=== PATIENT | female | born 1950 | race Caucasian/White ===

== ENCOUNTER 2021-02-03 09:04 | Inpatient (IN) ==
--- NOTE | 2021-02-03 10:04 | Emergency Department Note ---
Impression & Plan COVID-19, ESRD (end stage renal disease), AV fistula occlusion, Hypoxia ED Provider Note NAME: NICKY RAMAN AGE: 70 SEX: F : 1950 ARRIVES VIA: Ambulance INFORMANT: Patient ED PROVIDER(S): Abhay Carlton DO CHIEF COMPLAINT: Weak HPI: Patient is a 70-year-old female who presents to the ER from heart side as she was found to be slightly tachycardic with a low blood pressure. Oxygen saturations were in the 70s. She notes that she is dialysis dependent Wednesday. They attempted to get dialysis on Wednesday but were unable to as her fistula was not working. They have not done anything for this over the weekend per the patient's report. She notes that she is Covid positive. She tested positive on the of this month. She admits that she has nonproductive cough. Patient denies any belly pain, nausea, vomiting, or diarrhea. No dysuria, urgency, or frequency. No other exacerbating or remitting factors. No chest pain. ROS: See above HPI for pertinent positives & negatives. A total of 10 systems re viewed and were otherwise negative. PAST MEDICAL HISTORY:See Below PAST SURGICAL HISTORY:See Below FAMILY HISTORY:See Below SOCIAL HISTORY:See Below HOME MEDICATIONS:See Below ALLERGIES:See Below VITALS:See Below PHYSICAL EXAMINATION: GENERAL: Sitting up in bed, alert, chronically ill-appearing, disheveled, talking in full sentences on 4 L nasal cannula with intermittent cough EYE EXAM: normal conjunctiva. OROPHARYNX: mask in place NECK: supple, no nuchal rigidity, no adenopathy, non-tender LUNGS: Diminished bilaterally. Normal chest wall mechanics HEART: no murmurs, S1 normal and S2 normal ABDOMEN: abdomen soft, non-tender, normo-active bowel sounds, no masses, no rebound or guarding. UPPER EXTREMITIES: upper extremities are grossly normal. No thrill over fistula in left upper extremity LOWER EXTREMITIES: No pitting edema. NEURO EXAM: Normal sensorium, cranial nerves II-XII grossly intact, normal speech, no gross weakness of arms, no gross weakness of legs. MEDICAL DECISION MAKING: Patient is a 70-year-old female who presents the ER for hypotension hypoxia and tachycardia from heart side. IV was established blood work was obtained. Attempted to get dialysis on Wednesday but were unsuccessful as the fistula was not working. Per the patient's report nothing was done over the weekend. IV was established blood work was obtained. Labs show a mild leukocytosis of 11,000. Mild anemia today. INR was unremarkable. BMP with a creatinine of 3.3. Potassium 4. LFTs bilirubin was unremarkable. Troponin was negative. Lipase was unremarkable. Covid was positive. Chest x-ray with bilateral infiltrates. Patient was hypoxic at 70% on room air and was placed on 4 L nasal cannula and titrated up to the 90s. She was updated bedside. She was given Decadron. Ultrasound of the fistula shows an occlusion. Patient was updated bedside. Discussed with hospitalist admitted for further work-up. Triage Nursing notes reviewed. Limited review of prior medical records performed Vital Signs: reviewed and remarkable for tachy Differential diagnosis: Differential diagnoses includes but is not limited to pneumonia, bronchitis, COPD/Asthma exacerbation, pneumothorax, pulmonary embolism, congestive heart failure, acute coronary syndrome ER treatment provided: See below Diagnostics interpreted by me: ECG:/Tachycardia rate of 107 Left axis No PVCs QTC 453 Cardiac Monitoring: An order was placed for continuous cardiac monitoring. The monitor shows a rate of 101 with sinus rhythm. Laboratory studies: As stated above and show below. Imaging studies: Arterial ultrasound of left upper extremity shows no clot Consultation(s): Discussed with the hospitalist for further evaluation Procedures: none Critical Care: I have personally spent 33 minutes of critical care time in the direct roger gement of this patient. This includes bedside care, interpretation of diagnostic studies, and testing, discussion with consultants, patient, and family members, and other required patient management activities. This 33 minutes is in excess of all separately billable procedures. Past Med/Surg History Medical History Diabetes ESRD (end stage renal disease) GERD (gastroesophageal reflux disease) Parkinson disease Family History Father Diabetes Social History Smoking Status: Former smoker Second Hand Exposure: No; Hx Alcohol Use: No Hx Substance Use: No Preferred Language: Citizen Of [place] Communication Ability: Effective Beliefs That Will Affect Care: None Current Living Situation: Personal Care Facility Current Living Situation Comment: [facility] [place] Per patient Feels Safe at Home: Yes Assistive Devices: Denture - Upper, Denture - Lower, Oxygen - Continuous and Walker Allergies Allergies Allergy/AdvReac Type Severity Reaction Status Date / Time aspirin Allergy Unknown as Per Unverified 02/03/21 10:59 [facility] ibuprofen Allergy Unknown as Per Unverified 02/03/21 10:59 [facility] Iodinated Contrast Media Allergy Unknown as Per Unverified 02/03/21 10:59 [facility] Home Meds Home Medications Medication Instructions Recorded Confirmed atorvastatin 20 mg tablet 20 mg PO HS 02/03/21 02/03/21 carbidopa 10 mg-levodopa 100 mg 1 tab PO TID 02/03/21 02/03/21 tablet citalopram 10 mg tablet 10 mg PO QAM 02/03/21 02/03/21 cranberry extract 250 mg tablet 125 mg PO BID 02/03/21 02/03/21 ergocalciferol (vitamin D2) 1,250 1,250 mcg PO Q14D 02/03/21 02/03/21 mcg (50,000 unit) capsule folic acid 1 mg tablet 1 mg PO QAM 02/03/21 02/03/21 hydrocodone 5 mg-acetaminophen 325 1 tab PO Q6H PRN 02/03/21 02/03/21 mg tablet hydroxyzine HCl 10 mg tablet 10 mg PO TID PRN 02/03/21 02/03/21 insulin glargine 100 unit/mL (3 20 unit SUBCUT HS 02/03/21 02/03/21 mL) subcutaneous pen (Basaglar KwikPen U-100 Insulin) insulin glargine 100 unit/mL (3 25 unit SUBCUT HS 02/03/21 02/03/21 mL) subcutaneous pen (Basaglar KwikPen U-100 Insulin) insulin lispro 100 unit/mL 0 unit SUBCUT [facility] 02/03/21 02/03/21 subcutaneous pen (Humalog KwikPen (U-100) Insulin) lansoprazole 30 mg capsule,delayed 30 mg PO QAM 02/03/21 02/03/21 release hzyien-gaajcyqz-ptlvror 2 cap PO TIDM 02/03/21 02/03/21 12,000-38,000-60,000 unit capsule,delayed rel (Creon) magnesium oxide 400 mg (241.3 mg 400 mg PO QAM 02/03/21 02/03/21 magnesium) tablet metoclopramide HCl 10 mg tablet 10 mg PO ACHS 02/03/21 02/03/21 midodrine 5 mg tablet 5 mg PO TID 02/03/21 02/03/21 multivitamin 1 tab PO PM 02/03/21 02/03/21 omega-3 fatty acids 1,000 mg 1,000 mg PO BID 02/03/21 02/03/21 capsule (Fish Oil Concentrate) permethrin 5 % topical cream 1 applic TOPICAL HS 02/03/21 02/03/21 Results & Data (ED) Vital Signs Vital Signs - 24 hr 02/03/21 08:55 02/03/21 09:10 02/03/21 09:30 Temperature Temperature Source Pulse Rate 108 H 106 H Pulse Rate from SpO2 Sensor 109 H 106 H Pulse Rhythm Respiratory Rate 36 H 27 H Respiratory Effort / Characteristics Respiratory Depth Respiratory Pattern Blood Pressure 144/73 H 135/71 Blood Pressure Mean 96 92 Blood Pressure Position Pulse Oximetry 79 L 87 L 96 Oxygen Delivery Method Oxygen Flow Rate 0 Sepsis Recent Fever Within 48 Hours Sepsis New/Unexplained Change in Mental Status Sepsis Action Taken by Nursing Oxygen Flow Rate - Titration 4 Pulse Oximetry Post Tiitration 94 02/03/21 09:36 02/03/21 09:43 02/03/21 10:00 Temperature 37.5 C Temperature Source Oral Pulse Rate 100 H 99 H Pulse Rate from SpO2 Sensor 99 H Pulse Rhythm Regular Respiratory Rate 24 30 H Respiratory Effort / Characteristics Non-Labored Respiratory Depth Normal Respiratory Pattern Regular Blood Pressure 135/71 149/77 H Blood Pressure Mean 92 101 Blood Pressure Position Lying Pulse Oximetry 79 L 95 98 Oxygen Delivery Method Room Air Nasal Cannula Oxygen Flow Rate 4 Sepsis Recent Fever Within 48 Hours No Sepsis New/Unexplained Change in Mental Status No Sepsis Action Taken by Nursing No Action Required Oxygen Flow Rate - Titration Pulse Oximetry Post Tiitration 02/03/21 11:00 02/03/21 12:50 02/03/21 13:00 Temperature Temperature Source Pulse Rate 98 H 100 H 99 H Pulse Rate from SpO2 Sensor 97 H 102 H 100 H Pulse Rhythm Respiratory Rate 26 H 27 H 31 H Respiratory Effort / Characteristics Respiratory Depth Respiratory Pattern Blood Pressure 146/82 H 144/82 H Blood Pressure Mean 103 102 Blood Pressure Position Pulse Oximetry 98 96 94 Oxygen Delivery Method Nasal Cannula Oxygen Flow Rate 4 Sepsis Recent Fever Within 48 Hours Sepsis New/Unexplained Change in Mental Status Sepsis Action Taken by Nursing Oxygen Flow Rate - Titration Pulse Oximetry Post Tiitration Laboratory Data Result diagrams: 02/03/21 11:00 02/03/21 11:00 Lab Results 02/03/21 02/03/21 02/03/21 Range/Units 10:40 10:40 11:00 WBC 11.72 H (4.8-10.8) K/uL RBC 2.51 L (4.2-5.4) M/uL Hgb 8.2 L (12.0-16.0) g/dL Hct 24.8 L (37-47) % MCV 98.8 (80-100) fL MCH 32.7 (25-34) pg MCHC 33.1 (32-36) g/dL RDW Std Deviation 46.0 (36.4-46.3) fL RDW Coeff of Tin 12.6 (11.5-14.5) % Plt Count 202 (130-400) K/uL MPV 9.4 (7.4-10.4) fL Immature Gran % (Auto) 0.3 % Neut % (Auto) 92.2 % Lymph % (Auto) 3.1 % Mcdonald % (Auto) 3.8 % Eos % (Auto) 0.5 % Baso % (Auto) 0.1 % Neut # (Auto) 10.80 H (1.4-6.5) K/uL Lymph # (Auto) 0.36 L (1.2-3.4) K/uL Mcdonald # (Auto) 0.45 (0.11-0.59) K/uL Eos # (Auto) 0.06 (0-0.5) K/uL Baso # (Auto) 0.01 (0-0.2) K/uL Immature Gran # (Auto) 0.04 H (0.00-0.02) K/uL PT (9.0-12.0) Seconds INR (0.9-1.1) APTT (21.0-31.0) Seconds PTT Ratio Sodium (136-145) mmol/L Potassium (3.5-5.1) mmol/L Chloride (98-107) mmol/L Carbon Dioxide (21-32) mmol/L Anion Gap (3-11) BUN (7-18) mg/dl Creatinine (0.6-1.2) mg/dl Est Cr Clr Drug Dosing ml/min Est GFR ( Amer) ml/min Est GFR (Non-Af Amer) ml/min BUN/Creatinine Ratio (10-20) Glucose (70-99) mg/dl Calcium (8.5-10.1) mg/dl Total Bilirubin (0.2-1) mg/dl AST (15-37) U/L ALT (12-78) U/L Alkaline Phosphatase (45-117) U/L Troponin I (0-0.045) ng/ml Total Protein (6.4-8.2) gm/dl Albumin (3.4-5.0) gm/dl Globulin (2.5-4.0) gm/dl Albumin/Globulin Ratio (0.9-2) Lipase (73-393) U/L COVID-19 Eval Order Covid19 at [facility] SARS-CoV-2 (PCR) POSITIVE A* (Negative) 02/03/21 02/03/21 Range/Units 11:00 11:00 WBC (4.8-10.8) K/uL RBC (4.2-5.4) M/uL Hgb (12.0-16.0) g/dL Hct (37-47) % MCV (80-100) fL MCH (25-34) pg MCHC (32-36) g/dL RDW Std Deviation (36.4-46.3) fL RDW Coeff of Tin (11.5-14.5) % Plt Count (130-400) K/uL MPV (7.4-10.4) fL Immature Gran % (Auto) % Neut % (Auto) % Lymph % (Auto) % Mcdonald % (Auto) % Eos % (Auto) % Baso % (Auto) % Neut # (Auto) (1.4-6.5) K/uL Lymph # (Auto) (1.2-3.4) K/uL Mcdonald # (Auto) (0.11-0.59) K/uL Eos # (Auto) (0-0.5) K/uL Baso # (Auto) (0-0.2) K/uL Immature Gran # (Auto) (0.00-0.02) K/uL PT 10.6 (9.0-12.0) Seconds INR 1.0 (0.9-1.1) APTT 29.0 (21.0-31.0) Seconds PTT Ratio 1.1 Sodium 133 L (136-145) mmol/L Potassium 4.1 (3.5-5.1) mmol/L Chloride 96 L (98-107) mmol/L Carbon Dioxide 28 (21-32) mmol/L Anion Gap 9.0 (3-11) BUN 40 H (7-18) mg/dl Creatinine 3.30 H (0.6-1.2) mg/dl Est Cr Clr Drug Dosing 13.3 ml/min Est GFR ( Amer) 15.4 ml/min Est GFR (Non-Af Amer) 13.3 ml/min BUN/Creatinine Ratio 12.0 (10-20) Glucose 143 H (70-99) mg/dl Calcium 9.1 (8.5-10.1) mg/dl Total Bilirubin 0.5 (0.2-1) mg/dl AST 16 (15-37) U/L ALT < 6 L (12-78) U/L Alkaline Phosphatase 110 (45-117) U/L Troponin I < 0.015 (0-0.045) ng/ml Total Protein 6.0 L (6.4-8.2) gm/dl Albumin 2.0 L (3.4-5.0) gm/dl Globulin 4.0 (2.5-4.0) gm/dl Albumin/Globulin Ratio 0.5 L (0.9-2) Lipase 35 L (73-393) U/L COVID-19 Eval Order SARS-CoV-2 (PCR) (Negative) Administered Medications Discontinued Medications Dexamethasone Sodium Phosphate (DexamethasonePf 10 Mg/Ml Vial) 6 mg IV NOW ONE Stop: 02/03/21 12:13 Last Admin: 02/03/21 12:52 Dose: 6 mg Documented by: [id number] Furosemide (Furosemide 40 Mg/4 Ml Vial) 40 mg IV NOW STA Stop: 02/03/21 13:24 Last Admin: 02/03/21 14:01 Dose: 40 mg Documented by: [id number] Imaging Data Radiologist's Impression: Chest X-Ray 02/03/21 09:43 XR chest 1V portable HISTORY: 70 years-old Female Chest Pain acute atypical chest pain COMPARISON: None TECHNIQUE: Portable AP view of the chest FINDINGS: Cardiac silhouette is enlarged. Suspected mild pulmonary vascular congestion. No pneumothorax. Subsegmental right lung base opacities. Left basilar with lateral left midlung airspace consolidation measures up to 6.6 cm. Vascular stent grafts of the left axillary and brachial distribution. Surgical clips of the abdominal right upper quadrant. Degenerative changes of the shoulders and spine. IMPRESSION: 1. Cardiomegaly with pulmonary vascular congestion. 2. Left greater than right bibasilar opacities with masslike consolidation of the left midlung. Findings may represent multifocal pneumonia, however follow-up is needed to document complete resolution and exclude an underlying pulmonary lesion. ACT 112: Negative or not required by law. The above report was generated using voice recognition software. It may contain grammatical, syntax or spelling errors. Electronically signed by: Rafa Romero M.D. 02/03/2021 11:31 AM Hemodialysis Access Duplex US 02/03/21 09:58 US hemodialysis access CLINICAL HISTORY: fistula not working is covid + COMPARISON STUDY: No previous studies for comparison. TECHNIQUE: Grayscale, color and duplex Doppler sonography of the left upper extremity AV fistula was performed. FINDINGS: A left upper AV fistula is noted. This likely extends from the brachial artery to basilic vein. There is flow within the proximal anastomosis. Peak systolic velocity is 128 cm/s. However, no flow is identified within the remainder of the left upper extremity AV fistula. This represents fistula occlusion. IMPRESSION: Occluded left upper extremity AV fistula. ACT 112: Negative or not required by law. Electronically signed by: Yonatan Hobbs M.D. 02/03/2021 12:18 PM Discharge Plan Visit Data Chief Complaint: Respiratory Problems ED Provider: Abhay Carlton Discharge Problem: COVID-19, ESRD (end stage renal disease), AV fistula occlusion, Hypoxia Patient Disposition: Admitted As Inpatient Discharge Instructions Interventions: ED Discharge Assessment Last Done: 02/03/21 14:38
[2021-02-03 11:18] LABS: Basophils # (auto) 0.01 K/uL (0-0.2); Basophils % (auto) 0.1 %; Eosinophils # (auto) 0.06 K/uL (0-0.5); Eosinophils % (auto) 0.5 %; Hematocrit (blood only) 24.8 % (37-47); Hemoglobin 8.2 g/dL (12.0-16.0); Immature Granulocytes # (auto) 0.04 K/uL (0.00-0.02); Immature Granulocytes % (auto) 0.3 %; Lymphocytes # (auto) 0.36 K/uL (1.2-3.4); Lymphocytes % (auto) 3.1 %; Mean Corpuscular Hemoglobin 32.7 pg (25-34); Mean Corpuscular Hgb Conc 33.1 g/dL (32-36); Mean Corpuscular Volume 98.8 fL (80-100); Mean Platelet Volume 9.4 fL (7.4-10.4); Monocytes # (auto) 0.45 K/uL (0.11-0.59); Monocytes % (auto) 3.8 %; Neutrophils % (auto) 92.2 %; Platelet Count 202 K/uL (130-400); RDW Coefficient of Variation 12.6 % (11.5-14.5); Red Blood Count 2.51 M/uL (4.2-5.4); White Blood Count 11.72 K/uL (4.8-10.8)
[2021-02-03 11:29] LABS: Partial Thromboplastin Ratio 1.1; Prothrombin Time 10.6 Seconds (9.0-12.0)
--- NOTE | 2021-02-03 11:33 | XRay Report ---
XR chest 1V portable HISTORY: 70 years-old Female Chest Pain acute atypical chest pain COMPARISON: None TECHNIQUE: Portable AP view of the chest FINDINGS: Cardiac silhouette is enlarged. Suspected mild pulmonary vascular congestion. No pneumothorax. Subseg mental right lung base opacities. Left basilar with lateral left midlung airspace consolidation measu res up to 6.6 cm. Vascular stent grafts of the left axillary and brachial distribution. Surgical clip s of the abdominal right upper quadrant. Degenerative changes of the shoulders and spine. IMPRESSION: 1. Cardiomegaly with pulmonary vascular congestion. 2. Left greater than right bibasilar opacities with masslike consolidation of the left midlung. Findi ngs may represent multifocal pneumonia, however follow-up is needed to document complete resolution a nd exclude an underlying pulmonary lesion. ACT 112: Negative or not required by law. The above report was generated using voice recognition software. It may contain grammatical, syntax o r spelling errors. Electronically signed by: Rafa Romero M.D. 02/03/2021 11:31 AM
[2021-02-03 11:45] LABS: Alanine Aminotransferase < 6 U/L (12-78); Aspartate Aminotransferase 16 U/L (15-37); Blood Urea Nitrogen 40 mg/dl (7-18); Calcium 9.1 mg/dl (8.5-10.1); Carbon Dioxide 28 mmol/L (21-32); Chloride 96 mmol/L (98-107); Creatinine Clr Calc Pharmacy 13.3 ml/min; Est GFR (African American) 15.4 ml/min; Est GFR (Non-African American) 13.3 ml/min; Glucose 143 mg/dl (70-99); Lipase 35 U/L (73-393); Potassium 4.1 mmol/L (3.5-5.1); Sodium 133 mmol/L (136-145)
[2021-02-03 11:50] LABS: Albumin Globulin Ratio 0.5 (0.9-2); Alkaline Phosphatase 110 U/L (45-117); Bilirubin,Total 0.5 mg/dl (0.2-1); Troponin I < 0.015 ng/ml (0-0.045)
[2021-02-03] MEDS ORDERED: dexAMETHasone**PF** 10 MG/ML VIAL IV ONE (12:12)
--- NOTE | 2021-02-03 12:19 | Ultrasound Report ---
US hemodialysis access CLINICAL HISTORY: fistula not working is covid + COMPARISON STUDY: No previous studies for comparison. TECHNIQUE: Grayscale, color and duplex Doppler sonography of the left upper extremity AV fistula was performed. FINDINGS: A left upper AV fistula is noted. This likely extends from the brachial artery to basilic v ein. There is flow within the proximal anastomosis. Peak systolic velocity is 128 cm/s. However, no f low is identified within the remainder of the left upper extremity AV fistula. This represents fistul a occlusion. IMPRESSION: Occluded left upper extremity AV fistula. ACT 112: Negative or not required by law. Electronically signed by: Yonatan Hobbs M.D. 02/03/2021 12:18 PM
[2021-02-03] MEDS ORDERED: FUROSEMIDE 40 MG/4 ML VIAL IV STA (13:23)
--- NOTE | 2021-02-03 13:34 | History & Physical Report ---
Date of Service February 03, 2021 Assessment & Plan (1) AV fistula occlusion: Plan: AVF Duplex on admission showed occlusion. Likely occluded since HD session on Wednesday, 01/31. - Vascular surgery consulted -> Discussed with Demetria Esparza. Will make patient NPO at midnight. Will be seen in the morning with plan for fistula opening vs. tunnelled-line tomorrow. - Continue Plavix (2) ESRD (end stage renal disease): Plan: Per patient, she follows with [facility] in [place]. Only gets HD on Wednesday and Fridays and continues to make urine. - CXR indicated volume overload - Discussed with nephrology -> Give dose of Lasix and will plan for HD once access established (likely tomorrow). - Continue midodrine (3) COVID-19: Plan: Reports being diagnosed ~01/21/2021 with no symptoms at the time (routine SNF testing). A few days later, developed cough which has persisted. Otherwise, no symptoms. - Hold dexamethasone at this time. Unclear to me if her symptoms are related to volume overload vs. Covid - Monitor O2 sats -> Presently only requiring 2L NC. If her O2 worsens despite diuresis and improvement in volume status, would start steroids. - Continue isolation precautions (4) Diabetes: Plan: No known A1c. Does not know her regimen at [facility]. - Long-acting dropped to 15 units HS (from either 20 units, 25 units, or 45 units; it is unclear and patient doesn't know). - Sliding scale insulin - Ordered A1c for AM (5) Parkinson disease: Plan: Presumed diagnosis. - Continue Sinemet (6) GERD (gastroesophageal reflux disease): Plan: - Continue PPI (7) DVT prophylaxis: Plan: Heparin 5000 units SQ Q12h History of Present Illness Primary Care Provider: Phan Modidhruv 70yo F w/ hx of DM and ESRD who presents to the hospital with hypoxemia from her SNF. She reports that she got routine testing for Covid around 01/21/2021 at [facility]. A few days after that, she reports she developed a cough that has continued to today. Otherwise, she denies fevers/chills/sweats, nasal congestion, shortness of breath, diarrhea, constipation or other issues from the Covid. On Wednesday, she was at her HD session, and they were unable to run her session due to flow issues. She was sent back to [facility] without her session. Today, she was noted to be hypoxemic and was sent to the ED for evaluation. She denies any worsening of her cough today and denies shortness of breath during my inteview. Allergies Allergy/AdvReac Type Severity Reaction Status Date / Time aspirin Allergy Unknown as Per Unverified 02/03/21 10:59 [facility] ibuprofen Allergy Unknown as Per Unverified 02/03/21 10:59 [facility] Iodinated Contrast Media Allergy Unknown as Per Unverified 02/03/21 10:59 [facility] Home Medications Medication Instructions Recorded Confirmed Type atorvastatin 20 mg tablet 20 mg PO HS 02/03/21 02/03/21 History carbidopa 10 mg-levodopa 100 mg 1 tab PO TID 02/03/21 02/03/21 History tablet citalopram 10 mg tablet 10 mg PO QAM 02/03/21 02/03/21 History cranberry extract 250 mg tablet 125 mg PO BID 02/03/21 02/03/21 History ergocalciferol (vitamin D2) 1,250 1,250 mcg PO Q14D 02/03/21 02/03/21 History mcg (50,000 unit) capsule folic acid 1 mg tablet 1 mg PO QAM 02/03/21 02/03/21 History hydrocodone 5 mg-acetaminophen 325 1 tab PO Q6H PRN 02/03/21 02/03/21 History mg tablet hydroxyzine HCl 10 mg tablet 10 mg PO TID PRN 02/03/21 02/03/21 History insulin glargine 100 unit/mL (3 20 unit SUBCUT HS 02/03/21 02/03/21 History mL) subcutaneous pen (Basaglar KwikPen U-100 Insulin) insulin glargine 100 unit/mL (3 25 unit SUBCUT HS 02/03/21 02/03/21 History mL) subcutaneous pen (Basaglar KwikPen U-100 Insulin) insulin lispro 100 unit/mL 0 unit SUBCUT ACHS 02/03/21 02/03/21 History subcutaneous pen (Humalog KwikPen (U-100) Insulin) lansoprazole 30 mg capsule,delayed 30 mg PO QAM 02/03/21 02/03/21 History release uzpviv-voofnwbm-gltkral 2 cap PO TIDM 02/03/21 02/03/21 History 12,000-38,000-60,000 unit capsule,delayed rel (Creon) magnesium oxide 400 mg (241.3 mg 400 mg PO QAM 02/03/21 02/03/21 History magnesium) tablet metoclopramide HCl 10 mg tablet 10 mg PO ACHS 02/03/21 02/03/21 History midodrine 5 mg tablet 5 mg PO TID 02/03/21 02/03/21 History multivitamin 1 tab PO PM 02/03/21 02/03/21 History omega-3 fatty acids 1,000 mg 1,000 mg PO BID 02/03/21 02/03/21 History capsule (Fish Oil Concentrate) permethrin 5 % topical cream 1 applic TOPICAL HS 02/03/21 02/03/21 History Past Med/Surg History Medical History Diabetes ESRD (end stage renal disease) GERD (gastroesophageal reflux disease) Parkinson disease Family History Father Diabetes Social History Preferred Language: French Feels Safe at Home: Yes Review of Systems Review of Systems: All systems reviewed & are unremarkable except as noted in HPI & below Physical Exam Constitutional: WD/WN, vitals as above Eyes: EOM intact bilaterally; no conjunctival abnormality ENMT: external ear and nose normal, oropharynx normal Neck: trachea midline, no thyromegaly normal visual inspection Respiratory: normal respiratory effort, lungs clear to auscultation no respiratory distress Cardiovascular: RRR, no murmur, no edema Extremities: + AV fistula (No bruit) Gastrointestinal (Abdomen): Inspection/Auscultation: abdomen normal to inspection; abdomen not distended Musculoskeletal: no cyanosis or clubbing, extremities motor strength 5/5 Skin: no rashes, warm and dry Neurologic: moves all extremities and awake Psychiatric: Orientation: alert, oriented to person and cooperative Results & Data Results & Data ([facility]) Vital Signs (Past 12 Hours) Vital Signs Temp Pulse Resp BP Pulse Ox 02/03/21 12:50 100 H 27 H 146/82 H 96 02/03/21 11:00 98 H 26 H 98 02/03/21 10:00 99 H 30 H 149/77 H 98 02/03/21 09:43 95 02/03/21 09:36 37.5 C 100 H 24 135/71 79 L 02/03/21 09:30 106 H 27 H 135/71 96 02/03/21 09:10 108 H 36 H 144/73 H 87 L 02/03/21 08:55 79 L Code Status & VTE Plan VTE Prophylaxis Plan VTE Prophylaxis will be ordered: Yes PG Care Time/CCT Total # of Minutes Spent Total Time Spent with Patient: Total time spent is greater than 50% in coordination of care (as documented) at patient's floor/unit and/or counseling patient: Coding Level of Care Code 96650 Initial Inpt Care Lvl 3 Diagnoses AV fistula occlusion T82.898A COVID-19 U07.1 ESRD (end stage renal disease) N18.6 Diabetes E11.9 Parkinson disease G20 GERD (gastroesophageal reflux disease) K21.9 DVT prophylaxis Z29.9
--- NOTE | 2021-02-03 14:32 | Nephrology Consultation ---
Date of Consultation February 03, 2021 Assessment & Plan (1) ESRD (end stage renal disease): ESRD on HD MWF, admitted with nonfunctioning AV fistula and missed dialysis. Last dialysis was last Wednesday. Currently volume overloaded with elevated blood pressure. Electrolyte acceptable. Doppler of AV fistula showed clotted AV fistula. -- Appreciate vascular surgery evaluation, may need tunneled dialysis catheter if AV fistula cannot be declotted tomorrow. -- Bumex 4 mg IV x 1 dose now -- continued Nephrocaps and renal diet -- dose medications for GFR less than 10 -- Avoid IV fluid Thank you for allowing me to participate in your patient's care. It was a pleasure to see Federica. History of Present Illness Reason for Consultation: ESRD on HD, Malfunctioning hemodialysis access, missed HD. History of Present Illness Federica Herrera is a 70-year-old female with ESRD on hemodialysis Wednesday admitted to the hospital with malfunctioning AV fistula. Nephrology consult was requested to manage dialysis. EMR records reviewed in detail during patient's visit. Federica has ESRD on hemodialysis MWF at [facility] in [place]. She has been staying at [facility] in [place] for last 1 week after a fall. She went for dialysis Wednesday when she was found to have malfunctioning AV fistula and dialysis was canceled. As over the weekend she was getting short of breath and her oxygen saturation was found to be low at [facility] she was brought to ER. In ER Doppler of AV fistula showed clotted left BC AV fistula. Vascular surgery was consulted for further management. She reports having some shortness of breath which improved with NC O2. She still makes urine. Chest x- ray showed bilateral pulmonary vascular congestion. Lab showed normal electrolyte. She was also found to be COVID positive, did receive COVID vaccine in June. Never smoker, no f/h of ESRD, CKD. Retired, lives in a intermediate designer care facility in [facility]. Receive Lasix 40 mg/d. Allergies Allergy/AdvReac Type Severity Reaction Status Date / Time aspirin Allergy Unknown as Per Unverified 02/03/21 10:59 [facility] MAR ibuprofen Allergy Unknown as Per Unverified 02/03/21 10:59 [facility] Iodinated Contrast Media Allergy Unknown as Per Unverified 02/03/21 10:59 [facility] MAR Home Medications Medication Instructions Recorded Confirmed Type atorvastatin 20 mg tablet 20 mg PO HS 02/03/21 02/03/21 History carbidopa 10 mg-levodopa 100 mg 1 tab PO TID 02/03/21 02/03/21 History tablet citalopram 10 mg tablet 10 mg PO QAM 02/03/21 02/03/21 History cranberry extract 250 mg tablet 125 mg PO BID 02/03/21 02/03/21 History ergocalciferol (vitamin D2) 1,250 1,250 mcg PO Q14D 02/03/21 02/03/21 History mcg (50,000 unit) capsule folic acid 1 mg tablet 1 mg PO QAM 02/03/21 02/03/21 History hydrocodone 5 mg-acetaminophen 325 1 tab PO Q6H PRN 02/03/21 02/03/21 History mg tablet hydroxyzine HCl 10 mg tablet 10 mg PO TID PRN 02/03/21 02/03/21 History insulin glargine 100 unit/mL (3 20 unit SUBCUT HS 02/03/21 02/03/21 History mL) subcutaneous pen (Basaglar KwikPen U-100 Insulin) insulin glargine 100 unit/mL (3 25 unit SUBCUT 02/03/21 02/03/21 History mL) subcutaneous pen (Basaglar KwikPen U-100 Insulin) insulin lispro 100 unit/mL 0 unit SUBCUT [facility] 02/03/21 02/03/21 History subcutaneous pen (Humalog KwikPen (U-100) Insulin) lansoprazole 30 mg capsule,delayed 30 mg PO QAM 02/03/21 02/03/21 History release [id number] 2 cap PO TIDM 02/03/21 02/03/21 History 12,000-38,000-60,000 unit capsule,delayed rel (Creon) magnesium oxide 400 mg (241.3 mg 400 mg PO QAM 02/03/21 02/03/21 History magnesium) tablet metoclopramide HCl 10 mg tablet 10 mg PO ACHS 02/03/21 02/03/21 History midodrine 5 mg tablet 5 mg PO TID 02/03/21 02/03/21 History multivitamin 1 tab PO PM 02/03/21 02/03/21 History omega-3 fatty acids 1,000 mg 1,000 mg PO BID 02/03/21 02/03/21 History capsule (Fish Oil Concentrate) permethrin 5 % topical cream 1 applic TOPICAL HS 02/03/21 02/03/21 History Patient History Medical History Diabetes ESRD (end stage renal disease) GERD (gastroesophageal reflux disease) Parkinson disease Family History Father Diabetes Social History Smoking Status: Former smoker Second Hand Exposure: No; Hx Alcohol Use: No Hx Substance Use: No Preferred Language: Yakut Communication Ability: Effective Beliefs That Will Affect Care: None Current Living Situation: Personal Care Facility Current Living Situation Comment: [facility] [place] Per patient Feels Safe at Home: Yes Assistive Devices: Denture - Upper, Denture - Lower, Oxygen - Continuous and Walker Review of Systems Review of Systems: Detailed review of system was otherwise unremarkable except mentioned in HPI Physical Exam Constitutional: WD/WN, vitals as above well developed and well nourished; no acute distress Eyes: PERRL, conjunctivae normal, anicteric sclerae ENMT: external ear and nose normal, oropharynx normal Ears: no hearing impairment Neck: trachea midline Respiratory: no cough Auscultation: + crackles; no wheezes Cardiovascular: RRR, no murmur, no edema Extremities: + AV fistula (left BC AVF with no thrill or bruit.) Gastrointestinal (Abdomen): normal bowel sounds, soft, nontender, no hepatosplenomegaly Percussion/Palpation: abdomen nontender, no guarding and abdomen not rigid Musculoskeletal: Extremities: extremities normal to inspection Gait: normal gait Skin: no rashes, warm and dry Neurologic: moves all extremities and awake Psychiatric: A+Ox3, euthymic affect Results & Data ([facility]) Vital Signs (Past 12 Hours) Vital Signs Temp Pulse Resp BP Pulse Ox 02/03/21 14:00 99 H 20 153/98 H 93 02/03/21 13:30 97 H 21 155/108 H 93 02/03/21 13:00 99 H 31 H 144/82 H 94 02/03/21 12:50 100 H 27 H 146/82 H 96 02/03/21 11:00 98 H 26 H 98 02/03/21 10:00 99 H 30 H 149/77 H 98 02/03/21 09:43 95 02/03/21 09:36 37.5 C 100 H 24 135/71 79 L 02/03/21 09:30 106 H 27 H 135/71 96 02/03/21 09:10 108 H 36 H 144/73 H 87 L 02/03/21 08:55 79 L PG Care Time/CCT Total # of Minutes Spent Total Time Spent with Patient: Total time spent is greater than 50% in coordination of care (as documented) at patient's floor/unit and/or counseling patient: Coding Level of Care Code 07871 Inpt Consult Level 3 Diagnoses ESRD (end stage renal disease) N18.6
[2021-02-03] MEDS ORDERED: ONDANSETRON INJ 2 MG/ML 2 ML VIAL IV PRN (15:30)
[2021-02-03] MEDS ORDERED: GLUCOSE 40% GEL 15 GM TUBE PO PRN (15:30)
[2021-02-03] MEDS ORDERED: GLUCOSE 10 TABS/TUBE PO PRN (15:30)
[2021-02-03] MEDS ORDERED: HYDROCODONE/ACETAMOPHEN 5/325MG TAB PO PRN (15:30)
[2021-02-03] MEDS ORDERED: GLUCAGON FOR INJ 1 MG VIAL SQ PRN (15:30)
[2021-02-03] MEDS ORDERED: DEXTROSE 50% 50 ML SYRINGE IV PRN (15:30)
[2021-02-03] MEDS ORDERED: BUMETANIDE IV BOLUS FROM BAG IV ONE (15:38)
[2021-02-03] MEDS ORDERED: BUMETANIDE 4 MG in SYRINGE 0 ML IV ONE (16:00)
[2021-02-03] MEDS: INSULIN ASPART 100 UNITS/ML 3 ML PEN SC SCH ×2 (17:18→21:50)
[2021-02-03] MEDS: CARBIDOPA/LEVODOP 10/100MG TAB PO SCH ×2 (18:03→21:39)
[2021-02-03] MEDS: PANCREAZE (LIPASE 10,500U) CAP PO SCH (18:04)
[2021-02-03] MEDS: MIDODRINE HCL 2.5 MG TAB PO SCH (18:05)
[2021-02-03] MEDS: METOCLOPRAMIDE HCL 10 MG TABLET PO SCH ×2 (18:05→21:38)
[2021-02-03] MEDS: ATORVASTATIN 20 MG TAB PO SCH (21:39)
[2021-02-03] MEDS: HEPARIN SOD 5,000 UNIT/0.5 ML VIAL SQ SCH ×2 (21:40→22:50)
[2021-02-03] MEDS: INSULIN GLARGINE SOLOSTAR 100 UNITS/ML 3 ML PEN SQ SCH (21:50)
[2021-02-04] MEDS ORDERED: INSULIN HUMAN REGULAR PER UNIT 5 UNITS in SYRINGE 4.95 ML IV ONE (01:00)
[2021-02-04] MEDS ORDERED: INSULIN ASPART 100 UNITS/ML 3 ML PEN SC ONE (01:00)
[2021-02-04] MEDS: ACETAMINOPHEN 325 MG TAB PO PRN (04:06)
[2021-02-04 06:59] LABS: Hematocrit (blood only) 24.9 % (37-47); Hemoglobin 8.4 g/dL (12.0-16.0); Mean Corpuscular Hemoglobin 32.7 pg (25-34); Mean Corpuscular Hgb Conc 33.7 g/dL (32-36); Mean Corpuscular Volume 96.9 fL (80-100); Mean Platelet Volume 9.9 fL (7.4-10.4); Platelet Count 241 K/uL (130-400); RDW Coefficient of Variation 12.7 % (11.5-14.5); RDW Standard Deviation 44.6 fL (36.4-46.3); Red Blood Count 2.57 M/uL (4.2-5.4); White Blood Count 7.59 K/uL (4.8-10.8)
[2021-02-04 07:27] LABS: BUN Creatinine Ratio 14.7 (10-20); Calcium 9.7 mg/dl (8.5-10.1); Creatinine Clr Calc Pharmacy 12.7 ml/min; Est GFR (African American) 14.5 ml/min; Est GFR (Non-African American) 12.5 ml/min; Magnesium 1.9 mg/dl (1.8-2.4); Potassium 4.1 mmol/L (3.5-5.1)
[2021-02-04] MEDS ORDERED: EPOETIN ALFA 20,000 UNITS/ML VIAL IV STA (08:09)
[2021-02-04] MEDS: INSULIN ASPART 100 UNITS/ML 3 ML PEN SC SCH ×4 (08:20→21:55)
--- NOTE | 2021-02-04 08:44 | XRay Report ---
XR chest 1V portable HISTORY: 70 years-old Female hypoxia acute hypoxia COMPARISON: Chest radiograph 02/03/2021 TECHNIQUE: Portable AP view of the chest FINDINGS: Cardiac silhouette is enlarged. Mildly decreased pulmonary vascular congestion. No pneumothorax. Prob able trace left pleural effusion. Left greater than right bibasilar with masslike lateral left midlun g airspace consolidation. Lucency within the large consolidation may reflect central cavitation. No s ignificant change from comparison. Vascular grafts of the left subclavian brachial distributions. No acute fracture. IMPRESSION: 1. Persistent bibasilar opacities with masslike consolidation of the lateral left midlung containing equivocal central cavitation. Correlation with chest CT recommended. 2. Cardiomegaly. 3. Trace left pleural effusion suggested. ACT 112: Negative or not required by law. The above report was generated using voice recognition software. It may contain grammatical, syntax o r spelling errors. Electronically signed by: Rafa Romero M.D. 02/04/2021 8:43 AM
[2021-02-04 09:04] LABS: Estimated Average Glucose 148 mg/dl; Hemoglobin A1C 6.8 % (4.5-5.6)
[2021-02-04 09:05] LABS: Hepatitis B Surface Ab Quant 23.89 mIU/mL (>or=10mIU/mL Immune); Hepatitis B Surface Antibody Immune
[2021-02-04 09:16] LABS: Hepatitis B Surf Ag Rflx Conf Neg (Neg)
--- NOTE | 2021-02-04 10:30 | Nephrology Progress Note ---
Date of Service February 04, 2021 Assessment & Plan (1) ESRD (end stage renal disease): (2) AV fistula occlusion: (3) Anemia due to chronic kidney disease: (4) COVID-19: Plan: ESRD on HD MWF, admitted with nonfunctioning AV fistula and missed dialysis. Last dialysis was last Wednesday. Currently volume overloaded with elevated blood pressure. Electrolyte acceptable. Doppler of AV fistula showed clotted AV fistula. -- waiting on AV fistula declotting or TDC today. -- Epogen 68408 units with HD today -- continued Nephrocaps and renal diet -- dose medications for GFR less than 10 -- Avoid IV fluid Will follow Admission and Anticipated Discharge Date Admission Date: February 03, 2021 Subjective Labs and vital signs reviewed, electrolyte has been acceptable. Blood pressure well controlled. Continue to be on 6 L oxygen via nasal cannula. Had 650 mL urine output after Bumex 4 mg IV yesterday. Waiting on AV fistula declotting/ tunnel dialysis catheter today. Physical Exam Physical Exam: a direct physical exam was not done as patient is in COVID isolation Results & Data ([facility]) Vital Signs (Past 12 Hours) Vital Signs Temp Pulse Resp BP Pulse Ox 02/04/21 07:33 36.6 C 109 H 20 132/71 98 02/04/21 03:43 36.9 C 97 H 20 100/57 L 92 02/03/21 22:41 36.8 C 98 H 22 102/43 L 97 PG Care Time/CCT Total # of Minutes Spent Total Time Spent with Patient: Total time spent is greater than 50% in coordination of care (as documented) at patient's floor/unit and/or counseling patient: Coding Level of Care Code 06119 Subseq Hosp Care Lvl 2 Diagnoses ESRD (end stage renal disease) N18.6 AV fistula occlusion T82.898A Encounter type: initial encounter Anemia due to chronic kidney disease N18.9; D63.1 COVID-19 U07.1 (1) AV fistula occlusion Encounter type: initial encounter Qualified Code(s): T82.898A - Other specified complication of vascular prosthetic devices, implants and grafts, initial encounter
--- NOTE | 2021-02-04 11:38 | Procedure Note ---
Procedure Note Date of Service February 04, 2021 Note Procedure date: Noted above Procedure: Temporary hemodialysis catheter Pre-procedure indication: Need for temporary hemodialysis access Post-procedure Diagnosis: same as above Prior to Procedure: Informed Consent: The risks, benefits, indications, potential complications, and alternatives were explained to the patient and informed consent obtained, verbally due to COVID-19 protocol. Attending Staff: Joshua Sandhu DO Resident/APC: Not applicable Skin Prep: Chlorhexidine Anesthesia: 4 mL 1% lidocaine without epinephrine The identity of the patient was confirmed and a bedside time out was performed. Description of Procedure: After sterile prep and sterile drape utilizing standard sterile technique the superficial skin of the left jugular area was anesthetized. The target vessel was identified and entered with an 18-gauge needle. Dark venous blood return was noted. A guidewire was inserted through the needle and into the vessel. The needle was withdrawn and a skin wisam was made. A tissue dilator was advanced via Seldinger technique and removed. A double lumen catheter was inserted via Seldinger technique and the guidewire removed. All ports reid and flushed easily. A Biopatch was placed, and the catheter was secured via nylon suture. A sterile dressing was then applied. Complications: None Estimated blood loss: Trace Patient tolerated the procedure well. Procedure Date: Noted Above Procedure: Procedural Ultrasound Indication: Central venous access Attending: Joshua Sandhu DO Resident/Physician Rd Scientist: Not applicable Artery visualized: Yes Vein visualized: Yes Compressible Vein: Yes Vein patent: Yes Guidewire or Short Catheter seen in vein prior to dilation: Yes Line confirmed in Vein with ultrasound: Yes Lung Sliding on side of attempt (if applicable): NA If no lung sliding or not obtained has CXR been ordered: Yes Impression: Successful central venous access placement Coding CPT Codes Tubes, Drains, and Vasc Access - Tubes, Drains, and Vasc Access: [id number] Insertion Of Non-tunneled Catheter Age 3 Yrs> ([id number]) [facility] Procedure Codes (Charges) Tubes, Drains, and Vasc Access Procedure 1: Tubes, Drains, and Vasc Access: [id number] Insertion Of Non-tunneled Catheter Age 3 Yrs>
[2021-02-04] MEDS: PANCREAZE (LIPASE 10,500U) CAP PO SCH ×3 (11:56→17:49)
[2021-02-04] MEDS: METOCLOPRAMIDE HCL 10 MG TABLET PO SCH ×4 (11:56→21:50)
[2021-02-04] MEDS: CITALOPRAM 20 MG TAB PO SCH (11:57)
[2021-02-04] MEDS: MIDODRINE HCL 2.5 MG TAB PO SCH ×3 (11:57→17:48)
[2021-02-04] MEDS: CARBIDOPA/LEVODOP 10/100MG TAB PO SCH ×3 (11:57→21:50)
[2021-02-04] MEDS: HEPARIN SOD 5,000 UNIT/0.5 ML VIAL SQ SCH ×2 (11:57→21:50)
[2021-02-04] MEDS: FOLIC ACID 1 MG TAB PO SCH (11:58)
[2021-02-04] MEDS: PANTOprazole 40 MG TAB PO SCH (11:58)
--- NOTE | 2021-02-04 12:37 | XRay Report ---
XR chest 1V portable HISTORY: 70 years-old Female lines status post placement of a left internal jugular central venous c atheter COMPARISON: Chest radiograph of same day at 8:02 AM TECHNIQUE: Portable AP view of the chest FINDINGS: Cardiac silhouette is enlarged. Status post placement of a left IJ central venous catheter distal tip terminating in the expected location of the proximal SVC. Mildly decreased pulmonary vascular conges tion. No pneumothorax. Probable trace left pleural effusion. Left greater than right bibasilar with m asslike lateral left midlung airspace consolidation. The previously questioned area of cavitation is not definitively seen. No significant change from comparison. Vascular grafts of the left subclavian brachial distributions. No acute fracture. IMPRESSION: Status post placement of a left IJ central venous catheter with distal tip in the expecte d location of the proximal SVC. No postprocedural pneumothorax. ACT 112: Negative or not required by law. The above report was generated using voice recognition software. It may contain grammatical, syntax o r spelling errors. Electronically signed by: Rafa Romero M.D. 02/04/2021 12:35 PM
--- NOTE | 2021-02-04 21:04 | Hospitalist Progress Note ---
Date of Service February 04, 2021 Assessment & Plan (1) AV fistula occlusion: Plan: AVF Duplex on admission showed occlusion. Likely occluded since HD session on Wednesday, 01/31. - Vascular surgery consulted -> Discussed with Demetria Esparza. Will make patient NPO at midnight. Will be seen in the morning with plan for fistula opening vs. tunnelled-line tomorrow. - Continue Plavix - S/P Temporary hemodialysis catheter ON 02/04 Patient had dialysis on 02/04 Patient is feeling better. (2) ESRD (end stage renal disease): Plan: Per patient, she follows with [facility] in [place]. Only gets HD on Wednesday and Fridays and continues to make urine. - CXR indicated volume overload - Discussed with nephrology -> Give dose of Lasix and will plan for HD once access established (likely tomorrow). - Continue midodrine (3) COVID-19: Plan: Reports being diagnosed ~01/21/2021 with no symptoms at the time (routine SNF testing). A few days later, developed cough which has persisted. Otherwise, no symptoms. - Hold dexamethasone at this time. Unclear to me if her symptoms are related to volume overload vs. Covid - Monitor O2 sats -> Presently only requiring 2L NC. If her O2 worsens despite diuresis and improvement in volume status, would start steroids. - Continue isolation precautions (4) Diabetes: Plan: No known A1c. Does not know her regimen at [facility]. - Long-acting dropped to 15 units HS (from either 20 units, 25 units, or 45 units; it is unclear and patient doesn't know). - Sliding scale insulin - Ordered A1c for AM (5) Parkinson disease: Plan: Presumed diagnosis. - Continue Sinemet (6) GERD (gastroesophageal reflux disease): Plan: - Continue PPI (7) DVT prophylaxis: Plan: Heparin 5000 units SQ Q12h Admission and Anticipated Discharge Date Admission Date: February 03, 2021 Subjective Patient reports feeling better. She states she had dialysis earlier in the day. Review of Systems Review of Systems: All systems reviewed & are unremarkable except as noted in HPI & below Physical Exam Physical Exam: Constitutional: WD/WN, vitals as above Eyes: EOM intact bilaterally; no conjunctival abnormality ENMT: external ear and nose normal, oropharynx normal Neck: trachea midline, no thyromegaly normal visual inspection Respiratory: normal respiratory effort, lungs clear to auscultation no respiratory distress Cardiovascular: RRR, no murmur, no edema Extremities: + AV fistula (No bruit) Gastrointestinal (Abdomen): Inspection/Auscultation: abdomen normal to inspection; abdomen not distended Musculoskeletal: no cyanosis or clubbing, extremities motor strength 5/5 Skin: no rashes, warm and dry Neurologic: moves all extremities and awake Psychiatric: Orientation: alert, oriented to person and cooperative Results & Data Results & Data ([facility]) Vital Signs (Past 12 Hours) Vital Signs Temp Pulse Pulse Pulse Resp BP BP 02/04/21 20:35 36.8 C 87 20 141/55 H 02/04/21 16:20 36.7 C 83 116/78 02/04/21 16:00 82 100/49 L 02/04/21 15:40 82 106/52 L 02/04/21 15:20 86 100/54 L 02/04/21 15:00 83 93/43 L 02/04/21 14:40 87 105/56 L 02/04/21 14:20 86 108/61 02/04/21 14:00 87 74/49 L 02/04/21 13:40 80 103/58 L 02/04/21 13:20 85 79/66 L 02/04/21 13:00 85 158/89 H 02/04/21 12:40 87 173/87 H 02/04/21 12:20 78 168/83 H 02/04/21 12:10 36.7 C 81 02/04/21 11:40 36.4 C L 110 H 19 122/73 Pulse Ox 02/04/21 20:35 96 02/04/21 16:20 02/04/21 16:00 02/04/21 15:40 02/04/21 15:20 02/04/21 15:00 02/04/21 14:40 02/04/21 14:20 02/04/21 14:00 02/04/21 13:40 02/04/21 13:20 02/04/21 13:00 02/04/21 12:40 02/04/21 12:20 02/04/21 12:10 02/04/21 11:40 84 L PG Care Time/CCT Total # of Minutes Spent Total Time Spent with Patient: Total time spent is greater than 50% in coordination of care (as documented) at patient's floor/unit and/or counseling patient: Coding Level of Care Code 71272 Subseq Hosp Care Lvl 2 Diagnoses AV fistula occlusion T82.898A Encounter type: initial encounter ESRD (end stage renal disease) N18.6 COVID-19 U07.1 Diabetes E11.9 Parkinson disease G20 GERD (gastroesophageal reflux disease) K21.9 DVT prophylaxis Z29.9 Time Spent (min) 25 (1) AV fistula occlusion Encounter type: initial encounter Qualified Code(s): T82.898A - Other specified complication of vascular prosthetic devices, implants and grafts, initial encounter
[2021-02-04] MEDS: ATORVASTATIN 20 MG TAB PO SCH (21:50)
[2021-02-04] MEDS: INSULIN GLARGINE SOLOSTAR 100 UNITS/ML 3 ML PEN SQ SCH (21:55)
[2021-02-05 08:01] LABS: Hematocrit (blood only) 25.7 % (37-47); Hemoglobin 8.3 g/dL (12.0-16.0); Mean Corpuscular Hemoglobin 32.3 pg (25-34); Mean Corpuscular Hgb Conc 32.3 g/dL (32-36); Mean Platelet Volume 9.3 fL (7.4-10.4); Platelet Count 173 K/uL (130-400); RDW Coefficient of Variation 12.9 % (11.5-14.5); RDW Standard Deviation 47.5 fL (36.4-46.3); Red Blood Count 2.57 M/uL (4.2-5.4); White Blood Count 7.24 K/uL (4.8-10.8)
[2021-02-05 08:39] LABS: Albumin Level 1.9 gm/dl (3.4-5.0); Creatinine Clr Calc Pharmacy 21.2 ml/min; Est GFR (Non-African American) 23.3 ml/min; Phosphorus 2.6 mg/dl (2.5-4.9); Potassium 4.2 mmol/L (3.5-5.1)
[2021-02-05] MEDS: INSULIN ASPART 100 UNITS/ML 3 ML PEN SC SCH ×4 (08:59→20:57)
[2021-02-05] MEDS: CARBIDOPA/LEVODOP 10/100MG TAB PO SCH ×3 (09:01→20:54)
[2021-02-05] MEDS: METOCLOPRAMIDE HCL 10 MG TABLET PO SCH ×4 (09:01→20:54)
[2021-02-05] MEDS: PANCREAZE (LIPASE 10,500U) CAP PO SCH ×3 (09:01→16:14)
[2021-02-05] MEDS: CITALOPRAM 20 MG TAB PO SCH (10:09)
[2021-02-05] MEDS: MIDODRINE HCL 2.5 MG TAB PO SCH ×3 (10:10→16:15)
[2021-02-05] MEDS: FOLIC ACID 1 MG TAB PO SCH (10:10)
[2021-02-05] MEDS: HEPARIN SOD 5,000 UNIT/0.5 ML VIAL SQ SCH ×2 (10:10→20:55)
[2021-02-05] MEDS: PANTOprazole 40 MG TAB PO SCH (10:11)
--- NOTE | 2021-02-05 10:22 | Nephrology Progress Note ---
Date of Service February 05, 2021 Assessment & Plan (1) ESRD (end stage renal disease): (2) AV fistula occlusion: (3) Anemia due to chronic kidney disease: (4) COVID-19: Plan: ESRD on HD MWF, admitted with nonfunctioning AV fistula and missed dialysis. Last dialysis was last Wednesday. Currently volume overloaded with elevated blood pressure. Electrolyte acceptable. Doppler of AV fistula showed clotted AV fistula. had temporary dialysis catheter on 02/04/2021 as versus vascular surgery could not take had to or due to new diagnosis of COVID. will have to wait for AV fistula intervention/ tunnel catheter until she is of COVID isolation. Currently blood pressure, electrolyte, volume status acceptable. Although she is requiring nasal cannula oxygen as she desaturates with activity or minimum movement. -- No indication for dialysis today, will continue to keep her on Wednesday, Wednesday, Wednesday schedule and plan for next dialysis Wednesday however will reassess tomorrow for any need for dialysis. -- Epogen 17800 units with HD Given on 02/04/2021 -- continued Nephrocaps and renal diet -- dose medications for GFR less than 10 -- Avoid IV fluid Will follow Admission and Anticipated Discharge Date Admission Date: February 03, 2021 Christophe Stallworth was seen in her room this morning. She denies any shortness of breath, chest pain, pain at temporary dialysis catheter side. Had left IJ temporary dialysis catheter yesterday and had dialysis with minimum UF. blood pressure, electrolyte, volume status acceptable. Review of Systems Review of Systems: Detailed review of system was otherwise unremarkable except mentioned in HPI Physical Exam Constitutional: + ill appearing; no acute distress Respiratory: normal respiratory effort; no respiratory distress Auscultation: + diminished lung sounds; no crackles and no wheezes Cardiovascular: RRR, no murmur, no edema Neurologic: moves all extremities and awake; not confused Psychiatric: A+Ox3, euthymic affect Results & Data ([facility]) Vital Signs (Past 12 Hours) Vital Signs Temp Pulse Pulse Resp BP Pulse Ox 02/05/21 08:09 86 02/05/21 06:33 98 02/05/21 04:06 36.8 C 96 H 20 132/55 L 97 02/04/21 22:59 37.0 C 95 H 20 135/42 L 95 02/04/21 22:20 99 H PG Care Time/CCT Total # of Minutes Spent Total Time Spent with Patient: Total time spent is greater than 50% in coordination of care (as documented) at patient's floor/unit and/or counseling patient: Coding Level of Care Code 33604 Subseq Hosp Care Lvl 3 Diagnoses ESRD (end stage renal disease) N18.6 AV fistula occlusion T82.898A Encounter type: initial encounter Anemia due to chronic kidney disease N18.9; D63.1 COVID-19 U07.1 (1) AV fistula occlusion Encounter type: initial encounter Qualified Code(s): T82.898A - Other specified complication of vascular prosthetic devices, implants and grafts, initial encounter
--- NOTE | 2021-02-05 15:41 | Electrocardiogram Report ---
Test Reason : Blood Pressure : / mmHG Vent. Rate : 107 BPM Atrial Rate : 107 BPM P-R Int : 120 ms QRS Dur : 068 ms QT Int : 340 ms P-R-T Axes : 041 -11 012 degrees QTc Int : 453 ms Sinus tachycardia Moderate voltage criteria for LVH, may be normal variant Borderline ECG No previous ECGs available Confirmed by Selvin Cedillo ([id number]) on 02/05/2021 3:40:20 PM Referred By: Phan Heartdhruv Confirmed By:Selvin Cedillo
--- NOTE | 2021-02-05 20:39 | Hospitalist Progress Note ---
Date of Service February 05, 2021 Assessment & Plan (1) AV fistula occlusion: Plan: AVF Duplex on admission showed occlusion. Likely occluded since HD session on Wednesday, 01/31. - Vascular surgery consulted -> Discussed with Demetria Esparza. - Continue Plavix - S/P Temporary hemodialysis catheter ON 02/04 Patient had dialysis on 02/04 Patient is feeling better. May have dialysis on or wednesday. Now on 2 liters nasal cannula. (2) ESRD (end stage renal disease): Plan: Per patient, she follows with [facility] Nephrology in [place]. Only gets HD on Wednesday and Fridays and continues to make urine. - CXR indicated volume overload - Discussed with nephrology -> Give dose of Lasix and will plan for HD once access established (likely tomorrow). - Continue midodrine (3) COVID-19: Plan: Reports being diagnosed ~01/21/2021 with no symptoms at the time (routine SNF testing). A few days later, developed cough which has persisted. Otherwise, no symptoms. - Hold dexamethasone at this time. Unclear to me if her symptoms are related to volume overload vs. Covid - Monitor O2 sats -> Presently only requiring 2L NC. If her O2 worsens despite diuresis and improvement in volume status, would start steroids. - Continue isolation precautions (4) Diabetes: Plan: No known A1c. Does not know her regimen at [facility]. - Long-acting dropped to 15 units HS (from either 20 units, 25 units, or 45 units; it is unclear and patient doesn't know). - Sliding scale insulin - Ordered A1c for AM (5) Parkinson disease: Plan: Presumed diagnosis. - Continue Sinemet (6) GERD (gastroesophageal reflux disease): Plan: - Continue PPI (7) DVT prophylaxis: Plan: Heparin 5000 units SQ Q12h Admission and Anticipated Discharge Date Admission Date: February 03, 2021 Subjective Patient reports breathing better. She has no new complaints. Review of Systems Review of Systems: All systems reviewed & are unremarkable except as noted in HPI & below Physical Exam Physical Exam: Constitutional: WD/WN, vitals as above Eyes: EOM intact bilaterally; no conjunctival abnormality ENMT: external ear and nose normal, oropharynx normal Neck: trachea midline, no thyromegaly normal visual inspection Respiratory: normal respiratory effort, lungs clear to auscultation no respiratory distress Cardiovascular: RRR, no murmur, no edema Extremities: + AV fistula (No bruit) Gastrointestinal (Abdomen): Inspection/Auscultation: abdomen normal to inspection; abdomen not distended Musculoskeletal: no cyanosis or clubbing, extremities motor strength 5/5 Skin: no rashes, warm and dry Neurologic: moves all extremities and awake Psychiatric: Orientation: alert, oriented to person and cooperative Results & Data Results & Data ([facility]) Vital Signs (Past 12 Hours) Vital Signs Temp Pulse Pulse Resp BP Pulse Ox Pulse Ox 02/05/21 19:59 37.0 C 75 17 147/62 H 99 02/05/21 15:58 36.9 C 96 H 18 137/56 L 97 02/05/21 15:46 81 02/05/21 12:16 36.9 C 101 H 24 138/63 93 02/05/21 10:49 91 Pulse Ox Pulse Ox 02/05/21 19:59 02/05/21 15:58 02/05/21 15:46 02/05/21 12:16 02/05/21 10:49 90 82 L PG Care Time/CCT Total # of Minutes Spent Total Time Spent with Patient: Total time spent is greater than 50% in coordination of care (as documented) at patient's floor/unit and/or counseling patient: Coding Level of Care Code 00006 Subseq Hosp Care Lvl 2 Diagnoses AV fistula occlusion T82.898A Encounter type: initial encounter ESRD (end stage renal disease) N18.6 COVID-19 U07.1 Diabetes E11.9 Parkinson disease G20 GERD (gastroesophageal reflux disease) K21.9 DVT prophylaxis Z29.9 Time Spent (min) 25 (1) AV fistula occlusion Encounter type: initial encounter Qualified Code(s): T82.898A - Other specified complication of vascular prosthetic devices, implants and grafts, initial encounter
[2021-02-05] MEDS: ATORVASTATIN 20 MG TAB PO SCH (20:54)
[2021-02-05] MEDS: INSULIN GLARGINE SOLOSTAR 100 UNITS/ML 3 ML PEN SQ SCH (20:55)
[2021-02-06 07:02] LABS: Albumin Level 1.9 gm/dl (3.4-5.0); BUN Creatinine Ratio 10.7 (10-20); Calcium 8.6 mg/dl (8.5-10.1); Creatinine Clr Calc Pharmacy 16.3 ml/min; Est GFR (African American) 19.7 ml/min; Phosphorus 2.6 mg/dl (2.5-4.9); Potassium 4.2 mmol/L (3.5-5.1)
[2021-02-06] MEDS: CARBIDOPA/LEVODOP 10/100MG TAB PO SCH ×3 (08:09→20:40)
[2021-02-06] MEDS: METOCLOPRAMIDE HCL 10 MG TABLET PO SCH ×4 (08:09→20:40)
[2021-02-06] MEDS: CITALOPRAM 20 MG TAB PO SCH (08:09)
[2021-02-06] MEDS: PANTOprazole 40 MG TAB PO SCH (08:09)
[2021-02-06] MEDS: FOLIC ACID 1 MG TAB PO SCH (08:09)
[2021-02-06] MEDS: PANCREAZE (LIPASE 10,500U) CAP PO SCH ×3 (08:10→17:38)
[2021-02-06] MEDS: HEPARIN SOD 5,000 UNIT/0.5 ML VIAL SQ SCH ×2 (08:10→20:40)
[2021-02-06] MEDS: INSULIN ASPART 100 UNITS/ML 3 ML PEN SC SCH ×4 (08:58→20:45)
[2021-02-06] MEDS: MIDODRINE HCL 2.5 MG TAB PO SCH ×3 (08:59→17:39)
--- NOTE | 2021-02-06 10:37 | Nephrology Progress Note ---
Date of Service February 06, 2021 Assessment & Plan (1) ESRD (end stage renal disease): (2) AV fistula occlusion: (3) Anemia due to chronic kidney disease: (4) COVID-19: Plan: ESRD on HD MWF, admitted with nonfunctioning AV fistula and missed dialysis. Last dialysis was last Wednesday. Currently volume overloaded with elevated blood pressure. Electrolyte acceptable. Doppler of AV fistula showed clotted AV fistula. had temporary dialysis catheter on 02/04/2021 as versus vascular surgery could not take had to or due to new diagnosis of COVID. will have to wait for AV fistula intervention/ tunnel catheter until she is of COVID isolation. Currently blood pressure, electrolyte, acceptable. Has been having decent urine output with net negative. -- No indication for dialysis today, will continue to keep her on Wednesday, Wednesday, Wednesday schedule and plan for Dialysis tomorrow. -- Epogen 66386 units with HD Given on 02/04/2021 -- continued Nephrocaps and renal diet -- dose medications for GFR less than 10 -- Avoid IV fluid Will follow Admission and Anticipated Discharge Date Admission Date: February 03, 2021 Subjective Federica has been overall doing well, blood pressure, electrolyte acceptable. She has been having decent urine output with net negative more than 1 L. Physical Exam Physical Exam: direct physical exam was not done today because of COVID isolation status. Results & Data ([facility]) Vital Signs (Past 12 Hours) Vital Signs Temp Pulse Resp BP Pulse Ox 02/06/21 07:33 36.9 C 103 H 20 156/73 H 97 02/06/21 03:30 36.9 C 83 18 131/52 L 98 02/05/21 22:42 37.1 C 96 H 20 150/82 H 92 PG Care Time/CCT Total # of Minutes Spent Total Time Spent with Patient: Total time spent is greater than 50% in coordination of care (as documented) at patient's floor/unit and/or counseling patient: Coding Level of Care Code 42635 Subseq Hosp Care Lvl 2 Diagnoses ESRD (end stage renal disease) N18.6 AV fistula occlusion T82.898A Encounter type: initial encounter Anemia due to chronic kidney disease N18.9; D63.1 COVID-19 U07.1 (1) AV fistula occlusion Encounter type: initial encounter Qualified Code(s): T82.898A - Other specified complication of vascular prosthetic devices, implants and grafts, initial encounter
[2021-02-06] MEDS: ATORVASTATIN 20 MG TAB PO SCH (20:40)
[2021-02-06] MEDS: INSULIN GLARGINE SOLOSTAR 100 UNITS/ML 3 ML PEN SQ SCH (20:44)
[2021-02-06] MEDS: hydrOXYzine HCl 10 MG TAB PO PRN (20:50)
--- NOTE | 2021-02-06 22:09 | Hospitalist Progress Note ---
Date of Service February 06, 2021 Assessment & Plan (1) AV fistula occlusion: Plan: AVF Duplex on admission showed occlusion. Likely occluded since HD session on Wednesday, 01/31. - Vascular surgery consulted -> Discussed with Demetria Esparza. - Continue Plavix - S/P Temporary hemodialysis catheter ON 02/04 Patient had dialysis on 02/04 Patient is feeling better. May have dialysis on or wednesday. Will transition to room air. May have dialysis tomorrow. (2) ESRD (end stage renal disease): Plan: Per patient, she follows with [facility] Nephrology in [place]. Only gets HD on Wednesday and Fridays and continues to make urine. - CXR indicated volume overload - Discussed with nephrology -> Give dose of Lasix and will plan for HD once access established (likely tomorrow). - Continue midodrine (3) COVID-19: Plan: Reports being diagnosed ~01/21/2021 with no symptoms at the time (routine SNF testing). A few days later, developed cough which has persisted. Otherwise, no symptoms. - Hold dexamethasone at this time. Unclear to me if her symptoms are related to volume overload vs. Covid - Monitor O2 sats -> Presently only requiring 2L NC. If her O2 worsens despite diuresis and improvement in volume status, would start steroids. - Continue isolation precautions (4) Diabetes: Plan: No known A1c. Does not know her regimen at [facility]. - Long-acting dropped to 15 units HS (from either 20 units, 25 units, or 45 units; it is unclear and patient doesn't know). - Sliding scale insulin - Ordered A1c for AM (5) Parkinson disease: Plan: Presumed diagnosis. - Continue Sinemet (6) GERD (gastroesophageal reflux disease): Plan: - Continue PPI (7) DVT prophylaxis: Plan: Heparin 5000 units SQ Q12h Admission and Anticipated Discharge Date Admission Date: February 03, 2021 Subjective Patient reports feeling better. She has no new complaints. Review of Systems Review of Systems: All systems reviewed & are unremarkable except as noted in HPI & below Physical Exam Physical Exam: Constitutional: WD/WN, vitals as above Eyes: EOM intact bilaterally; no conjunctival abnormality ENMT: external ear and nose normal, oropharynx normal Neck: trachea midline, no thyromegaly normal visual inspection Respiratory: normal respiratory effort, lungs clear to auscultation no respiratory distress Cardiovascular: RRR, no murmur, no edema Extremities: + AV fistula (No bruit) Gastrointestinal (Abdomen): Inspection/Auscultation: abdomen normal to inspection; abdomen not distended Musculoskeletal: no cyanosis or clubbing, extremities motor strength 5/5 Skin: no rashes, warm and dry Neurologic: moves all extremities and awake Psychiatric: Orientation: alert, oriented to person and cooperative Results & Data Results & Data ([facility]) Vital Signs (Past 12 Hours) Vital Signs Temp Pulse Resp BP Pulse Ox 02/06/21 19:44 37.0 C 101 H 18 143/68 H 95 02/06/21 15:46 36.6 C 98 H 18 122/60 93 02/06/21 11:22 36.9 C 101 H 19 122/56 L 96 PG Care Time/CCT Total # of Minutes Spent Total Time Spent with Patient: Total time spent is greater than 50% in coordination of care (as documented) at patient's floor/unit and/or counseling patient: Coding Level of Care Code 78019 Subseq Hosp Care Lvl 2 Diagnoses AV fistula occlusion T82.898A Encounter type: initial encounter ESRD (end stage renal disease) N18.6 COVID-19 U07.1 Diabetes E11.9 Parkinson disease G20 GERD (gastroesophageal reflux disease) K21.9 DVT prophylaxis Z29.9 Time Spent (min) 25 (1) AV fistula occlusion Encounter type: initial encounter Qualified Code(s): T82.898A - Other specified complication of vascular prosthetic devices, implants and grafts, initial encounter
[2021-02-07 07:12] LABS: Albumin Level 2.1 gm/dl (3.4-5.0); BUN Creatinine Ratio 11.8 (10-20); Calcium 8.7 mg/dl (8.5-10.1); Creatinine Clr Calc Pharmacy 13.1 ml/min; Est GFR (African American) 15.1 ml/min; Potassium 4.3 mmol/L (3.5-5.1)
[2021-02-07] MEDS ORDERED: EPOETIN ALFA 10,000 UNITS/ML VIAL IV STA (08:17)
[2021-02-07] MEDS: MIDODRINE HCL 2.5 MG TAB PO SCH ×3 (08:34→17:47)
[2021-02-07] MEDS: PANCREAZE (LIPASE 10,500U) CAP PO SCH ×3 (08:35→17:45)
[2021-02-07] MEDS: CARBIDOPA/LEVODOP 10/100MG TAB PO SCH ×3 (08:35→20:26)
[2021-02-07] MEDS: CITALOPRAM 20 MG TAB PO SCH (08:35)
[2021-02-07] MEDS: FOLIC ACID 1 MG TAB PO SCH (08:35)
[2021-02-07] MEDS: METOCLOPRAMIDE HCL 10 MG TABLET PO SCH ×4 (08:35→20:26)
[2021-02-07] MEDS: HEPARIN SOD 5,000 UNIT/0.5 ML VIAL SQ SCH ×2 (08:36→20:27)
[2021-02-07] MEDS: PANTOprazole 40 MG TAB PO SCH (08:37)
[2021-02-07] MEDS: ACETAMINOPHEN 325 MG TAB PO PRN ×2 (08:40→20:34)
[2021-02-07] MEDS: INSULIN ASPART 100 UNITS/ML 3 ML PEN SC SCH ×4 (08:43→20:41)
[2021-02-07] MEDS ORDERED: ALTEPLASE, RECOMBINANT 1 MG/ML 2ML VIAL INSTIL ONE ×2 (09:55→10:15)
[2021-02-07] MEDS ORDERED: Nursing to Pharmacy Communication SCH (10:15)
--- NOTE | 2021-02-07 10:18 | Nephrology Progress Note ---
Date of Service February 07, 2021 Assessment & Plan (1) ESRD (end stage renal disease): (2) AV fistula occlusion: (3) Anemia due to chronic kidney disease: (4) COVID-19: Plan: ESRD on HD MWF, admitted with nonfunctioning AV fistula and missed dialysis. Doppler of AV fistula showed clotted AV fistula. on admission she was diagnosed with COVID although she was asymptomatic. Had temporary dialysis catheter on 02/04/2021 as versus vascular surgery could not take had to or due to new diagnosis of COVID. Will have to wait for AV fistula intervention/ tunnel catheter until she is off of COVID isolation. Currently blood pressure, electrolyte, acceptable. Has been having decent urine output with net negative. -- dialysis today as her regular schedule. -- Epogen 58030 units with HD given on 02/04/2021 -- continued Nephrocaps and renal diet -- dose medications for GFR less than 10 -- Avoid IV fluid Will follow Admission and Anticipated Discharge Date Admission Date: February 03, 2021 Subjective Federica has been overall doing well, blood pressure, electrolyte acceptable. She has been having decent urine output with net negative more than 1 L. Due for HD today. Results & Data ([facility]) Vital Signs (Past 12 Hours) Vital Signs Temp Pulse Pulse Pulse Resp BP Pulse Ox 02/07/21 07:10 36.8 C 90 19 161/73 H 92 02/07/21 03:39 36.8 C 92 H 22 136/73 91 02/06/21 23:40 98 H 02/06/21 23:09 37.0 C 98 H 17 132/91 94 PG Care Time/CCT Total # of Minutes Spent Total Time Spent with Patient: Total time spent is greater than 50% in coordination of care (as documented) at patient's floor/unit and/or counseling patient: Coding Level of Care Code 45927 Subseq Hosp Care Lvl 2 Diagnoses ESRD (end stage renal disease) N18.6 AV fistula occlusion T82.898A Encounter type: initial encounter Anemia due to chronic kidney disease N18.9; D63.1 COVID-19 U07.1 (1) AV fistula occlusion Encounter type: initial encounter Qualified Code(s): T82.898A - Other specified complication of vascular prosthetic devices, implants and grafts, initial encounter
--- NOTE | 2021-02-07 15:03 | Communication Note ---
Date of Service: February 07, 2021 Notified by nephrology that catheter not functioning properly Dr. Whiting is unavailable to place permacath until Wednesday Patient will be cleared from Covid precautions by 7-8 AM tomorrow Discussed with general surgery who will manipulate catheter and if unable to get functioning would consider placement of temporary catheter to facilitate dialysis. Dialysis team notified After discussion with nephrology patient may be able to be bridged until Wednesday we will be available for catheter placement should she need dialysis prior to PermCath placement on Wednesday. Coding Level of Care Code None
[2021-02-07] MEDS: hydrOXYzine HCl 10 MG TAB PO PRN (20:26)
[2021-02-07] MEDS: ATORVASTATIN 20 MG TAB PO SCH (20:26)
[2021-02-07] MEDS: INSULIN GLARGINE SOLOSTAR 100 UNITS/ML 3 ML PEN SQ SCH (20:27)
--- NOTE | 2021-02-07 21:31 | Hospitalist Progress Note ---
Date of Service February 07, 2021 Assessment & Plan (1) AV fistula occlusion: Plan: AVF Duplex on admission showed occlusion. Likely occluded since HD session on Wednesday, 01/31. - Vascular surgery consulted -> Discussed with Demetria Esparza. - Continue Plavix - S/P Temporary hemodialysis catheter ON 02/04 Patient had dialysis on 02/04, and 02/07. Patient is feeling better. May will remain on MWF Will transition to room air. Dr. Sandhu was notified by nephrology that catheter not functioning properly Dr. Whiting is unavailable to place permacath until Wednesday Patient will be cleared from Covid precautions by 7-8 AM tomorrow Discussed with general surgery who will manipulate catheter and if unable to get functioning would consider placement of temporary catheter to facilitate dialysis. Dialysis team notified (2) ESRD (end stage renal disease): Plan: Per patient, she follows with [facility] Nephrology in [place]. Only gets HD on Wednesday and Fridays and continues to make urine. - CXR indicated volume overload - Discussed with nephrology -> Give dose of Lasix and will plan for HD once access established (likely tomorrow). - Continue midodrine (3) COVID-19: Plan: Reports being diagnosed ~01/21/2021 with no symptoms at the time (routine SNF testing). A few days later, developed cough which has persisted. Otherwise, no symptoms. - Hold dexamethasone at this time. Unclear to me if her symptoms are related to volume overload vs. Covid - Monitor O2 sats -> Presently only requiring 2L NC. If her O2 worsens despite diuresis and improvement in volume status, would start steroids. - Continue isolation precautions (4) Diabetes: Plan: No known A1c. Does not know her regimen at [facility]. - Long-acting dropped to 15 units HS (from either 20 units, 25 units, or 45 units; it is unclear and patient doesn't know). - Sliding scale insulin (5) Parkinson disease: Plan: Presumed diagnosis. - Continue Sinemet (6) GERD (gastroesophageal reflux disease): Plan: - Continue PPI (7) DVT prophylaxis: Plan: Heparin 5000 units SQ Q12h Admission and Anticipated Discharge Date Admission Date: February 03, 2021 Subjective 70 yo female reports feeling well. She has no new complaints. Review of Systems Review of Systems: All systems reviewed & are unremarkable except as noted in HPI & below Physical Exam Physical Exam: Constitutional: WD/WN, vitals as above Eyes: EOM intact bilaterally; no conjunctival abnormality ENMT: external ear and nose normal, oropharynx normal Neck: trachea midline, no thyromegaly normal visual inspection Respiratory: normal respiratory effort, lungs clear to auscultation no respiratory distress Cardiovascular: RRR, no murmur, no edema Extremities: + AV fistula (No bruit) Gastrointestinal (Abdomen): Inspection/Auscultation: abdomen normal to inspection; abdomen not distended Musculoskeletal: no cyanosis or clubbing, extremities motor strength 5/5 Skin: no rashes, warm and dry Neurologic: moves all extremities and awake Psychiatric: Orientation: alert, oriented to person and cooperative Results & Data Results & Data ([facility]) Vital Signs (Past 12 Hours) Vital Signs Temp Pulse Pulse Resp BP Pulse Ox 02/07/21 18:58 36.5 C 94 H 18 125/52 L 95 02/07/21 16:22 90 02/07/21 15:46 36.5 C 89 19 117/49 L 94 02/07/21 11:24 36.9 C 99 H 18 130/62 95 PG Care Time/CCT Total # of Minutes Spent Total Time Spent with Patient: Total time spent is greater than 50% in coordination of care (as documented) at patient's floor/unit and/or counseling patient: Coding Level of Care Code 90860 Subseq Hosp Care Lvl 2 Diagnoses AV fistula occlusion T82.898A Encounter type: initial encounter ESRD (end stage renal disease) N18.6 COVID-19 U07.1 Diabetes E11.9 Parkinson disease G20 GERD (gastroesophageal reflux disease) K21.9 DVT prophylaxis Z29.9 Time Spent (min) 25 (1) AV fistula occlusion Encounter type: initial encounter Qualified Code(s): T82.898A - Other specified complication of vascular prosthetic devices, implants and grafts, initial encounter
[2021-02-08 06:52] LABS: Hematocrit (blood only) 23.1 % (37-47); Hemoglobin 7.6 g/dL (12.0-16.0); Mean Corpuscular Hemoglobin 32.8 pg (25-34); Mean Corpuscular Hgb Conc 32.9 g/dL (32-36); Mean Corpuscular Volume 99.6 fL (80-100); Mean Platelet Volume 9.4 fL (7.4-10.4); Platelet Count 209 K/uL (130-400); Red Blood Count 2.32 M/uL (4.2-5.4); White Blood Count 7.18 K/uL (4.8-10.8)
[2021-02-08 07:07] LABS: BUN Creatinine Ratio 17.6 (10-20); Calcium 9.1 mg/dl (8.5-10.1); Creatinine Clr Calc Pharmacy 12.4 ml/min; Est GFR (African American) 14.1 ml/min; Est GFR (Non-African American) 12.2 ml/min; Potassium 3.9 mmol/L (3.5-5.1)
[2021-02-08 07:08] LABS: Phosphorus 2.5 mg/dl (2.5-4.9)
[2021-02-08] MEDS: MIDODRINE HCL 2.5 MG TAB PO SCH ×3 (08:35→17:11)
[2021-02-08] MEDS: METOCLOPRAMIDE HCL 10 MG TABLET PO SCH ×4 (08:35→19:49)
[2021-02-08] MEDS: CARBIDOPA/LEVODOP 10/100MG TAB PO SCH ×3 (08:35→19:48)
[2021-02-08] MEDS: CITALOPRAM 20 MG TAB PO SCH (08:36)
[2021-02-08] MEDS: PANTOprazole 40 MG TAB PO SCH (08:36)
[2021-02-08] MEDS: FOLIC ACID 1 MG TAB PO SCH (08:36)
[2021-02-08] MEDS: PANCREAZE (LIPASE 10,500U) CAP PO SCH ×3 (08:36→17:10)
[2021-02-08] MEDS: HEPARIN SOD 5,000 UNIT/0.5 ML VIAL SQ SCH ×2 (08:37→19:48)
[2021-02-08] MEDS: BUMETANIDE 1 MG TAB PO SCH (08:40)
[2021-02-08] MEDS: INSULIN ASPART 100 UNITS/ML 3 ML PEN SC SCH ×4 (08:47→20:47)
[2021-02-08 09:10] LABS: Iron 62 mcg/dl (35-150); Transferrin 147 mg/dl (200-360); Transferrin Percent Saturation 30 % (15-50)
--- NOTE | 2021-02-08 10:58 | Nephrology Progress Note ---
Date of Service February 08, 2021 Assessment & Plan (1) ESRD (end stage renal disease): Plan: * Last HD 02/04/21 * Temporary HD catheter is nonfunctional * Patient is nonoliguric and remains on oral Bumex therapy * 1375 cc UO over last 24 hours. Patient is oxygenating well on RA. Electrolyte balance remains acceptable. No acute indication for HD today. Will monitor over weekend and plan for Vascular Surgery evaluation and THC insertion on Wednesday. POC discussed w/ hospitalist and ICU services. Patient will be made NPO status on ME Wednesday. Order for routine Vascular Surgery consultation placed in EMR Wednesday (2) AV fistula occlusion: Plan: * Will await Vascular Surgery evaluation. 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 Correlation with chest CT recommended - defer to primary service Admission and Anticipated Discharge Date Admission Date: February 03, 2021 Subjective Ms. Herrera is on respiratory isolation due to COVID-19 respiratory infection. Plan of care was discussed w/ the hospitalist service this morning. Review of Systems Review of Systems: Unobtainable due to respiratory isolation Physical Exam Physical Exam: PE withheld due to respiratory isolation Results & Data ([facility]) Vital Signs (Past 12 Hours) Vital Signs Temp Pulse Pulse Pulse Resp BP Pulse Ox 02/08/21 08:00 92 H 02/08/21 07:30 36.6 C 107 H 18 124/67 93 02/08/21 03:28 36.5 C 90 23 121/52 L 95 02/07/21 23:41 36.8 C 82 19 134/63 96 02/07/21 23:15 73 Laboratory Results Laboratory Tests 02/08/21 02/08/21 05:42 05:42 WBC 7.18 Hgb 7.6 L Hct 23.1 L Plt Count 209 Sodium 139 Potassium 3.9 Chloride 104 Carbon Dioxide 30 BUN 62 H D Creatinine 3.54 H Glucose 62 L Calcium 9.1 Phosphorus 2.5 Albumin 2.0 L PG Care Time/CCT Total # of Minutes Spent Total Time Spent with Patient: Total time spent is greater than 50% in coordination of care (as documented) at patient's floor/unit and/or counseling patient: Coding Level of Care Code 89814 Subseq Hosp Care Lvl 3 Diagnoses ESRD (end stage renal disease) N18.6 AV fistula occlusion T82.898A Encounter type: initial encounter Anemia due to chronic kidney disease N18.9; D63.1 COVID-19 U07.1 Hypotension arterial I95.9 (1) AV fistula occlusion Encounter type: initial encounter Qualified Code(s): T82.898A - Other specified complication of vascular prosthetic devices, implants and grafts, initial encounter
[2021-02-08] MEDS: ATORVASTATIN 20 MG TAB PO SCH (19:48)
[2021-02-08] MEDS: INSULIN GLARGINE SOLOSTAR 100 UNITS/ML 3 ML PEN SQ SCH (20:47)
--- NOTE | 2021-02-08 22:04 | Hospitalist Progress Note ---
Date of Service February 08, 2021 Assessment & Plan (1) AV fistula occlusion: Plan: AVF Duplex on admission showed occlusion. Likely occluded since HD session on Wednesday, 01/31. - Vascular surgery consulted -> Discussed with Demetria Esparza. - Continue Plavix - S/P Temporary hemodialysis catheter ON 02/04 Patient had dialysis on 02/04, and 02/07. Patient is feeling better. May will remain on MWF Will transition to room air. Dr. Sandhu was notified by nephrology that catheter not functioning properly Dr. Whiting is unavailable to place permacath until Wednesday Patient will be cleared from Covid precautions today. Discussed with general surgery who will manipulate catheter and if unable to get functioning would consider placement of temporary catheter to facilitate dialysis. Dialysis team notified (2) ESRD (end stage renal disease): Plan: Per patient, she follows with [facility] Nephrology in [place]. Only gets HD on Wednesday and Fridays and continues to make urine. - CXR indicated volume overload - Discussed with nephrology -> Give dose of Lasix and will plan for HD once access established (likely tomorrow). - Continue midodrine (3) COVID-19: Plan: Reports being diagnosed ~01/21/2021 with no symptoms at the time (routine SNF testing). A few days later, developed cough which has persisted. Otherwise, no symptoms. - Hold dexamethasone at this time. Unclear to me if her symptoms are related to volume overload vs. Covid - Monitor O2 sats -> Presently only requiring 2L NC. If her O2 worsens despite diuresis and improvement in volume status, would start steroids. - Continue isolation precautions (4) Diabetes: Plan: No known A1c. [facility] - Long-acting dropped to 15 units HS (from either 20 units, 25 units, or 45 units; it is unclear and patient doesn't know). - Sliding scale insulin (5) Parkinson disease: Plan: Presumed diagnosis. - Continue Sinemet (6) GERD (gastroesophageal reflux disease): Plan: - Continue PPI (7) DVT prophylaxis: Plan: Heparin 5000 units SQ Q12h Admission and Anticipated Discharge Date Admission Date: February 03, 2021 Subjective Patient is a 70 yo female who has no new complaints. Review of Systems Review of Systems: All systems reviewed & are unremarkable except as noted in HPI & below Physical Exam Physical Exam: Constitutional: WD/WN, vitals as above Eyes: EOM intact bilaterally; no conjunctival abnormality ENMT: external ear and nose normal, oropharynx normal Neck: trachea midline, no thyromegaly normal visual inspection Respiratory: normal respiratory effort, lungs clear to auscultation no respiratory distress Cardiovascular: RRR, no murmur, no edema Extremities: + AV fistula (No bruit) Gastrointestinal (Abdomen): Inspection/Auscultation: abdomen normal to inspection; abdomen not distended Musculoskeletal: no cyanosis or clubbing, extremities motor strength 5/5 Skin: no rashes, warm and dry Neurologic: moves all extremities and awake Psychiatric: Orientation: alert, oriented to person and cooperative Results & Data Results & Data ([facility]) Vital Signs (Past 12 Hours) Vital Signs Temp Pulse Pulse Resp BP Pulse Ox 02/08/21 19:37 36.8 C 97 H 18 131/73 95 02/08/21 16:00 36.6 C 109 H 20 115/60 95 02/08/21 11:37 36.5 C 114 H 18 123/42 L 94 PG Care Time/CCT Total # of Minutes Spent Total Time Spent with Patient: Total time spent is greater than 50% in coordination of care (as documented) at patient's floor/unit and/or counseling patient: Coding Level of Care Code 78869 Subseq Hosp Care Lvl 2 Diagnoses AV fistula occlusion T82.898A Encounter type: initial encounter ESRD (end stage renal disease) N18.6 COVID-19 U07.1 Diabetes E11.9 Parkinson disease G20 GERD (gastroesophageal reflux disease) K21.9 DVT prophylaxis Z29.9 Time Spent (min) 25 (1) AV fistula occlusion Encounter type: initial encounter Qualified Code(s): T82.898A - Other specified complication of vascular prosthetic devices, implants and grafts, initial encounter
[2021-02-09] MEDS: ACETAMINOPHEN 325 MG TAB PO PRN ×2 (07:48→20:13)
[2021-02-09] MEDS: METOCLOPRAMIDE HCL 10 MG TABLET PO SCH ×4 (07:49→20:14)
[2021-02-09] MEDS: CITALOPRAM 20 MG TAB PO SCH (07:49)
[2021-02-09] MEDS: PANTOprazole 40 MG TAB PO SCH (07:50)
[2021-02-09] MEDS: BUMETANIDE 1 MG TAB PO SCH (07:50)
[2021-02-09] MEDS: PANCREAZE (LIPASE 10,500U) CAP PO SCH ×3 (07:50→17:04)
[2021-02-09] MEDS: FOLIC ACID 1 MG TAB PO SCH (07:51)
[2021-02-09] MEDS: MIDODRINE HCL 2.5 MG TAB PO SCH ×3 (07:51→17:03)
[2021-02-09] MEDS: CARBIDOPA/LEVODOP 10/100MG TAB PO SCH ×3 (07:51→20:14)
[2021-02-09] MEDS: HEPARIN SOD 5,000 UNIT/0.5 ML VIAL SQ SCH ×2 (07:53→20:14)
[2021-02-09] MEDS: INSULIN ASPART 100 UNITS/ML 3 ML PEN SC SCH ×4 (07:55→20:18)
[2021-02-09 08:10] LABS: Hematocrit (blood only) 27.8 % (37-47); Mean Corpuscular Hemoglobin 32.6 pg (25-34); Mean Corpuscular Hgb Conc 32.4 g/dL (32-36); Mean Corpuscular Volume 100.7 fL (80-100); Mean Platelet Volume 9.5 fL (7.4-10.4); Platelet Count 343 K/uL (130-400); RDW Coefficient of Variation 13.3 % (11.5-14.5); RDW Standard Deviation 48.2 fL (36.4-46.3); Red Blood Count 2.76 M/uL (4.2-5.4); White Blood Count 12.04 K/uL (4.8-10.8)
[2021-02-09 08:16] LABS: BUN Creatinine Ratio 20.3 (10-20); Calcium 9.3 mg/dl (8.5-10.1); Creatinine Clr Calc Pharmacy 12.7 ml/min; Est GFR (African American) 14.5 ml/min; Est GFR (Non-African American) 12.5 ml/min
--- NOTE | 2021-02-09 11:24 | Nephrology Progress Note ---
Date of Service February 09, 2021 Assessment & Plan (1) ESRD (end stage renal disease): Plan: * Last HD 02/04/21 * Temporary HD catheter is nonfunctional * Patient is nonoliguric and remains on oral Bumex therapy * 850 cc UO over last 24 hours. Patient is oxygenating well on RA. Electrolyte balance remains acceptable. No acute indication for HD today. Will monitor over weekend and plan for Vascular Surgery evaluation and THC insertion on Wednesday. POC discussed w/ hospitalist service. Patient will be made NPO status on [place] Wednesday. Order for routine Vascular Surgery consultation placed in EMR Wednesday (2) AV fistula occlusion: Plan: * Will await Vascular Surgery evaluation. 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 Correlation with chest CT recommended. Repeat CXR later that day did not show this lesion - defer further imaging to primary service. Admission and Anticipated Discharge Date Admission Date: February 03, 2021 Subjective Ms. Herrera was evaluated in her hospital room this morning. She denies dyspnea or uremic symptoms. She is agreeable to IJ THC in am Review of Systems Constitutional: + weakness; no fever Eyes: no problem reported Ear, Nose, Mouth, Throat: no problem reported Respiratory: no cough and no dyspnea Cardiovascular: no chest pain and no edema Gastrointestinal: no abdominal pain Genitourinary: no dysuria and no hematuria Musculoskeletal: no back pain Integumentary: no rash Neurologic: no falls and no confusion Physical Exam Constitutional: + ill appearing Eyes: PERRL, conjunctivae normal, anicteric sclerae ENMT: external ear and nose normal, oropharynx normal Neck: trachea midline, no thyromegaly Respiratory: normal respiratory effort, lungs clear to auscultation Cardiovascular: RRR, no murmur, no edema Gastrointestinal (Abdomen): normal bowel sounds, soft, nontender, no hepatosplenomegaly Musculoskeletal: Extremities: no cyanosis Skin: no rashes, warm and dry Neurologic: awake Results & Data ([place]) Vital Signs (Past 12 Hours) Vital Signs Temp Pulse Pulse Resp BP Pulse Ox 02/09/21 11:03 36.8 C 96 H 18 116/68 92 02/09/21 07:32 97 H 02/09/21 07:20 36.8 C 114 H 18 119/70 92 02/09/21 02:29 36.5 C 106 H 16 156/82 H 92 02/09/21 00:42 92 H Laboratory Results Laboratory Tests 02/03/21 02/09/21 02/09/21 11:00 07:22 07:22 WBC 12.04 H Hgb 9.0 L Hct 27.8 L Plt Count 343 D INR 1.0 Sodium 138 Potassium 4.0 Chloride 101 Carbon Dioxide 27 BUN 70 H Creatinine 3.46 H Glucose 181 H PG Care Time/CCT Total # of Minutes Spent Total Time Spent with Patient: Total time spent is greater than 50% in coordination of care (as documented) at patient's floor/unit and/or counseling patient: Coding Level of Care Code 48595 Subseq Hosp Care Lvl 3 Diagnoses ESRD (end stage renal disease) N18.6 AV fistula occlusion T82.898A Encounter type: initial encounter Anemia due to chronic kidney disease N18.9; D63.1 Hypotension arterial I95.9 COVID-19 U07.1 (1) AV fistula occlusion Encounter type: initial encounter Qualified Code(s): T82.898A - Other specified complication of vascular prosthetic devices, implants and grafts, initial encounter
[2021-02-09] MEDS: ATORVASTATIN 20 MG TAB PO SCH (20:13)
[2021-02-09] MEDS: hydrOXYzine HCl 10 MG TAB PO PRN (20:14)
[2021-02-09] MEDS: INSULIN GLARGINE SOLOSTAR 100 UNITS/ML 3 ML PEN SQ SCH (20:18)
--- NOTE | 2021-02-09 20:53 | Hospitalist Progress Note ---
Date of Service February 09, 2021 Assessment & Plan (1) AV fistula occlusion: Plan: AVF Duplex on admission showed occlusion. Likely occluded since HD session on Wednesday, 01/31. - Vascular surgery consulted -> Discussed with Demetria Esparza. - Continue Plavix - S/P Temporary hemodialysis catheter ON 02/04 Patient had dialysis on 02/04, and 02/07. Patient is feeling better. May will remain on MWF Will transition to room air. Dr. Sandhu was notified by nephrology that catheter not functioning properly Dr. Whiting is unavailable to place permacath until Wednesday Patient will be cleared from Covid precautions today. Discussed with general surgery who will manipulate catheter and if unable to get functioning would consider placement of temporary catheter to facilitate dialysis. Dialysis team notified (2) ESRD (end stage renal disease): Plan: Per patient, she follows with [facility] in [place]. Only gets HD on Wednesday and Fridays and continues to make urine. - CXR indicated volume overload - Discussed with nephrology -> Give dose of Lasix and will plan for HD once access established (likely tomorrow). - Continue midodrine (3) COVID-19: Plan: Reports being diagnosed ~01/21/2021 with no symptoms at the time (routine SNF testing). A few days later, developed cough which has persisted. Otherwise, no symptoms. - Hold dexamethasone at this time. Unclear to me if her symptoms are related to volume overload vs. Covid - Monitor O2 sats -> Presently only requiring 2L NC. If her O2 worsens despite diuresis and improvement in volume status, would start steroids. - Continue isolation precautions (4) Diabetes: Plan: No known A1c. Does not know her regimen at [facility] [place]. - Long-acting dropped to 15 units HS (from either 20 units, 25 units, or 45 units; it is unclear and patient doesn't know). - Sliding scale insulin (5) Parkinson disease: Plan: Presumed diagnosis. - Continue Sinemet (6) GERD (gastroesophageal reflux disease): Plan: - Continue PPI (7) DVT prophylaxis: Plan: Heparin 5000 units SQ Q12h Admission and Anticipated Discharge Date Admission Date: February 03, 2021 Subjective Patient resting comfortably. Review of Systems Review of Systems: All systems reviewed & are unremarkable except as noted in HPI & below Physical Exam Physical Exam: Constitutional: WD/WN, vitals as above Eyes: EOM intact bilaterally; no conjunctival abnormality ENMT: external ear and nose normal, oropharynx normal Neck: trachea midline, no thyromegaly normal visual inspection Respiratory: normal respiratory effort, lungs clear to auscultation no respiratory distress Cardiovascular: RRR, no murmur, no edema Extremities: + AV fistula (No bruit) Gastrointestinal (Abdomen): Inspection/Auscultation: abdomen normal to inspection; abdomen not distended Musculoskeletal: no cyanosis or clubbing, extremities motor strength 5/5 Skin: no rashes, warm and dry Neurologic: moves all extremities and awake Psychiatric: Orientation: alert, oriented to person and cooperative Results & Data Results & Data ([facility]) Vital Signs (Past 12 Hours) Vital Signs Temp Pulse Pulse Resp BP Pulse Ox 02/09/21 19:35 36.4 C L 101 H 18 127/52 L 94 02/09/21 16:00 95 H 02/09/21 14:58 36.8 C 92 H 18 110/66 95 02/09/21 11:03 36.8 C 96 H 18 116/68 92 PG Care Time/CCT Total # of Minutes Spent Total Time Spent with Patient: Total time spent is greater than 50% in coordination of care (as documented) at patient's floor/unit and/or counseling patient: Coding Level of Care Code 10215 Subseq Hosp Care Lvl 1 Diagnoses AV fistula occlusion T82.898A Encounter type: initial encounter ESRD (end stage renal disease) N18.6 COVID-19 U07.1 Diabetes E11.9 Parkinson disease G20 GERD (gastroesophageal reflux disease) K21.9 DVT prophylaxis Z29.9 (1) AV fistula occlusion Encounter type: initial encounter Qualified Code(s): T82.898A - Other specified complication of vascular prosthetic devices, implants and grafts, initial encounter
[2021-02-10 07:34] LABS: Hematocrit (blood only) 26.8 % (37-47); Hemoglobin 8.4 g/dL (12.0-16.0); Mean Corpuscular Hemoglobin 31.6 pg (25-34); Mean Corpuscular Hgb Conc 31.3 g/dL (32-36); Mean Corpuscular Volume 100.8 fL (80-100); Mean Platelet Volume 9.4 fL (7.4-10.4); Platelet Count 283 K/uL (130-400); RDW Coefficient of Variation 13.4 % (11.5-14.5); RDW Standard Deviation 48.5 fL (36.4-46.3); Red Blood Count 2.66 M/uL (4.2-5.4); White Blood Count 7.99 K/uL (4.8-10.8)
[2021-02-10 08:08] LABS: BUN Creatinine Ratio 22.4 (10-20); Calcium 8.9 mg/dl (8.5-10.1); Creatinine Clr Calc Pharmacy 12.1 ml/min; Est GFR (African American) 13.7 ml/min; Est GFR (Non-African American) 11.8 ml/min; Potassium 3.8 mmol/L (3.5-5.1)
[2021-02-10] MEDS ORDERED: ceFAZolin 1000MG 1,000 MG/7.5 ML SYR IV SCH (08:10)
[2021-02-10] MEDS: hydrOXYzine HCl 10 MG TAB PO PRN (08:44)
[2021-02-10] MEDS: METOCLOPRAMIDE HCL 10 MG TABLET PO SCH ×4 (08:44→20:19)
[2021-02-10] MEDS: CARBIDOPA/LEVODOP 10/100MG TAB PO SCH ×3 (08:44→20:19)
[2021-02-10] MEDS: MIDODRINE HCL 2.5 MG TAB PO SCH ×3 (08:45→17:47)
[2021-02-10] MEDS: PANCREAZE (LIPASE 10,500U) CAP PO SCH ×3 (08:45→17:47)
[2021-02-10] MEDS: PANTOprazole 40 MG TAB PO SCH (08:45)
[2021-02-10] MEDS: CITALOPRAM 20 MG TAB PO SCH (08:46)
[2021-02-10] MEDS: FOLIC ACID 1 MG TAB PO SCH (08:46)
[2021-02-10] MEDS: INSULIN ASPART 100 UNITS/ML 3 ML PEN SC SCH ×4 (08:47→20:21)
[2021-02-10] MEDS: HEPARIN SOD 5,000 UNIT/0.5 ML VIAL SQ SCH ×2 (08:48→20:19)
--- NOTE | 2021-02-10 09:10 | Consultation ---
Date of Consultation February 10, 2021 Assessment & Plan (1) ESRD (end stage renal disease): Pt discussed with Dr Whiting. L IJ line will need to be removed today after HD in order to possibly place permcath there tomorrow. D/T difficulties payroll and benefits coordinator encountered upon attempting to place temp HD catheter in R IJ, as well as presence of L IK temp line, will obtain venous US of BL IJ's prior to placing permcath in OR tomorrow. US to be done AFTER L IJ removal today. Planning on permcath insertion tomorrow AM. Pt agreeable. History of Present Illness Reason for Consultation: nonfunctioning LUE AVF, need permcath Attending Physician: Kerwin Herrera MD History of Present Illness 70 yo f with hx of DMII, ESRD on HD through LUE AVF, GERD, parkinson's dz, chronic anemia, admitted d/t nonfunctioning LUE AVF and asymptomatic positive COVID, seen in consultation today for HD access. Pt with LUE AVF for appro ximately 1 yr, placed at outside facility. Pt admitted 7 days ago from [facility] for thrombosed AVF. AVF had been thrombosed for up to 5 days prior to this. Pt was not taken to OR for thrombectomy of AVF d/t COVID positive and time passed. temporary HD catheter placed by payroll and benefits coordinator for HD access. Pt now out of isolation for COVID and her temp catheter is not functioning well. Pt denies any complaints at this time. Per staff, pt is lightheaded when upright today. Pt denies WHELAN, chest pain, SOB, abd pain, N/V, rest pain, claudication, fever, other complaints. Allergies Allergy/AdvReac Type Severity Reaction Status Date / Time aspirin Allergy Unknown as Per Unverified 02/03/21 10:59 [facility] ibuprofen Allergy Unknown as Per Unverified 02/03/21 10:59 [facility] Iodinated Contrast Media Allergy Unknown as Per Unverified 02/03/21 10:59 [facility] Home Medications Medication Instructions Recorded Confirmed Type atorvastatin 20 mg tablet 20 mg PO HS 02/03/21 02/03/21 History carbidopa 10 mg-levodopa 100 mg 1 tab PO TID 02/03/21 02/03/21 History tablet citalopram 10 mg tablet 10 mg PO QAM 02/03/21 02/03/21 History cranberry extract 250 mg tablet 125 mg PO BID 02/03/21 02/03/21 History ergocalciferol (vitamin D2) 1,250 1,250 mcg PO Q14D 02/03/21 02/03/21 History mcg (50,000 unit) capsule folic acid 1 mg tablet 1 mg PO QAM 02/03/21 02/03/21 History hydrocodone 5 mg-acetaminophen 325 1 tab PO Q6H PRN 02/03/21 02/03/21 History mg tablet hydroxyzine HCl 10 mg tablet 10 mg PO TID PRN 02/03/21 02/03/21 History insulin glargine 100 unit/mL (3 20 unit SUBCUT HS 02/03/21 02/03/21 History mL) subcutaneous pen (Basaglar KwikPen U-100 Insulin) insulin glargine 100 unit/mL (3 25 unit SUBCUT HS 02/03/21 02/03/21 History mL) subcutaneous pen (Basaglar KwikPen U-100 Insulin) insulin lispro 100 unit/mL 0 unit SUBCUT [facility] 02/03/21 02/03/21 History subcutaneous pen (Humalog KwikPen (U-100) Insulin) lansoprazole 30 mg capsule,delayed 30 mg PO QAM 02/03/21 02/03/21 History release [id number] 2 cap PO TIDM 02/03/21 02/03/21 History 12,000-38,000-60,000 unit capsule,delayed rel (Creon) magnesium oxide 400 mg (241.3 mg 400 mg PO QAM 02/03/21 02/03/21 History magnesium) tablet metoclopramide HCl 10 mg tablet 10 mg PO ACHS 02/03/21 02/03/21 History midodrine 5 mg tablet 5 mg PO TID 02/03/21 02/03/21 History multivitamin 1 tab PO PM 02/03/21 02/03/21 History omega-3 fatty acids 1,000 mg 1,000 mg PO BID 02/03/21 02/03/21 History capsule (Fish Oil Concentrate) permethrin 5 % topical cream 1 applic TOPICAL HS 02/03/21 02/03/21 History Patient History Medical History Anemia due to chronic kidney disease Diabetes ESRD (end stage renal disease) GERD (gastroesophageal reflux disease) Parkinson disease Family History Father Diabetes Social History Smoking Status: Former smoker Second Hand Exposure: No; Hx Alcohol Use: No Hx Substance Use: No Preferred Language: Niuean Communication Ability: Effective Beliefs That Will Affect Care: None Current Living Situation: Personal Care Facility Current Living Situation Comment: [facility] [place] Per patient Feels Safe at Home: Yes Assistive Devices: None Review of Systems Review of Systems: 14 systems reviewed and negative aside from HPI Physical Exam Constitutional: WD/WN, vitals as above + thin, + frail appearing, cooperative and comfortable; not in distress ENMT: Ears: no hearing impairment Neck: trachea midline Respiratory: normal respiratory effort; no respiratory distress Auscultation: lungs clear to auscultation bilaterally and + diminished lung sounds Cardiovascular: Rate/Rhythm: + tachycardic Vessels: posterior tibial pulses present, dorsalis pedis pulses present and radial pulses present; + abnormal peripheral pulses Extremities: normal capillary refill and + AV fistula (slight pulsatility proximally, no thrill/bruit distally); no edema Gastrointestinal (Abdomen): Inspection/Auscultation: abdomen normal to inspection and normal bowel sounds; abdomen not distended Percussion/Palpation: abdomen nontender Musculoskeletal: no cyanosis or clubbing, extremities motor strength 5/5 Skin: no rashes, warm and dry Neurologic: moves all extremities and awake; no focal motor deficits and not confused Psychiatric: Orientation: alert and oriented x 3 Affect: + flat affect Results & Data ([facility]) Vital Signs (Past 12 Hours) Vital Signs Temp Pulse Pulse Resp BP Pulse Ox 02/10/21 07:51 36.6 C 117 H 20 95/48 L 90 02/10/21 07:00 98 H 02/10/21 04:00 36.7 C 98 H 18 112/65 93 02/10/21 00:00 93 H 02/09/21 23:10 36.8 C 98 H 18 133/61 90
[2021-02-10] MEDS: BUMETANIDE 1 MG TAB PO SCH (09:55)
--- NOTE | 2021-02-10 09:58 | Nephrology Progress Note ---
Date of Service February 10, 2021 Assessment & Plan (1) ESRD (end stage renal disease): Plan: * Last HD 02/04/21 * Temporary HD catheter is nonfunctional * Patient is nonoliguric and remains on oral Bumex therapy * 851 cc UO over last 24 hours. Patient is oxygenating well on RA. Electrolyte balance remains acceptable. No acute indication for HD today. Will schedule HD following THC insertion tomorrow (2) AV fistula occlusion: Plan: * Case discussed w/ Vascular Surgery PA this morning. Temporary HD catheter to be removed today and tunneled HD catheter to be placed in am * Patient will likely require new AVF/AVG as outpatient (3) Anemia due to chronic kidney disease: Plan: * Epogen 10,000 units administered 02/07/21 * Iron saturation 30% 02/08 (4) Hypotension arterial: Plan: * On Midodrine 5 mg po TID (5) COVID-19: Plan: * Persistent bibasilar opacities with masslike consolidation of the lateral left midlung containing equivocal central cavitation. Correlation with chest CT recommended. Repeat CXR later that day did not show this lesion - defer further imaging to primary service. Admission and Anticipated Discharge Date Admission Date: February 03, 2021 Subjective Ms. Herrera was evaluated in her hospital room this morning. She c/o weakness but denies fever, angina or dyspnea. Review of Systems Constitutional: + weakness; no fever Eyes: no problem reported Ear, Nose, Mouth, Throat: no problem reported Respiratory: no cough and no dyspnea Cardiovascular: no chest pain and no edema Gastrointestinal: no abdominal pain Genitourinary: no dysuria and no hematuria Musculoskeletal: no back pain Integumentary: no rash Neurologic: no falls and no confusion Physical Exam Constitutional: + ill appearing Eyes: PERRL, conjunctivae normal, anicteric sclerae ENMT: external ear and nose normal, oropharynx normal Neck: trachea midline, no thyromegaly L IJ temporary HD catheter with clean, dry dressing in place Respiratory: normal respiratory effort, lungs clear to auscultation Cardiovascular: RRR, no murmur, no edema Gastrointestinal (Abdomen): normal bowel sounds, soft, nontender, no hepatosplenomegaly Musculoskeletal: Extremities: no cyanosis Skin: no rashes, warm and dry Neurologic: awake Results & Data ([facility]) Vital Signs (Past 12 Hours) Vital Signs Temp Pulse Pulse Resp BP Pulse Ox 02/10/21 07:51 36.6 C 117 H 20 95/48 L 90 02/10/21 07:00 98 H 02/10/21 04:00 36.7 C 98 H 18 112/65 93 02/10/21 00:00 93 H 02/09/21 23:10 36.8 C 98 H 18 133/61 90 Laboratory Results Laboratory Tests 02/03/21 02/10/21 02/10/21 11:00 07:24 07:24 WBC 7.99 Hgb 8.4 L Hct 26.8 L Plt Count 283 INR 1.0 Sodium 138 Potassium 3.8 Chloride 102 Carbon Dioxide 29 BUN 81 H Creatinine 3.63 H Glucose 95 Calcium 8.9 PG Care Time/CCT Total # of Minutes Spent Total Time Spent with Patient: Total time spent is greater than 50% in coordination of care (as documented) at patient's floor/unit and/or counseling patient: Coding Level of Care Code 68191 Subseq Hosp Care Lvl 3 Diagnoses ESRD (end stage renal disease) N18.6 AV fistula occlusion T82.898A Encounter type: initial encounter Anemia due to chronic kidney disease N18.9; D63.1 Hypotension arterial I95.9 COVID-19 U07.1 (1) AV fistula occlusion Encounter type: initial encounter Qualified Code(s): T82.898A - Other specified complication of vascular prosthetic devices, implants and grafts, initial encounter
[2021-02-10] MEDS ORDERED: NORMOSOL-R 250 ML IV ONE (11:23)
[2021-02-10] MEDS ORDERED: hydrOXYzine HCl 10 MG TAB PO STA (11:24)
--- NOTE | 2021-02-10 16:57 | Hospitalist Progress Note ---
Date of Service February 10, 2021 Assessment & Plan (1) AV fistula occlusion: Plan: AVF Duplex on admission showed occlusion. Likely occluded since HD session on Wednesday, 01/31. - Vascular surgery consulted -> Plan for tunneled, Permacath tomorrow. U/s of the bilateral jugular veins ordered today to help plan procedure. (2) ESRD (end stage renal disease): Plan: Per patient, she follows with [facility] in [place]. Only gets HD on Wednesday and Fridays and continues to make urine. - CXR indicated volume overload on admission. - Discussed with nephrology -> Plan for HD after the Permacath is placed tomorrow. - Continue midodrine - Continue Bumex 2 mg PO daily (3) COVID-19: Plan: Reports being diagnosed ~01/21/2021 with no symptoms at the time (routine SNF testing). A few days later, developed cough which has persisted. Otherwise, no symptoms. - Finished isolation precautions on 02/10 (4) Diabetes: Plan: A1c was 6.8% this admission. Does not know her regimen at [facility]. - Long-acting dropped to 15 units HS (from either 20 units, 25 units, or 45 units; it is unclear and patient doesn't know). - Sliding scale insulin -> Blood sugars 100 - 200 in last 24 hours. (5) Parkinson disease: Plan: Presumed diagnosis. - Continue Sinemet (6) GERD (gastroesophageal reflux disease): Plan: - Continue PPI (7) DVT prophylaxis: Plan: Heparin 5000 units SQ Q12h Admission and Anticipated Discharge Date Admission Date: February 03, 2021 Subjective No issues today. Feels tired and wants to be left alone. Reports no fevers/chills, chest pain, shortness of breath, abdominal pain, nausea, or vomiting. Physical Exam Constitutional: WD/WN, vitals as above Eyes: EOM intact bilaterally; no conjunctival abnormality ENMT: external ear and nose normal, oropharynx normal Neck: trachea midline, no thyromegaly normal visual inspection Respiratory: normal respiratory effort, lungs clear to auscultation no respiratory distress Cardiovascular: RRR, no murmur, no edema Extremities: + AV fistula (No bruit) Gastrointestinal (Abdomen): Inspection/Auscultation: abdomen normal to inspection; abdomen not distended Musculoskeletal: no cyanosis or clubbing, extremities motor strength 5/5 Skin: no rashes, warm and dry Neurologic: moves all extremities and awake Psychiatric: Orientation: alert, oriented to person and cooperative Results & Data Results & Data ([facility]) Vital Signs (Past 12 Hours) Vital Signs Temp Pulse Pulse Pulse Resp BP Pulse Ox 02/10/21 15:30 36.7 C 103 H 18 93/54 L 98 02/10/21 15:26 36.6 C 100 H 16 150/65 H 98 02/10/21 14:00 36.6 C 93 H 18 112/65 94 02/10/21 13:45 36.6 C 91 H 18 112/68 94 02/10/21 13:30 97 H 16 114/67 94 02/10/21 13:15 100 H 100 H 16 111/61 92 02/10/21 12:06 103 H 136/69 02/10/21 10:52 36.4 C 120 H 19 72/42 L 90 02/10/21 07:51 36.6 C 117 H 20 95/48 L 90 02/10/21 07:00 98 H PG Care Time/CCT Total # of Minutes Spent Total Time Spent with Patient: Total time spent is greater than 50% in coordination of care (as documented) at patient's floor/unit and/or counseling patient: Coding Level of Care Code 67495 Subseq Hosp Care Lvl 2 Diagnoses AV fistula occlusion T82.898A Encounter type: initial encounter ESRD (end stage renal disease) N18.6 COVID-19 U07.1 Diabetes E11.9 Parkinson disease G20 GERD (gastroesophageal reflux disease) K21.9 DVT prophylaxis Z29.9 (1) AV fistula occlusion Encounter type: initial encounter Qualified Code(s): T82.898A - Other specified complication of vascular prosthetic devices, implants and grafts, initial encounter
--- NOTE | 2021-02-10 19:51 | Ultrasound Report ---
US venous doppler UE BI CLINICAL HISTORY: assess patentcy of BL IJ veins COMPARISON STUDY: No previous studies for comparison. TECHNIQUE: Sonography of the bilateral internal jugular and subclavian veins was performed. FINDINGS: The right internal jugular vein is patent although narrowed distally. There is nonocclusive deep venous thrombus within the mid to distal left internal jugular vein which extends into the left subclavian vein. There is occlusive deep venous thrombus within the left subcla vian vein. IMPRESSION: 1. Nonocclusive deep venous thrombus within the mid to distal left internal jugular vein which extend s into the left subclavian vein. Occlusive deep venous thrombus within the left subclavian vein. 2. Right internal jugular vein patent although narrowed distally. ACT 112: Negative or not required by law. Electronically signed by: Yonatan Hobbs M.D. 02/10/2021 7:50 PM
[2021-02-10] MEDS: ATORVASTATIN 20 MG TAB PO SCH (20:19)
[2021-02-10] MEDS: ACETAMINOPHEN 325 MG TAB PO PRN (20:19)
[2021-02-10] MEDS: INSULIN GLARGINE SOLOSTAR 100 UNITS/ML 3 ML PEN SQ SCH (20:21)
--- NOTE | 2021-02-10 23:20 | Communication Note ---
Date of Service: February 10, 2021 Notified by nursing at 23:13 that patient's venous doppler results showed a nonocclusive DVT within the mid to distal L internal jugular vein which extends to the L subclavian vein in addition to occlusive DVT within the L subclavian vein. Saw patient at bedside who noted over all she was feeling well, was without headache, SOB, chest pain, weakness. PE: Heart RRR no murmurs, radial and ulnar pulses palpable in UE b/l Lungs CTA b/l, normal respiratory effort Plan: -At this time will start patient on Heparin gtt -Vascular surgery already consulted and following -If symptoms worsen will consider CT for screening for SVC syndrome Resident Activity Tracking Resident Involvement: Resident Care Provided and [employer] Coverage Note Care Provided: Adult Hospital Medicine
[2021-02-10] MEDS ORDERED: HEPARIN 25000 UNIT/500 ML D5W IV ONE (23:31)
[2021-02-11] MEDS: Heparin IV Adult Wt-Based Standard *NO* Bolus Protocol IV SCH ×4 (00:28→02:17)
[2021-02-11] MEDS: HEPARIN SODIUM/DEXTROSE 25,000 UNITS/500 ML BAG IV SCH ×2 (00:51→13:31)
--- NOTE | 2021-02-11 07:36 | History & Physical Bridge Note ---
Date of Service February 11, 2021 History & Physical Bridge Note Patient for permcath insertion today. USN showed thrombosis of left int jug vein and patent right internal jugular vein with distal narrowing. I have discussed the risks options and benefits of the procedure with the patient. The patient understands the risks options and benefits and agrees to the procedure. I have examined the patient, reviewed the History & Physical and in the interval since the performance of the History & Physical I have noted the following changes of clinical significance: no changes noted
[2021-02-11 07:41] LABS: Basophils # (auto) 0.01 K/uL (0-0.2); Basophils % (auto) 0.1 %; Eosinophils # (auto) 0.39 K/uL (0-0.5); Eosinophils % (auto) 5.5 %; Hematocrit (blood only) 25.4 % (37-47); Hemoglobin 8.1 g/dL (12.0-16.0); Immature Granulocytes # (auto) 0.13 K/uL (0.00-0.02); Immature Granulocytes % (auto) 1.8 %; Lymphocytes # (auto) 1.46 K/uL (1.2-3.4); Lymphocytes % (auto) 20.8 %; Mean Corpuscular Hemoglobin 31.6 pg (25-34); Mean Corpuscular Hgb Conc 31.9 g/dL (32-36); Mean Corpuscular Volume 99.2 fL (80-100); Mean Platelet Volume 9.3 fL (7.4-10.4); Monocytes # (auto) 0.67 K/uL (0.11-0.59); Monocytes % (auto) 9.5 %; Neutrophils # (auto) 4.37 K/uL (1.4-6.5); Neutrophils % (auto) 62.3 %; Platelet Count 271 K/uL (130-400); RDW Coefficient of Variation 13.6 % (11.5-14.5); RDW Standard Deviation 49.2 fL (36.4-46.3); Red Blood Count 2.56 M/uL (4.2-5.4); White Blood Count 7.03 K/uL (4.8-10.8)
[2021-02-11] MEDS ORDERED: HEPARIN SOD (PORCINE) 5,000 UNITS/ML VIAL ONE (07:47)
[2021-02-11] MEDS ORDERED: MIDAZOLAM HCL 1 MG/ML 2ML VIAL ONE (07:47)
[2021-02-11] MEDS ORDERED: fentaNYL citrate 100 MCG/2 ML VIAL ONE (07:47)
--- NOTE | 2021-02-11 07:58 | Pre Anesthesia Assessment ---
Date of Service February 11, 2021 Pre Sedation Assessment Vital Signs Temp Pulse Pulse Pulse Pulse Resp BP 02/11/21 07:40 36.8 C 99 H 20 02/11/21 07:32 91 H 02/11/21 07:28 36.4 C L 102 H 16 02/11/21 04:19 36.6 C 94 H 18 02/10/21 23:48 94 H 02/10/21 23:37 02/10/21 23:26 95 H 02/10/21 23:16 36.8 C 96 H 20 02/10/21 19:35 36.4 C L 98 H 20 103/56 L 02/10/21 15:30 36.7 C 103 H 18 02/10/21 15:26 36.6 C 100 H 16 02/10/21 14:00 36.6 C 93 H 18 02/10/21 13:45 36.6 C 91 H 18 02/10/21 13:30 97 H 16 02/10/21 13:15 100 H 100 H 16 02/10/21 12:06 103 H 02/10/21 10:52 36.4 C 120 H 19 BP Pulse Ox 02/11/21 07:40 109/49 L 93 02/11/21 07:32 02/11/21 07:28 119/64 93 02/11/21 04:19 119/61 95 02/10/21 23:48 02/10/21 23:37 128/70 02/10/21 23:26 153/64 H 02/10/21 23:16 75/45 L 93 02/10/21 19:35 91 02/10/21 15:30 93/54 L 98 02/10/21 15:26 150/65 H 98 02/10/21 14:00 112/65 94 02/10/21 13:45 112/68 94 02/10/21 13:30 114/67 94 02/10/21 13:15 111/61 92 02/10/21 12:06 136/69 02/10/21 10:52 72/42 L 90 Cardiovascular RRR, no murmur, no edema Respiratory normal respiratory effort, lungs clear to auscultation Pre-Sedation Airway Assessment Smoking Status: Former smoker Hx Sleep Apnea: No Short, Thick Neck: Yes Thyromental Distance: < 3.5 Finger Breadths Oral Cavity: + Dental Abnormalities Mallampati Class: II ASA: ASA3 NPO Status Date of Last Intake of Fluids: 02/11/21 Time of Last Intake of Fluids: 00:00 Last Oral Intake of Fluids Comment: t Date of Last Intake of Solid Food: 02/11/21 Time of Last Intake of Solid Foods: 00:00 Procedure Planning Contraindications for Sedation: none Current Medications Reviewed: Yes Notes The planned sedation has been discussed with the patient. Informed Consent was obtained. I have identified the patient, determined the appropriateness of sedation and have assessed the patient immediately prior to the procedure. All medicine(s) and interventions are by my order.
[2021-02-11] MEDS ORDERED: HYDROCORTISONE SOD SUCCINATE 100 MG/2 ML VIAL ONE (07:59)
[2021-02-11] MEDS ORDERED: D5W AND 1/4NSS 1,000 ML IV SCH (08:00)
[2021-02-11] MEDS ORDERED: LIDOCAINE 1% LOCAL 20 ML VIAL ONE ×2 (08:08→08:39)
[2021-02-11] MEDS ORDERED: ceFAZolin 1000MG 1,000 MG/7.5 ML SYR IV SCH (08:10)
[2021-02-11 08:11] LABS: BUN Creatinine Ratio 23.7 (10-20); Calcium 8.7 mg/dl (8.5-10.1); Creatinine Clr Calc Pharmacy 11.5 ml/min; Est GFR (African American) 12.9 ml/min; Est GFR (Non-African American) 11.2 ml/min; Potassium 3.9 mmol/L (3.5-5.1)
[2021-02-11] MEDS ORDERED: HYDROCORTISONE SOD 100 MG in SYRINGE 0 ML IV ONE (08:15)
[2021-02-11] MEDS ORDERED: SODIUM CHLORIDE 0.9% 1000ML 1,000 ML IV PRN (08:22)
[2021-02-11] MEDS ORDERED: EPOETIN ALFA 10,000 UNITS/ML VIAL IV ONE (08:45)
--- NOTE | 2021-02-11 09:02 | Post Operative Brief Note ---
Immediate Post Op Note v1 Date of Surgery February 11, 2021 Pre & Post Diagnosis Operation Date: 02/11/21 08:00 Pre-Op Diagnosis: Thrombosed Fistula Post-Op Diagnosis: Thrombosed Fistula I identified the patient and participated in the time-out.: Yes Procedure Operation Date: 02/11/21 08:00 Actual Procedures p Insertion of Perm Catheter, Right Internal Jugular Approach, Ultrasound Localization of Right Internal Jugular Vein, Fluoroscopy for positioning, Moderate sedation [id number](Right) - Les Whiting MD Surgeon Les Whiting MD Wood Carver Hand MD Brenda Estimated Blood Loss 3 Findings Consistent with Post-Op Diagnosis Anesthesia Type RN Sedation Complications none Disposition Accompanied Patient To Recovery: Yes Disposition: Recovery Room
--- NOTE | 2021-02-11 09:07 | Procedure Note ---
Angiogram Post Procedure Fluoroscopy Time (minutes): 0.9 Radiation (mGy): 2.6 Contrast: 0 cc Post Operative Report Pre & Post Diagnosis Operation Date: 02/11/21 08:00 Pre-Op Diagnosis: Thrombosed Fistula Post-Op Diagnosis: Thrombosed Fistula I identified the patient and participated in the time-out.: Yes Procedure Operation Date: 02/11/21 08:00 Actual Procedures p Insertion of Perm Catheter, Right Internal Jugular Approach, Ultrasound Localization of Right Internal Jugular Vein, Fluoroscopy for positioning, Moderate sedation (Right) - Les Whiting MD Surgeon Les Whiting MD Collections Assistant Alta Patel MD Estimated Blood Loss 3 Findings Consistent with Post-Op Diagnosis Specimens None Anesthesia Type RN Sedation Disposition Accompanied Patient To Recovery: No Disposition: Recovery Room Indications This is a 70 year old female with end-stage renal disease on hemodialysis. Her arteriovenous fistula is thrombosed. She is in need of hemodialysis access. Description of Procedure The patient was taken to the operating suite. The patient's identity and surgical procedure were verified. The patient was transferred over to the operating room table and placed in the supine position. The right side of the neck and chest wall were prepped and draped in a sterile manner. A team timeout was performed including confirmation of the patient's identity, surgical site, and surgical procedure. Local anesthesia was then administered to the appr opriate areas of the neck and chest wall. Ultrasound was then used to locate the right internal jugular vein. The vein compressed easily, had no filing defects, and was patent. On first access attempt a small needle was passed into the carotid artery with pulsatile backbleeding. The needle was removed and manual pressure was held. No expanding hematoma or further pulsatile bleeding was noted. The vein was then punctured under direct ultrasound imaging. A guidewire was then passed centrally under fluoroscopic imaging. A stab wound was then made in the anterior chest wall and a 19 cm permcath was passed from the stab wound on the chest wall to the puncture site on the neck. The puncture site was then dilated till the 14Fr peel away sheath was inserted. The permcath was then inserted through the sheath to a central position in the distal superior vena cava. The peel away sheath was then removed. The catheter was then sutured in place using nylon sutures. The puncture was then closed using a 4-0 Vicryl subcuticular suture. Dermabond was used for a dressing on the puncture site. Both ports aspirated and flushed easily and were then packed with heparin. A sterile dressing was applied to the catheter. The patient left the angio suite in good condition and tolerated the procedure well. Dr. Whiting was present and scrubbed for the entirety of the procedure. I attest to the content of the Intraoperative Record and any orders documented therein. Any exceptions are noted below.
--- NOTE | 2021-02-11 09:16 | Post Anesthesia Assessment ---
Date of Service February 11, 2021 Post Sedation Assessment Vital Signs Temp Pulse Pulse Pulse Pulse Resp BP 02/11/21 09:08 95 H 18 02/11/21 09:03 98 H 18 02/11/21 09:01 99 H 18 02/11/21 08:56 94 H 18 02/11/21 08:51 98 H 18 02/11/21 08:46 96 H 18 02/11/21 08:41 99 H 22 02/11/21 08:36 98 H 20 02/11/21 08:31 98 H 22 02/11/21 08:26 97 H 20 02/11/21 08:21 96 H 20 02/11/21 08:16 102 H 20 02/11/21 07:40 36.8 C 99 H 20 02/11/21 07:32 91 H 02/11/21 07:28 36.4 C L 102 H 16 02/11/21 04:19 36.6 C 94 H 18 02/10/21 23:48 94 H 02/10/21 23:37 02/10/21 23:26 95 H 02/10/21 23:16 36.8 C 96 H 20 02/10/21 19:35 36.4 C L 98 H 20 103/56 L 02/10/21 15:30 36.7 C 103 H 18 02/10/21 15:26 36.6 C 100 H 16 02/10/21 14:00 36.6 C 93 H 18 02/10/21 13:45 36.6 C 91 H 18 02/10/21 13:30 97 H 16 02/10/21 13:15 100 H 100 H 16 02/10/21 12:06 103 H 02/10/21 10:52 36.4 C 120 H 19 BP Pulse Ox 02/11/21 09:08 100/50 L 100 02/11/21 09:03 112/59 L 100 02/11/21 09:01 126/70 100 02/11/21 08:56 127/72 100 02/11/21 08:51 120/62 100 02/11/21 08:46 130/66 100 02/11/21 08:41 124/62 100 02/11/21 08:36 133/77 100 02/11/21 08:31 141/77 H 100 02/11/21 08:26 135/79 100 02/11/21 08:21 145/80 H 100 02/11/21 08:16 150/72 H 100 02/11/21 07:40 109/49 L 93 02/11/21 07:32 02/11/21 07:28 119/64 93 02/11/21 04:19 119/61 95 02/10/21 23:48 02/10/21 23:37 128/70 02/10/21 23:26 153/64 H 02/10/21 23:16 75/45 L 93 02/10/21 19:35 91 02/10/21 15:30 93/54 L 98 02/10/21 15:26 150/65 H 98 02/10/21 14:00 112/65 94 02/10/21 13:45 112/68 94 02/10/21 13:30 114/67 94 02/10/21 13:15 111/61 92 02/10/21 12:06 136/69 02/10/21 10:52 72/42 L 90 Recovery Score Activity: Moves 4 extremities Respiration: Deep Breath/Cough Circulation: +/-20% PreAnes Value Consciousness: Fully Awake Oxygen Saturation: > 92% On Room Air Post Anesthesia Score: 10 Discharge Sedation Level of Care: Fast Track Phase II Post Sedation Plan On clinical assessment, the patient appears to have tolerated the sedation without complications. Patient is recovering as anticipated. Patient will continue to be monitored by nursing and may be discharged when sedation discharge criteria are met per below protocol. Upon Completions of procedure up to 15 minutes continue every 5 minute vital signs and the P.A.R. score; then discharge to a Phase I or Fast Track to Phase II per the following guidelines: * Discharge Patient to appropriate Phase II area if PAR is 8 or greater or return to pre- procedure baseline. The post - procedure orders will be as directed. * If PAR score is less than 8 or not return to pre-procedure baseline then patient will follow Phase I monitoring till PAR is reached for Phase II. The Phase I may be done in procedure room or may call to secure a Phase I area. * If naloxone or flumazenil are used for reversal, hold in Phase I for continued monitoring from when last reversal dose was given for a minimum of 60 minutes or longer pending the nurse and/or physician discretion of patient condition before discharge to Phase II. Please call the Sedation Physician to re-evaluate and complete post-note for discharge to Phase II area. Do NOT discharge from procedure sedation or Phase 1 until post- sedation evaluation note is complete by procedure /sedation MD Sedation Discharge Instructions to be given to the patient at discharge to home.
--- NOTE | 2021-02-11 10:40 | Nephrology Progress Note ---
Date of Service February 11, 2021 Assessment & Plan (1) ESRD (end stage renal disease): Plan: * Last HD 02/04/21 * Temporary L IJ HD catheter was removed yesterday * Patient is nonoliguric and remains on oral Bumex therapy * Will schedule HD following R IJ THC insertion today (2) AV fistula occlusion: Plan: * R IJ THC to be inserted today * Patient will likely require new AVF/AVG as outpatient (3) Anemia due to chronic kidney disease: Plan: * Will administer DORITA w/ HD today * Iron saturation 30% 02/08 (4) Hypotension arterial: Plan: * On Midodrine 5 mg po TID (5) COVID-19: Plan: * Persistent bibasilar opacities with masslike consolidation of the lateral left midlung containing equivocal central cavitation. Correlation with chest CT recommended. Repeat CXR later that day did not show this lesion - defer further imaging to primary service. Admission and Anticipated Discharge Date Admission Date: February 03, 2021 Subjective Ms. Herrera was evaluated in her hospital room early this morning. She was being prepared for IJ THC insertion. She voiced no new medical concerns Review of Systems Constitutional: + weakness; no fever Eyes: no problem reported Ear, Nose, Mouth, Throat: no problem reported Respiratory: no cough and no dyspnea Cardiovascular: no chest pain and no edema Gastrointestinal: no abdominal pain Genitourinary: no dysuria and no hematuria Musculoskeletal: no back pain Integumentary: no rash Neurologic: no falls and no confusion Physical Exam Constitutional: + ill appearing Eyes: PERRL, conjunctivae normal, anicteric sclerae ENMT: external ear and nose normal, oropharynx normal Neck: trachea midline, no thyromegaly Respiratory: normal respiratory effort, lungs clear to auscultation Cardiovascular: RRR, no murmur, no edema Gastrointestinal (Abdomen): normal bowel sounds, soft, nontender, no hepatosplenomegaly Musculoskeletal: Extremities: no cyanosis Skin: no rashes, warm and dry Neurologic: awake Results & Data ([facility]) Vital Signs (Past 12 Hours) Vital Signs Temp Pulse Pulse Pulse Resp BP Pulse Ox 02/11/21 09:08 95 H 18 100/50 L 100 02/11/21 09:03 98 H 18 112/59 L 100 02/11/21 09:01 99 H 18 126/70 100 02/11/21 08:56 94 H 18 127/72 100 02/11/21 08:51 98 H 18 120/62 100 02/11/21 08:46 96 H 18 130/66 100 02/11/21 08:41 99 H 22 124/62 100 02/11/21 08:36 98 H 20 133/77 100 02/11/21 08:31 98 H 22 141/77 H 100 02/11/21 08:26 97 H 20 135/79 100 02/11/21 08:21 96 H 20 145/80 H 100 02/11/21 08:16 102 H 20 150/72 H 100 02/11/21 07:40 36.8 C 99 H 20 109/49 L 93 02/11/21 07:32 91 H 02/11/21 07:28 36.4 C L 102 H 16 119/64 93 02/11/21 04:19 36.6 C 94 H 18 119/61 95 02/10/21 23:48 94 H 02/10/21 23:37 128/70 02/10/21 23:26 95 H 153/64 H 02/10/21 23:16 36.8 C 96 H 20 75/45 L 93 Laboratory Results Laboratory Tests 02/11/21 02/11/21 07:30 07:30 WBC 7.03 Hgb 8.1 L Hct 25.4 L Plt Count 271 Sodium 139 Potassium 3.9 Chloride 104 Carbon Dioxide 28 BUN 90 H Creatinine 3.81 H Glucose 84 PG Care Time/CCT Total # of Minutes Spent Total Time Spent with Patient: Total time spent is greater than 50% in coordination of care (as documented) at patient's floor/unit and/or counseling patient: Coding Level of Care Code 67786 Subseq Hosp Care Lvl 3 Diagnoses ESRD (end stage renal disease) N18.6 AV fistula occlusion T82.898A Encounter type: initial encounter Anemia due to chronic kidney disease N18.9; D63.1 Hypotension arterial I95.9 COVID-19 U07.1 (1) AV fistula occlusion Encounter type: initial encounter Qualified Code(s): T82.898A - Other specified complication of vascular prosthetic devices, implants and grafts, initial encounter
[2021-02-11] MEDS: INSULIN ASPART 100 UNITS/ML 3 ML PEN SC SCH ×4 (12:27→20:37)
[2021-02-11] MEDS: METOCLOPRAMIDE HCL 10 MG TABLET PO SCH ×4 (12:29→20:38)
[2021-02-11] MEDS: CARBIDOPA/LEVODOP 10/100MG TAB PO SCH ×3 (12:39→20:38)
[2021-02-11] MEDS: CITALOPRAM 20 MG TAB PO SCH (12:39)
[2021-02-11] MEDS: PANCREAZE (LIPASE 10,500U) CAP PO SCH ×3 (12:39→16:46)
[2021-02-11] MEDS: HEPARIN SOD 5,000 UNIT/0.5 ML VIAL SQ SCH (12:41)
[2021-02-11] MEDS: PANTOprazole 40 MG TAB PO SCH (12:42)
[2021-02-11] MEDS: FOLIC ACID 1 MG TAB PO SCH (12:42)
[2021-02-11] MEDS: MIDODRINE HCL 2.5 MG TAB PO SCH ×3 (12:42→16:47)
[2021-02-11] MEDS ORDERED: NORMOSOL-R 250 ML IV ONE (12:52)
[2021-02-11] MEDS: BUMETANIDE 1 MG TAB PO SCH (13:13)
--- NOTE | 2021-02-11 13:54 | Hospitalist Progress Note ---
Date of Service February 11, 2021 Assessment & Plan (1) DVT (deep venous thrombosis): Plan: Doppler of the bilateral internal jugular veins on 02/10 showed "deep venous thrombus within the mid to distal left internal jugular vein which extends into the left subclavian vein." - Started heparin gtt overnight - Paused on 02/11 for right tunneled-line placement. Resumed promptly after surgery. - Will need transition to warfarin or possibly apixaban given ESRD. (2) AV fistula occlusion: Plan: AVF Duplex on admission showed occlusion. Likely occluded since HD session on Wednesday, 01/31. - Vascular surgery consulted -> Plan for tunneled, Permacath tomorrow. U/s of the bilateral jugular veins ordered today to help plan procedure. (3) ESRD (end stage renal disease): Plan: Per patient, she follows with [facility] in [place]. Only gets HD on Wednesday and Fridays and continues to make urine. - CXR indicated volume overload on admission. - Discussed with nephrology -> Plan for HD after the Permacath is placed tomorrow. - Continue midodrine - Continue Bumex 2 mg PO daily (4) COVID-19: Plan: Reports being diagnosed ~01/21/2021 with no symptoms at the time (routine SNF testing). A few days later, developed cough which has persisted. Otherwise, no symptoms. - Finished isolation precautions on 02/10 (5) Diabetes: Plan: A1c was 6.8% this admission. Does not know her regimen at [facility]. - Long-acting dropped to 15 units HS (from either 20 units, 25 units, or 45 units; it is unclear and patient doesn't know). - Sliding scale insulin -> Blood sugars 100 - 200 in last 24 hours. (6) Parkinson disease: Plan: Presumed diagnosis. - Continue Sinemet (7) GERD (gastroesophageal reflux disease): Plan: - Continue PPI Admission and Anticipated Discharge Date Admission Date: February 03, 2021 Subjective Very tired today. Reports she's "terrible today." Otherwise, no focal issues. No pain. Reports no fevers/chills, chest pain, shortness of breath, abdominal pain, nausea, or vomiting. Physical Exam Constitutional: WD/WN, vitals as above Eyes: EOM intact bilaterally; no conjunctival abnormality ENMT: external ear and nose normal, oropharynx normal Neck: trachea midline, no thyromegaly normal visual inspection Respiratory: normal respiratory effort, lungs clear to auscultation no respiratory distress Cardiovascular: RRR, no murmur, no edema Extremities: + AV fistula (No bruit) Chest (Breasts): Chest: + vascular access device or port (Very mild bruising at new TLC) Gastrointestinal (Abdomen): Inspection/Auscultation: abdomen normal to inspection; abdomen not distended Musculoskeletal: no cyanosis or clubbing, extremities motor strength 5/5 Skin: no rashes, warm and dry Neurologic: moves all extremities and awake Psychiatric: Orientation: alert, oriented to person and cooperative Results & Data Results & Data ([facility]) Vital Signs (Past 12 Hours) Vital Signs Temp Pulse Pulse Pulse Pulse Resp BP 02/11/21 12:38 02/11/21 12:37 36.7 C 108 H 16 02/11/21 10:00 118 H 125/68 02/11/21 09:35 98 H 119/61 02/11/21 09:30 36.8 C 101 H 02/11/21 09:08 95 H 18 02/11/21 09:03 98 H 18 02/11/21 09:01 99 H 18 02/11/21 08:56 94 H 18 02/11/21 08:51 98 H 18 02/11/21 08:46 96 H 18 02/11/21 08:41 99 H 22 02/11/21 08:36 98 H 20 02/11/21 08:31 98 H 22 02/11/21 08:26 97 H 20 02/11/21 08:21 96 H 20 02/11/21 08:16 102 H 20 02/11/21 07:40 36.8 C 99 H 20 02/11/21 07:32 91 H 02/11/21 07:28 36.4 C L 102 H 16 02/11/21 04:19 36.6 C 94 H 18 BP Pulse Ox 02/11/21 12:38 69/38 L 02/11/21 12:37 68/34 L 02/11/21 10:00 02/11/21 09:35 02/11/21 09:30 02/11/21 09:08 100/50 L 100 02/11/21 09:03 112/59 L 100 02/11/21 09:01 126/70 100 02/11/21 08:56 127/72 100 02/11/21 08:51 120/62 100 02/11/21 08:46 130/66 100 02/11/21 08:41 124/62 100 02/11/21 08:36 133/77 100 02/11/21 08:31 141/77 H 100 02/11/21 08:26 135/79 100 02/11/21 08:21 145/80 H 100 02/11/21 08:16 150/72 H 100 02/11/21 07:40 109/49 L 93 02/11/21 07:32 02/11/21 07:28 119/64 93 02/11/21 04:19 119/61 95 PG Care Time/CCT Total # of Minutes Spent Total Time Spent with Patient: Total time spent is greater than 50% in coordination of care (as documented) at patient's floor/unit and/or counseling patient: Coding Level of Care Code 69005 Subseq Hosp Care Lvl 3 Diagnoses AV fistula occlusion T82.898A Encounter type: initial encounter ESRD (end stage renal disease) N18.6 COVID-19 U07.1 Diabetes E11.9 Parkinson disease G20 GERD (gastroesophageal reflux disease) K21.9 DVT (deep venous thrombosis) I82.409 (1) AV fistula occlusion Encounter type: initial encounter Qualified Code(s): T82.898A - Other specified complication of vascular prosthetic devices, implants and grafts, initial encounter
[2021-02-11 13:59] LABS: Partial Thromboplastin Ratio 2.1
[2021-02-11 14:05] LABS: Partial Thromboplastin Time 54.2 Seconds (21.0-31.0)
[2021-02-11] MEDS: INSULIN GLARGINE SOLOSTAR 100 UNITS/ML 3 ML PEN SQ SCH (20:37)
[2021-02-11] MEDS: ATORVASTATIN 20 MG TAB PO SCH (20:38)
[2021-02-11 20:59] LABS: Partial Thromboplastin Ratio 4.9
[2021-02-11 21:11] LABS: Partial Thromboplastin Time 129.8 Seconds (21.0-31.0)
[2021-02-12 06:09] LABS: Hematocrit (blood only) 22.6 % (37-47); Hemoglobin 7.1 g/dL (12.0-16.0); Mean Corpuscular Hemoglobin 31.7 pg (25-34); Mean Corpuscular Hgb Conc 31.4 g/dL (32-36); Mean Corpuscular Volume 100.9 fL (80-100); Mean Platelet Volume 9.6 fL (7.4-10.4); Platelet Count 219 K/uL (130-400); RDW Standard Deviation 50.8 fL (36.4-46.3); Red Blood Count 2.24 M/uL (4.2-5.4); White Blood Count 10.19 K/uL (4.8-10.8)
[2021-02-12 06:33] LABS: Partial Thromboplastin Ratio 3.8
[2021-02-12 06:44] LABS: Partial Thromboplastin Time 100.9 Seconds (21.0-31.0)
[2021-02-12 06:51] LABS: BUN Creatinine Ratio 19.8 (10-20); Calcium 8.6 mg/dl (8.5-10.1); Est GFR (African American) 17.8 ml/min; Est GFR (Non-African American) 15.3 ml/min; Potassium 3.8 mmol/L (3.5-5.1)
[2021-02-12] MEDS: METOCLOPRAMIDE HCL 10 MG TABLET PO SCH ×4 (07:50→20:56)
[2021-02-12] MEDS: PANCREAZE (LIPASE 10,500U) CAP PO SCH ×3 (07:50→17:11)
[2021-02-12] MEDS: CARBIDOPA/LEVODOP 10/100MG TAB PO SCH ×3 (08:14→20:56)
[2021-02-12] MEDS: CITALOPRAM 20 MG TAB PO SCH (08:14)
[2021-02-12] MEDS: FOLIC ACID 1 MG TAB PO SCH (08:15)
[2021-02-12] MEDS: PANTOprazole 40 MG TAB PO SCH (08:15)
[2021-02-12] MEDS: MIDODRINE HCL 2.5 MG TAB PO SCH ×3 (08:15→17:11)
[2021-02-12] MEDS: INSULIN ASPART 100 UNITS/ML 3 ML PEN SC SCH ×4 (08:21→20:20)
[2021-02-12 09:47] LABS: Basophils # (auto) 0.01 K/uL (0-0.2); Basophils % (auto) 0.1 %; Eosinophils # (auto) 0.32 K/uL (0-0.5); Eosinophils % (auto) 3.5 %; Hematocrit (blood only) 19.7 % (37-47); Hemoglobin 6.4 g/dL (12.0-16.0); Immature Granulocytes # (auto) 0.15 K/uL (0.00-0.02); Immature Granulocytes % (auto) 1.7 %; Lymphocytes # (auto) 1.46 K/uL (1.2-3.4); Lymphocytes % (auto) 16.1 %; Mean Corpuscular Hemoglobin 32.5 pg (25-34); Mean Corpuscular Hgb Conc 32.5 g/dL (32-36); Mean Platelet Volume 9.4 fL (7.4-10.4); Monocytes # (auto) 0.72 K/uL (0.11-0.59); Monocytes % (auto) 7.9 %; Neutrophils % (auto) 70.7 %; Platelet Count 179 K/uL (130-400); RDW Coefficient of Variation 14.2 % (11.5-14.5); Red Blood Count 1.97 M/uL (4.2-5.4); White Blood Count 9.06 K/uL (4.8-10.8)
[2021-02-12] MEDS ORDERED: SODIUM CHLORIDE 0.9% 250 ML IV PRN ×2 (09:48→10:44)
--- NOTE | 2021-02-12 09:53 | Nephrology Progress Note ---
Date of Service February 12, 2021 Assessment & Plan (1) ESRD (end stage renal disease): Plan: * No heparin given on HD yesterday due to IJ THC insertion. HD treatment terminated after 2 hours yesterday due to circuit clotting * Patient is nonoliguric and remains on oral Bumex therapy * Patient is clinically euvolemic. Electrolyte balance is acceptable. No acute indication for HD today * Will plan next HD for am (2) AV fistula occlusion: Plan: * R IJ THC placed 02/11/21 * Patient will likely require new AVF/AVG as outpatient (3) Anemia due to chronic kidney disease: Plan: * DORITA is being administered w/ HD treatments * Iron saturation 30% 02/08 * Significant drop in Hgb last 24 hours. Will order one unit PRBC today * Recommend monitoring H&H (4) Hypotension arterial: Plan: * On Midodrine 5 mg po TID (5) COVID-19: Plan: * Persistent bibasilar opacities with masslike consolidation of the lateral left midlung containing equivocal central cavitation. Correlation with chest CT recommended. Repeat CXR later that day did not show this lesion - defer further imaging to primary service. Admission and Anticipated Discharge Date Admission Date: February 03, 2021 Subjective Ms. Herrera was evaluated in her hospital room this morning. Patient was dialyzed yesterday using her R IJ THC. Dialysis circuit clotted 2 hours into treatment (no heparin given) and HD was stopped. Patient had bleeding from IJ site over night. Hgb this am is 6.4. Ms. Herrera currently denies fever, angina or dyspnea. She c/o weakness Review of Systems Constitutional: + weakness; no fever Eyes: no problem reported Ear, Nose, Mouth, Throat: no problem reported Respiratory: no cough and no dyspnea Cardiovascular: no chest pain and no edema Gastrointestinal: no abdominal pain Genitourinary: no dysuria and no hematuria Musculoskeletal: no back pain Integumentary: no rash Neurologic: no falls and no confusion Physical Exam Constitutional: + ill appearing Eyes: PERRL, conjunctivae normal, anicteric sclerae ENMT: external ear and nose normal, oropharynx normal Neck: trachea midline, no thyromegaly (R IJ THC site w/ no active bleeding at this time) Respiratory: normal respiratory effort, lungs clear to auscultation Cardiovascular: RRR, no murmur, no edema Gastrointestinal (Abdomen): normal bowel sounds, soft, nontender, no hepatosplenomegaly Musculoskeletal: Extremities: no cyanosis Skin: no rashes, warm and dry Neurologic: awake Results & Data ([facility]) Vital Signs (Past 12 Hours) Vital Signs Temp Pulse Resp BP BP Pulse Ox 02/12/21 07:00 37 C 97 H 20 117/61 92 02/12/21 06:27 103 H 124/65 91 02/11/21 23:00 37.2 C 101 H 18 106/52 L 95 Laboratory Results Laboratory Tests 02/12/21 02/12/21 05:27 05:27 WBC 10.19 Hgb 7.1 L Hct 22.6 L Plt Count 219 Sodium 138 Potassium 3.8 Chloride 106 BUN 58 H Creatinine 2.93 H D Glucose 105 H Laboratory Tests 02/12/21 09:20 Hgb 6.4 L* PG Care Time/CCT Total # of Minutes Spent Total Time Spent with Patient: Total time spent is greater than 50% in coordination of care (as documented) at patient's floor/unit and/or counseling patient: Coding Level of Care Code 34484 Subseq Hosp Care Lvl 3 Diagnoses ESRD (end stage renal disease) N18.6 AV fistula occlusion T82.898A Encounter type: initial encounter Anemia due to chronic kidney disease N18.9; D63.1 Hypotension arterial I95.9 COVID-19 U07.1 (1) AV fistula occlusion Encounter type: initial encounter Qualified Code(s): T82.898A - Other specified complication of vascular prosthetic devices, implants and grafts, initial encounter
[2021-02-12 10:07] LABS: Basophilic Stippling 1+; Polychromasia 1+
--- NOTE | 2021-02-12 13:01 | Hospitalist Progress Note ---
Date of Service February 12, 2021 Assessment & Plan (1) Acute blood loss anemia: Plan: Hemoglobin ~8 - 9 baseline, likely due to chronic kidney disease and chronic disease. However, between surgery (for her tunneled-line on 02/11) and losing about 500 mL of blood in the dialysis machine when her line clotted, she dropped to 6.4 on 02/12. No melenic or bloody stools, no bruising, no abdominal pain to indicate RP bleed (or reason for an RP bleed) -> No signs of other bleeding. - Transfusing 1 unit of PRBCs - Monitor hgb (2) DVT (deep venous thrombosis): Plan: Doppler of the bilateral internal jugular veins on 02/10 showed "deep venous thrombus within the mid to distal left internal jugular vein which extends into the left subclavian vein." - Started heparin gtt on 02/10 - Paused on 02/11 for right tunneled-line placement. Resumed promptly after surgery. - Will need transition to warfarin or possibly apixaban given ESRD after hemoglobin stabilizes. (3) AV fistula occlusion: Plan: AVF Duplex on admission showed occlusion. Likely occluded since HD session on Wednesday, 01/31. - Vascular surgery consulted -> Tunneled, Permacath done on 02/11. (4) ESRD (end stage renal disease): Plan: Per patient, she follows with [facility] Nephrology in [place]. Only gets HD on Wednesday and Fridays and continues to make urine. - CXR indicated volume overload on admission. - Discussed with nephrology - Continue midodrine - Continue Bumex 2 mg PO daily (5) COVID-19: Plan: Reports being diagnosed ~01/21/2021 with no symptoms at the time (routine SNF testing). A few days later, developed cough which has persisted. Otherwise, no symptoms. - Finished isolation precautions on 02/10 (6) Diabetes: Plan: A1c was 6.8% this admission. Does not know her regimen at [facility]. - Long-acting dropped to 15 units HS (from either 20 units, 25 units, or 45 units; it is unclear and patient doesn't know). - Sliding scale insulin -> Blood sugars 100 - 300 in last 24 hours. Will tighten sliding scale slightly. (7) Parkinson disease: Plan: Presumed diagnosis. - Continue Sinemet (8) GERD (gastroesophageal reflux disease): Plan: - Continue PPI Admission and Anticipated Discharge Date Admission Date: February 03, 2021 Subjective Actually feeling better today. More energy. No major issues. Reports no fevers/chills, chest pain, shortness of breath, abdominal pain, nausea, or vomiting. Physical Exam Constitutional: WD/WN, vitals as above Eyes: EOM intact bilaterally; no conjunctival abnormality ENMT: external ear and nose normal, oropharynx normal Neck: trachea midline, no thyromegaly normal visual inspection Respiratory: normal respiratory effort, lungs clear to auscultation no respiratory distress Cardiovascular: RRR, no murmur, no edema Extremities: + AV fistula (No bruit) Chest (Breasts): Chest: + vascular access device or port (Very mild bruising at new TLC) Gastrointestinal (Abdomen): Inspection/Auscultation: abdomen normal to inspection; abdomen not distended Musculoskeletal: no cyanosis or clubbing, extremities motor strength 5/5 Skin: no rashes, warm and dry Neurologic: moves all extremities and awake Psychiatric: Orientation: alert, oriented to person and cooperative Results & Data Results & Data ([facility]) Vital Signs (Past 12 Hours) Vital Signs Temp Pulse Pulse Resp BP BP BP 02/12/21 12:43 36.9 C 93 H 18 100/54 L 02/12/21 11:31 92/54 L 02/12/21 07:00 37 C 97 H 20 117/61 02/12/21 06:27 103 H 124/65 Pulse Ox 02/12/21 12:43 97 02/12/21 11:31 02/12/21 07:00 92 02/12/21 06:27 91 PG Care Time/CCT Total # of Minutes Spent Total Time Spent with Patient: Total time spent is greater than 50% in coordination of care (as documented) at patient's floor/unit and/or counseling patient: Coding Level of Care Code 48476 Subseq Hosp Care Lvl 3 Diagnoses DVT (deep venous thrombosis) I82.409 AV fistula occlusion T82.898A Encounter type: initial encounter ESRD (end stage renal disease) N18.6 COVID-19 U07.1 Diabetes E11.9 Parkinson disease G20 GERD (gastroesophageal reflux disease) K21.9 Acute blood loss anemia D62 (1) AV fistula occlusion Encounter type: initial encounter Qualified Code(s): T82.898A - Other specified complication of vascular prosthetic devices, implants and grafts, initial encounter
[2021-02-12] MEDS: BUMETANIDE 1 MG TAB PO SCH (13:47)
[2021-02-12 14:45] LABS: Partial Thromboplastin Ratio 2.1
[2021-02-12 14:48] LABS: Partial Thromboplastin Time 55.9 Seconds (21.0-31.0)
[2021-02-12] MEDS: HEPARIN SODIUM/DEXTROSE 25,000 UNITS/500 ML BAG IV SCH (17:07)
[2021-02-12] MEDS: ATORVASTATIN 20 MG TAB PO SCH (20:56)
[2021-02-12] MEDS: INSULIN GLARGINE SOLOSTAR 100 UNITS/ML 3 ML PEN SQ SCH (20:57)
[2021-02-12] MEDS: HEPARIN SOD 5,000 UNIT/0.5 ML VIAL SQ SCH (23:19)
[2021-02-13 06:37] LABS: Basophils # (auto) 0.01 K/uL (0-0.2); Basophils % (auto) 0.1 %; Eosinophils % (auto) 6.6 %; Hemoglobin 9.3 g/dL (12.0-16.0); Immature Granulocytes # (auto) 0.18 K/uL (0.00-0.02); Lymphocytes # (auto) 1.25 K/uL (1.2-3.4); Lymphocytes % (auto) 13.7 %; Mean Corpuscular Hemoglobin 32.1 pg (25-34); Mean Corpuscular Hgb Conc 33.2 g/dL (32-36); Mean Corpuscular Volume 96.6 fL (80-100); Mean Platelet Volume 9.9 fL (7.4-10.4); Monocytes # (auto) 0.67 K/uL (0.11-0.59); Monocytes % (auto) 7.3 %; Neutrophils # (auto) 6.41 K/uL (1.4-6.5); Neutrophils % (auto) 70.3 %; Platelet Count 192 K/uL (130-400); RDW Coefficient of Variation 15.5 % (11.5-14.5); RDW Standard Deviation 54.5 fL (36.4-46.3); White Blood Count 9.12 K/uL (4.8-10.8)
[2021-02-13 06:55] LABS: Partial Thromboplastin Ratio 1.8
[2021-02-13 06:57] LABS: Partial Thromboplastin Time 47.2 Seconds (21.0-31.0)
[2021-02-13 07:23] LABS: BUN Creatinine Ratio 19.9 (10-20); Calcium 8.4 mg/dl (8.5-10.1); Creatinine Clr Calc Pharmacy 13.7 ml/min; Est GFR (African American) 15.9 ml/min; Est GFR (Non-African American) 13.7 ml/min; Magnesium 1.1 mg/dl (1.8-2.4); Potassium 4.5 mmol/L (3.5-5.1)
[2021-02-13] MEDS ORDERED: SODIUM CHLORIDE 0.9% 1000ML 1,000 ML IV PRN (08:28)
[2021-02-13] MEDS: FOLIC ACID 1 MG TAB PO SCH (08:57)
[2021-02-13] MEDS: PANTOprazole 40 MG TAB PO SCH (08:57)
[2021-02-13] MEDS: CITALOPRAM 20 MG TAB PO SCH (08:57)
[2021-02-13] MEDS: PANCREAZE (LIPASE 10,500U) CAP PO SCH ×3 (08:59→17:19)
[2021-02-13] MEDS: CARBIDOPA/LEVODOP 10/100MG TAB PO SCH ×3 (08:59→21:30)
[2021-02-13] MEDS: METOCLOPRAMIDE HCL 10 MG TABLET PO SCH ×4 (08:59→21:31)
[2021-02-13] MEDS: INSULIN ASPART 100 UNITS/ML 3 ML PEN SC SCH ×4 (09:00→21:32)
[2021-02-13] MEDS ORDERED: EPOETIN ALFA 10,000 UNITS/ML VIAL IV SCH (09:00)
[2021-02-13] MEDS: MIDODRINE HCL 2.5 MG TAB PO SCH ×3 (09:04→17:18)
--- NOTE | 2021-02-13 10:38 | Nephrology Progress Note ---
Date of Service February 13, 2021 Assessment & Plan (1) ESRD (end stage renal disease): Plan: * HD today for correction of azotemia * Patient is nonoliguric and remains on oral Bumex therapy (2) AV fistula occlusion: Plan: * R IJ THC placed 02/11/21 * Patient will likely require new AVF/AVG as outpatient (3) DVT (deep venous thrombosis): Plan: * 02/10 carotid doppler: DVT L IJ with extension into subclavian vein * Currently on heparin gtt (4) Anemia due to chronic kidney disease: Plan: * DORITA is being administered w/ HD treatments * Iron saturation 30% 02/08 * 1 U PRBC transfused 02/12/21. Hgb improved from 6.4 to 9.3 (5) Hypotension arterial: Plan: * On Midodrine 5 mg po TID (6) COVID-19: Plan: * Received two doses Moderna vaccine * Tested COVID + 01/21/21, 02/03/21 Admission and Anticipated Discharge Date Admission Date: February 03, 2021 Subjective Ms. Herrera was evaluated in her hospital room this morning. She received 1 U PRBC yesterday. She denies overt blood loss. Ms. Herrera c/o weakness. She denies dyspnea or uremic symptoms. Review of Systems Constitutional: + weakness; no fever Eyes: no problem reported Ear, Nose, Mouth, Throat: no problem reported Respiratory: no cough and no dyspnea Cardiovascular: no chest pain and no edema Gastrointestinal: no abdominal pain Genitourinary: no dysuria and no hematuria Musculoskeletal: no back pain Integumentary: no rash Neurologic: no falls and no confusion Physical Exam Constitutional: + ill appearing Eyes: PERRL, conjunctivae normal, anicteric sclerae ENMT: external ear and nose normal, oropharynx normal Neck: trachea midline, no thyromegaly (R IJ THC site w/ no active bleeding at this time) Respiratory: normal respiratory effort, lungs clear to auscultation Cardiovascular: RRR, no murmur, no edema Gastrointestinal (Abdomen): normal bowel sounds, soft, nontender, no hepatosplenomegaly Musculoskeletal: Extremities: no cyanosis Skin: no rashes, warm and dry Neurologic: awake Results & Data ([facility]) Vital Signs (Past 12 Hours) Vital Signs Temp Pulse Resp BP Pulse Ox 02/13/21 07:59 36.9 C 106 H 114/64 92 02/12/21 22:56 36.9 C 95 H 20 151/64 H 94 Laboratory Results Laboratory Tests 02/13/21 02/13/21 05:46 05:46 WBC 9.12 Hgb 9.3 L Hct 28.0 L Plt Count 192 Sodium 134 L Potassium 4.5 D Chloride 103 Carbon Dioxide 26 BUN 64 H Creatinine 3.21 H Glucose 257 H PG Care Time/CCT Total # of Minutes Spent Total Time Spent with Patient: Total time spent is greater than 50% in coordination of care (as documented) at patient's floor/unit and/or counseling patient: Coding Level of Care Code 88899 Subseq Hosp Care Lvl 3 Diagnoses ESRD (end stage renal disease) N18.6 AV fistula occlusion T82.898A Encounter type: initial encounter Anemia due to chronic kidney disease N18.9; D63.1 Hypotension arterial I95.9 COVID-19 U07.1 DVT (deep venous thrombosis) I82.409 (1) AV fistula occlusion Encounter type: initial encounter Qualified Code(s): T82.898A - Other speci fied complication of vascular prosthetic devices, implants and grafts, initial encounter
[2021-02-13] MEDS: BUMETANIDE 1 MG TAB PO SCH (14:03)
[2021-02-13] MEDS: MAGNESIUM SULFATE / D5W 1 GM/100 ML BAG IV SCH ×4 (14:11→21:28)
--- NOTE | 2021-02-13 15:23 | Hospitalist Progress Note ---
Date of Service February 13, 2021 Assessment & Plan (1) DVT (deep venous thrombosis): Plan: Doppler of the bilateral internal jugular veins on 02/10 showed "deep venous thrombus within the mid to distal left internal jugular vein which extends into the left subclavian vein." - Started heparin gtt on 02/10 - Started warfarin on 02/13 (waited 1 extra day due to anemia). Monitor INR. Will need to transition fully while in the hospital because given her poor kidney function, she cannot use Lovenox and no DOACs acceptable (after discussion with hematology and Dr. Shaw). (2) Acute blood loss anemia: Plan: Hemoglobin ~8 - 9 baseline, likely due to chronic kidney disease and chronic disease. However, between surgery (for her tunneled-line on 02/11) and losing about 500 mL of blood in the dialysis machine when her line clotted, she dropped to 6.4 on 02/12. No melenic or bloody stools, no bruising, no abdominal pain to indicate RP bleed (or reason for an RP bleed) -> No signs of other bleeding. - Transfused 1 unit of PRBCs on 02/12 - Monitor hgb -> Now up to 9.3 today. (3) AV fistula occlusion: Plan: AVF Duplex on admission showed occlusion. Likely occluded since HD session on Wednesday, 01/31. - Vascular surgery consulted -> Tunneled, Permacath done on 02/11. (4) ESRD (end stage renal disease): Plan: Per patient, she follows with [facility] Nephrology in [place]. Only gets HD on Wednesday and Fridays and continues to make urine. - CXR indicated volume overload on admission. - Discussed with nephrology - Continue midodrine - Continue Bumex 2 mg PO daily (5) COVID-19: Plan: Reports being diagnosed ~01/21/2021 with no symptoms at the time (routine SNF testing). A few days later, developed cough which has persisted. Otherwise, no symptoms. - Finished isolation precautions on 02/10 (6) Diabetes: Plan: A1c was 6.8% this admission. Does not know her regimen at [facility]. - Long-acting dropped to 15 units HS (from either 20 units, 25 units, or 45 units; it is unclear and patient doesn't know). - Sliding scale insulin -> Blood sugars 120 - 280 in last 24 hours. (7) Parkinson disease: Plan: Presumed diagnosis. - Continue Sinemet (8) GERD (gastroesophageal reflux disease): Plan: - Continue PPI Admission and Anticipated Discharge Date Admission Date: February 03, 2021 Subjective Doing well today. Seen after HD and had some nausea. Otherwise, no issues. Reports no fevers/chills, chest pain, shortness of breath, abdominal pain, or vomiting. Physical Exam Constitutional: WD/WN, vitals as above Eyes: EOM intact bilaterally; no conjunctival abnormality ENMT: external ear and nose normal, oropharynx normal Neck: trachea midline, no thyromegaly normal visual inspection Respiratory: normal respiratory effort, lungs clear to auscultation no respiratory distress Cardiovascular: RRR, no murmur, no edema Extremities: + AV fistula (No bruit) Chest (Breasts): Chest: + vascular access device or port (Very mild bruising at new TLC) Gastrointestinal (Abdomen): Inspection/Auscultation: abdomen normal to inspection; abdomen not distended Musculoskeletal: no cyanosis or clubbing, extremities motor strength 5/5 Skin: no rashes, warm and dry Neurologic: moves all extremities and awake Psychiatric: Orientation: alert, oriented to person and cooperative Results & Data Results & Data ([facility]) Vital Signs (Past 12 Hours) Vital Signs Temp Pulse Pulse Pulse BP BP Pulse Ox 02/13/21 13:52 36.9 C 100 H 119/54 L 02/13/21 13:23 108 H 86/47 L 02/13/21 13:00 109 H 93/57 L 02/13/21 12:40 110 H 98/33 L 02/13/21 12:20 103 H 85/47 L 02/13/21 12:05 108 H 138/72 02/13/21 12:00 69 72/36 L 02/13/21 11:40 95 H 119/58 L 02/13/21 11:14 85 125/74 02/13/21 10:30 36.9 C 90 02/13/21 07:59 36.9 C 106 H 114/64 92 PG Care Time/CCT Total # of Minutes Spent Total Time Spent with Patient: Total time spent is greater than 50% in coordination of care (as documented) at patient's floor/unit and/or counseling patient: Coding Level of Care Code 86185 Subseq Hosp Care Lvl 2 Diagnoses Acute blood loss anemia D62 DVT (deep venous thrombosis) I82.409 AV fistula occlusion T82.898A Encounter type: initial encounter ESRD (end stage renal disease) N18.6 COVID-19 U07.1 Diabetes E11.9 Parkinson disease G20 GERD (gastroesophageal reflux disease) K21.9 (1) AV fistula occlusion Encounter type: initial encounter Qualified Code(s): T82.898A - Other specified complication of vascular prosthetic devices, implants and grafts, initial encounter
[2021-02-13] MEDS ORDERED: TXA 10% Non-IV Routes 100 MG/ML VIAL TOP STA (17:13)
[2021-02-13] MEDS: WARFARIN SOD 2.5 MG TAB PO SCH (17:18)
[2021-02-13] MEDS: hydrOXYzine HCl 10 MG TAB PO PRN (21:30)
[2021-02-13] MEDS: ATORVASTATIN 20 MG TAB PO SCH (21:31)
[2021-02-13] MEDS: INSULIN GLARGINE SOLOSTAR 100 UNITS/ML 3 ML PEN SQ SCH (21:34)
[2021-02-13] MEDS ORDERED: hydrOXYzine HCl 10 MG TAB PO STA (22:08)
[2021-02-13] MEDS: HYDROCORTISONE 2.5% CR 30 GM TUBE EXT PRN (22:47)
[2021-02-14 03:40] LABS: Hematocrit (blood only) 28.8 % (37-47); Hemoglobin 9.3 g/dL (12.0-16.0); Mean Corpuscular Hemoglobin 31.7 pg (25-34); Mean Corpuscular Hgb Conc 32.3 g/dL (32-36); Mean Corpuscular Volume 98.3 fL (80-100); Mean Platelet Volume 9.8 fL (7.4-10.4); Platelet Count 132 K/uL (130-400); RDW Coefficient of Variation 14.8 % (11.5-14.5); RDW Standard Deviation 53.1 fL (36.4-46.3); Red Blood Count 2.93 M/uL (4.2-5.4); White Blood Count 8.77 K/uL (4.8-10.8)
[2021-02-14 03:54] LABS: Partial Thromboplastin Ratio 1.7; Partial Thromboplastin Time 43.6 Seconds (21.0-31.0); Prothrombin Time 9.9 Seconds (9.0-12.0)
[2021-02-14 04:02] LABS: BUN Creatinine Ratio 17.9 (10-20); Calcium 8.7 mg/dl (8.5-10.1); Creatinine Clr Calc Pharmacy 21.2 ml/min; Est GFR (Non-African American) 23.3 ml/min; Magnesium 2.7 mg/dl (1.8-2.4); Potassium 4.1 mmol/L (3.5-5.1)
[2021-02-14] MEDS: HEPARIN SODIUM/DEXTROSE 25,000 UNITS/500 ML BAG IV SCH (04:40)
[2021-02-14] MEDS: MIDODRINE HCL 2.5 MG TAB PO SCH ×3 (08:33→17:09)
[2021-02-14] MEDS: PANTOprazole 40 MG TAB PO SCH (08:33)
[2021-02-14] MEDS: hydrOXYzine HCl 10 MG TAB PO PRN ×2 (08:33→21:07)
[2021-02-14] MEDS: PANCREAZE (LIPASE 10,500U) CAP PO SCH ×3 (08:34→17:10)
[2021-02-14] MEDS: FOLIC ACID 1 MG TAB PO SCH (08:34)
[2021-02-14] MEDS: BUMETANIDE 1 MG TAB PO SCH (08:34)
[2021-02-14] MEDS: CITALOPRAM 20 MG TAB PO SCH (08:34)
[2021-02-14] MEDS: METOCLOPRAMIDE HCL 10 MG TABLET PO SCH ×4 (08:34→21:07)
[2021-02-14] MEDS: CARBIDOPA/LEVODOP 10/100MG TAB PO SCH ×3 (08:34→21:06)
[2021-02-14] MEDS: INSULIN ASPART 100 UNITS/ML 3 ML PEN SC SCH ×4 (08:37→21:00)
--- NOTE | 2021-02-14 10:44 | Nephrology Progress Note ---
Date of Service February 14, 2021 Assessment & Plan (1) ESRD (end stage renal disease): Plan: * Patient is nonoliguric and remains on oral Bumex therapy * Volume status and electrolyte balance are acceptable. No acute indication for HD today * Will schedule next HD for Wednesday and then consider M/F regimen (2) AV fistula occlusion: Plan: * R IJ THC placed 02/11/21 * Patient will likely require new AVF/AVG as outpatient (3) DVT (deep venous thrombosis): Plan: * 02/10 carotid doppler: DVT L IJ with extension into subclavian vein * Currently on heparin gtt. Remains subtherapeutic on warfarin (4) Anemia due to chronic kidney disease: Plan: * DORITA is being administered w/ HD treatments * Iron saturation 30% 02/08 * 1 U PRBC transfused 02/12/21. Hgb improved from 6.4 to 9.3 (5) Hypotension arterial: Plan: * On Midodrine 5 mg po TID (6) COVID-19: Plan: * Received two doses Moderna vaccine * Tested COVID + 01/21/21, 02/03/21 Admission and Anticipated Discharge Date Admission Date: February 03, 2021 Subjective Ms. Herrera was evaluated in her hospital room this morning. She is much more alert this morning. She denies dyspnea or uremic symptoms. Review of Systems Constitutional: + weakness; no fever Eyes: no problem reported Ear, Nose, Mouth, Throat: no problem reported Respiratory: no cough and no dyspnea Cardiovascular: no chest pain and no edema Gastrointestinal: no abdominal pain Genitourinary: no dysuria and no hematuria Musculoskeletal: no back pain Integumentary: no rash Neurologic: no falls and no confusion Physical Exam Constitutional: + ill appearing Eyes: PERRL, conjunctivae normal, anicteric sclerae ENMT: external ear and nose normal, oropharynx normal Neck: trachea midline, no thyromegaly (R IJ THC site w/ no active bleeding at this time) Respiratory: normal respiratory effort, lungs clear to auscultation Cardiovascular: RRR, no murmur, no edema Gastrointestinal (Abdomen): normal bowel sounds, soft, nontender, no hepatosplenomegaly Musculoskeletal: Extremities: no cyanosis Skin: no rashes, warm and dry Neurologic: awake Results & Data ([facility]) Vital Signs (Past 12 Hours) Vital Signs Temp Pulse Resp BP Pulse Ox 02/14/21 07:46 36.8 C 97 H 20 171/68 H 91 02/13/21 23:00 36.8 C 80 18 154/74 H 95 Laboratory Results Laboratory Tests 02/14/21 02/14/21 02/14/21 03:25 03:25 03:25 WBC 8.77 Hgb 9.3 L Hct 28.8 L Plt Count 132 INR 1.0 Sodium 136 Potassium 4.1 Chloride 103 Carbon Dioxide 28 BUN 37 H Creatinine 2.07 H D Glucose 237 H PG Care Time/CCT Total # of Minutes Spent Total Time Spent with Patient: Total time spent is greater than 50% in coordination of care (as documented) at patient's floor/unit and/or counseling patient: Coding Level of Care Code 42518 Subseq Hosp Care Lvl 3 Diagnoses ESRD (end stage renal disease) N18.6 AV fistula occlusion T82.898A Encounter type: initial encounter DVT (deep venous thrombosis) I82.409 Anemia due to chronic kidney disease N18.9; D63.1 Hypotension arterial I95.9 COVID-19 U07.1 (1) AV fistula occlusion Encounter type: initial encounter Qualified Code(s): T82.898A - Other specified complication of vascular prosthetic devices, implants and grafts, initial encounter
[2021-02-14 10:45] LABS: Partial Thromboplastin Time 53.8 Seconds (21.0-31.0)
--- NOTE | 2021-02-14 12:20 | Hospitalist Progress Note ---
Date of Service February 14, 2021 Assessment & Plan (1) DVT (deep venous thrombosis): Plan: Doppler of the bilateral internal jugular veins on 02/10 showed "deep venous thrombus within the mid to distal left internal jugular vein which extends into the left subclavian vein." - Started heparin gtt on 02/10 - Started warfarin on 02/13 (waited 1 extra day due to anemia). Monitor INR. Will need to transition fully while in the hospital because given her poor kidney function, she cannot use Lovenox and no DOACs acceptable (after discussion with hematology and Dr. Shaw). - INR today is 1.0. Continue warfarin 2.5 mg PO daily. (2) Acute blood loss anemia: Plan: Hemoglobin ~8 - 9 baseline, likely due to chronic kidney disease and chronic disease. However, between surgery (for her tunneled-line on 02/11) and losing about 500 mL of blood in the dialysis machine when her line clotted, she dropped to 6.4 on 02/12. No melenic or bloody stools, no bruising, no abdominal pain to indicate RP bleed (or reason for an RP bleed) -> No signs of other bleeding. - Transfused 1 unit of PRBCs on 02/12 - Monitor hgb -> Now up to 9.3 today. (3) AV fistula occlusion: Plan: AVF Duplex on admission showed occlusion. Likely occluded since HD session on Wednesday, 01/31. - Vascular surgery consulted -> Tunneled, Permacath done on 02/11. - Had some bleeding at the site on 02/13 after an HD session. Used TXA-soaked gauze and paused heparin which stopped the bleeding nicely. Looks good on 02/14. (4) ESRD (end stage renal disease): Plan: Per patient, she follows with [facility] Nephrology in [place]. Only gets HD on Wednesday and Fridays and continues to make urine. - CXR indicated volume overload on admission. - Discussed with nephrology -> Plan for HD tomorrow. - Continue midodrine - Continue Bumex 2 mg PO daily (5) COVID-19: Plan: Reports being diagnosed ~01/21/2021 with no symptoms at the time (routine SNF testing). A few days later, developed cough which has persisted. Otherwise, no symptoms. - Finished isolation precautions on 02/10 (6) Diabetes: Plan: A1c was 6.8% this admission. Does not know her regimen at [facility]. - Long-acting dropped to 15 units HS (from either 20 units, 25 units, or 45 units; it is unclear and patient doesn't know). - Sliding scale insulin -> Blood sugars 240 - 310 in last 24 hours. Will tighten SSI. (7) Parkinson disease: Plan: Presumed diagnosis. - Continue Sinemet (8) GERD (gastroesophageal reflux disease): Plan: - Continue PPI Admission and Anticipated Discharge Date Admission Date: February 03, 2021 Subjective Doing well today. She had some bleeding at her TLC site yesterday, but this has resolved. It is bandaged nicely. Otherwise, no complaints. Reports no fevers/chills, chest pain, shortness of breath, abdominal pain, nausea, or vomiting. Physical Exam Constitutional: WD/WN, vitals as above Eyes: EOM intact bilaterally; no conjunctival abnormality ENMT: external ear and nose normal, oropharynx normal Neck: trachea midline, no thyromegaly normal visual inspection Respiratory: normal respiratory effort, lungs clear to auscultation no respiratory distress Cardiovascular: RRR, no murmur, no edema Extremities: + AV fistula (No bruit) Chest (Breasts): Chest: + vascular access device or port (Very mild bruising at new TLC) Gastrointestinal (Abdomen): Inspection/Auscultation: abdomen normal to inspection; abdomen not distended Musculoskeletal: no cyanosis or clubbing, extremities motor strength 5/5 Skin: no rashes, warm and dry Neurologic: moves all extremities and awake Psychiatric: Orientation: alert, oriented to person and cooperative Results & Data Results & Data ([facility]) Vital Signs (Past 12 Hours) Vital Signs Temp Pulse Resp BP Pulse Ox 02/14/21 11:11 36.8 C 105 H 18 149/52 H 95 02/14/21 07:46 36.8 C 97 H 20 171/68 H 91 PG Care Time/CCT Total # of Minutes Spent Total Time Spent with Patient: Total time spent is greater than 50% in coordination of care (as documented) at patient's floor/unit and/or counseling patient: Coding Level of Care Code 07943 Subseq Hosp Care Lvl 3 Diagnoses DVT (deep venous thrombosis) I82.409 Acute blood loss anemia D62 AV fistula occlusion T82.898A Encounter type: initial encounter ESRD (end stage renal disease) N18.6 COVID-19 U07.1 Diabetes E11.9 Parkinson disease G20 GERD (gastroesophageal reflux disease) K21.9 (1) AV fistula occlusion Encounter type: initial encounter Qualified Code(s): T82.898A - Other specified complication of vascular prosthetic devices, implants and grafts, ini tial encounter
[2021-02-14] MEDS: WARFARIN SOD 2.5 MG TAB PO SCH (17:09)
[2021-02-14] MEDS: INSULIN GLARGINE SOLOSTAR 100 UNITS/ML 3 ML PEN SQ SCH (21:02)
[2021-02-14] MEDS: ATORVASTATIN 20 MG TAB PO SCH (21:06)
[2021-02-14] MEDS: HYDROCORTISONE 2.5% CR 30 GM TUBE EXT PRN (22:57)
[2021-02-14] MEDS ORDERED: diphenhydrAMINE Capsule 25 MG CAP PO ONE (23:06)
[2021-02-14] MEDS ORDERED: diphenhydrAMINE Capsule 25 MG CAP ONE (23:15)
[2021-02-15] MEDS: HEPARIN SODIUM/DEXTROSE 25,000 UNITS/500 ML BAG IV SCH (02:02)
[2021-02-15] MEDS ORDERED: SODIUM CHLORIDE 0.9% 1000ML 1,000 ML IV PRN (07:00)
[2021-02-15 07:24] LABS: Hematocrit (blood only) 29.1 % (37-47); Hemoglobin 9.6 g/dL (12.0-16.0); Mean Corpuscular Hemoglobin 32.3 pg (25-34); Mean Platelet Volume 10.1 fL (7.4-10.4); Platelet Count 167 K/uL (130-400); RDW Coefficient of Variation 14.8 % (11.5-14.5); RDW Standard Deviation 52.9 fL (36.4-46.3); Red Blood Count 2.97 M/uL (4.2-5.4); White Blood Count 9.97 K/uL (4.8-10.8)
[2021-02-15 07:35] LABS: Partial Thromboplastin Ratio 1.7; Partial Thromboplastin Time 43.7 Seconds (21.0-31.0)
[2021-02-15 07:42] LABS: BUN Creatinine Ratio 20.2 (10-20); Est GFR (African American) 19.2 ml/min; Est GFR (Non-African American) 16.6 ml/min; Potassium 3.9 mmol/L (3.5-5.1)
[2021-02-15] MEDS: INSULIN ASPART 100 UNITS/ML 3 ML PEN SC SCH ×4 (08:52→21:29)
[2021-02-15] MEDS: METOCLOPRAMIDE HCL 10 MG TABLET PO SCH ×4 (08:54→21:26)
[2021-02-15] MEDS: FOLIC ACID 1 MG TAB PO SCH (08:57)
[2021-02-15] MEDS: PANCREAZE (LIPASE 10,500U) CAP PO SCH ×3 (08:57→16:19)
[2021-02-15] MEDS: MIDODRINE HCL 2.5 MG TAB PO SCH ×3 (08:58→16:20)
[2021-02-15] MEDS: CARBIDOPA/LEVODOP 10/100MG TAB PO SCH ×3 (08:59→21:26)
[2021-02-15] MEDS: CITALOPRAM 20 MG TAB PO SCH (08:59)
[2021-02-15] MEDS: PANTOprazole 40 MG TAB PO SCH (08:59)
--- NOTE | 2021-02-15 10:57 | Nephrology Progress Note ---
Date of Service February 15, 2021 Assessment & Plan (1) ESRD (end stage renal disease): (2) DVT (deep venous thrombosis): (3) Anemia due to chronic kidney disease: (4) AV fistula occlusion: Plan: ESRD on HD MWF, admitted with nonfunctioning AV fistula and missed dialysis. Was also found to have him positive OB test, currently off of isolation. Had AV for tunneled dialysis catheter placement. She was also found to have deep venous thrombosis and central vein and started on heparin drip and had bleeding causing drop in hemoglobin, received blood transfusion. Catheter site bleeding stoped, hemoglobin stable. Currently blood pressure, electrolyte, acceptable. Has been having decent urine output. -- Dialysis this afternoon as her regular schedule. -- continued Nephrocaps and renal diet -- dose medications for GFR less than 10 -- Avoid IV fluid Will follow Admission and Anticipated Discharge Date Admission Date: February 03, 2021 Subjective Federica has been overall feeling well, denies any symptoms. Hemoglobin stable. No further bleeding from tunneled dialysis catheter site. Electrolyte acceptable. Volume status acceptable. Blood pressure well controlled Review of Systems Review of Systems: detailed review of system was otherwise unremarkable. Physical Exam Constitutional: WD/WN, vitals as above + ill appearing; no acute distress ENMT: Ears: no hearing impairment Neck: trachea midline Respiratory: no cough Auscultation: lungs clear to auscultation bilaterally; no crackles and no wheezes Cardiovascular: RRR, no murmur, no edema Extremities: + AV fistula (left BC AVF with no thrill or bruit.) Gastrointestinal (Abdomen): normal bowel sounds, soft, nontender, no hepatosplenomegaly Musculoskeletal: Extremities: extremities normal to inspection Skin: no rashes, warm and dry Neurologic: no focal motor deficits and not confused Psychiatric: A+Ox3, euthymic affect Results & Data ([facility] [place]) Vital Signs (Past 12 Hours) Vital Signs Temp Pulse Resp BP BP Pulse Ox 02/15/21 07:29 36.7 C 104 H 18 110/60 93 02/14/21 23:00 36.9 C 81 20 136/62 92 PG Care Time/CCT Total # of Minutes Spent Total Time Spent with Patient: Total time spent is greater than 50% in c oordination of care (as documented) at patient's floor/unit and/or counseling patient: Coding Level of Care Code 53982 Subseq Hosp Care Lvl 2 Diagnoses DVT (deep venous thrombosis) I82.409 ESRD (end stage renal disease) N18.6 Anemia due to chronic kidney disease N18.9; D63.1 AV fistula occlusion T82.898A Encounter type: initial encounter (1) AV fistula occlusion Encounter type: initial encounter Qualified Code(s): T82.898A - Other specified complication of vascular prosthetic devices, implants and grafts, initial encounter
[2021-02-15] MEDS: BUMETANIDE 1 MG TAB PO SCH (11:00)
--- NOTE | 2021-02-15 14:19 | Hospitalist Progress Note ---
Date of Service February 15, 2021 Assessment & Plan (1) DVT (deep venous thrombosis): Plan: Doppler of the bilateral internal jugular veins on 02/10 showed "deep venous thrombus within the mid to distal left internal jugular vein which extends into the left subclavian vein." - Started heparin gtt on 02/10 - Started warfarin on 02/13 (waited 1 extra day due to anemia). Monitor INR. Will need to transition fully while in the hospital because given her poor kidney function, she cannot use Lovenox and no DOACs acceptable (after discussion with hematology and Dr. Shaw). - INR was 1.0. Continue warfarin 2.5 mg PO daily. (2) Acute blood loss anemia: Plan: Hemoglobin ~8 - 9 baseline, likely due to chronic kidney disease and chronic disease. However, between surgery (for her tunneled-line on 02/11) and losing about 500 mL of blood in the dialysis machine when her line clotted, she dropped to 6.4 on 02/12. No melenic or bloody stools, no bruising, no abdominal pain to indicate RP bleed (or reason for an RP bleed) -> No signs of other bleeding. - Transfused 1 unit of PRBCs on 02/12 - Monitor hgb -> Now up to 9.6 today. (3) AV fistula occlusion: Plan: AVF Duplex on admission showed occlusion. Likely occluded since HD session on Wednesday, 01/31. - Vascular surgery consulted -> Tunneled, Permacath done on 02/11. - Had some bleeding at the site on 02/13 after an HD session. Used TXA-soaked gauze and paused heparin which stopped the bleeding nicely. Looks good on 02/15. (4) ESRD (end stage renal disease): Plan: Per patient, she follows with [facility] Nephrology in [place]. Only gets HD on Wednesday and Fridays and continues to make urine. - CXR indicated volume overload on admission. - Discussed with nephrology -> HD today. Looked euvolemic to slightly dry, so she was run "even" on the HD machine today. - Continue midodrine - Continue Bumex 2 mg PO daily (5) COVID-19: Plan: Reports being diagnosed ~01/21/2021 with no symptoms at the time (routine SNF testing). A few days later, developed cough which has persisted. Otherwise, no symptoms. - Finished isolation precautions on 02/10 (6) Diabetes: Plan: A1c was 6.8% this admission. Does not know her regimen at [facility]. - Long-acting dropped to 15 units HS (from either 20 units, 25 units, or 45 units; it is unclear and patient doesn't know). - Sliding scale insulin -> Blood sugars 130 - 190 in last 24 hours. (7) Parkinson disease: Plan: Presumed diagnosis. - Continue Sinemet (8) GERD (gastroesophageal reflux disease): Plan: - Continue PPI Admission and Anticipated Discharge Date Admission Date: February 03, 2021 Subjective Tired during dialysis. Again with some nausea. Reports no fevers/chills, chest pain, shortness of breath, abdominal pain, or vomiting. Physical Exam Constitutional: WD/WN, vitals as above Eyes: EOM intact bilaterally; no conjunctival abnormality ENMT: external ear and nose normal, oropharynx normal Neck: trachea midline, no thyromegaly normal visual inspection Respiratory: normal respiratory effort, lungs clear to auscultation no respiratory distress Cardiovascular: RRR, no murmur, no edema Extremities: + AV fistula (No bruit) Chest (Breasts): Chest: + vascular access device or port (Very mild bruising at new TLC) Gastrointestinal (Abdomen): Inspection/Auscultation: abdomen normal to inspection; abdomen not distended Musculoskeletal: no cyanosis or clubbing, extremities motor strength 5/5 Skin: no rashes, warm and dry Neurologic: moves all extremities and awake Psychiatric: Orientation: alert, oriented to person and cooperative Results & Data Results & Data ([facility]) Vital Signs (Past 12 Hours) Vital Signs Temp Pulse Pulse Pulse Resp BP BP 02/15/21 13:00 02/15/21 12:04 36.3 C L 106 H 16 02/15/21 11:26 36.6 C 103 H 110/60 02/15/21 11:20 125 H 160/58 H 02/15/21 11:00 120 H 159/84 H 02/15/21 10:57 129 H 108/65 02/15/21 10:40 104 H 111/58 L 02/15/21 10:29 99 H 166/79 H 02/15/21 10:21 36.8 C 101 H 02/15/21 07:29 36.7 C 104 H 18 110/60 BP Pulse Ox 02/15/21 13:00 142/66 H 02/15/21 12:04 175/78 H 94 02/15/21 11:26 131/55 L 02/15/21 11:20 02/15/21 11:00 02/15/21 10:57 02/15/21 10:40 02/15/21 10:29 02/15/21 10:21 02/15/21 07:29 93 PG Care Time/CCT Total # of Minutes Spent Total Time Spent with Patient: Total time spent is greater than 50% in coordination of care (as documented) at patient's floor/unit and/or counseling patient: Coding Level of Care Code 63741 Subseq Hosp Care Lvl 2 Diagnoses DVT (deep venous thrombosis) I82.409 Acute blood loss anemia D62 AV fistula occlusion T82.898A Encounter type: initial encounter ESRD (end stage renal disease) N18.6 COVID-19 U07.1 Diabetes E11.9 Parkinson disease G20 GERD (gastroesophageal reflux disease) K21.9 (1) AV fistula occlusion Encounter type: initial encounter Qualified Code(s): T82.898A - Other specified complication of vascular prosthetic devices, implants and grafts, initial encounter
[2021-02-15 15:12] LABS: Partial Thromboplastin Ratio 2.2
[2021-02-15 15:19] LABS: Partial Thromboplastin Time 58.1 Seconds (21.0-31.0)
[2021-02-15] MEDS: WARFARIN SOD 2.5 MG TAB PO SCH (16:20)
[2021-02-15] MEDS: ACETAMINOPHEN 325 MG TAB PO PRN (17:50)
[2021-02-15] MEDS: ATORVASTATIN 20 MG TAB PO SCH (21:26)
[2021-02-15] MEDS: INSULIN GLARGINE SOLOSTAR 100 UNITS/ML 3 ML PEN SQ SCH (21:30)
[2021-02-16 05:55] LABS: Hematocrit (blood only) 27.8 % (37-47); Hemoglobin 9.1 g/dL (12.0-16.0); Mean Corpuscular Hemoglobin 32.2 pg (25-34); Mean Corpuscular Hgb Conc 32.7 g/dL (32-36); Mean Corpuscular Volume 98.2 fL (80-100); Mean Platelet Volume 10.3 fL (7.4-10.4); Platelet Count 145 K/uL (130-400); RDW Coefficient of Variation 14.9 % (11.5-14.5); RDW Standard Deviation 52.8 fL (36.4-46.3); Red Blood Count 2.83 M/uL (4.2-5.4); White Blood Count 9.59 K/uL (4.8-10.8)
[2021-02-16 06:10] LABS: INR 1.1 (0.9-1.1); Partial Thromboplastin Ratio 1.9
[2021-02-16 06:29] LABS: Alanine Aminotransferase < 6 U/L (12-78); Albumin Level 2.4 gm/dl (3.4-5.0); Aspartate Aminotransferase 7 U/L (15-37); BUN Creatinine Ratio 20.8 (10-20); Blood Urea Nitrogen 52 mg/dl (7-18); Calcium 8.7 mg/dl (8.5-10.1); Carbon Dioxide 26 mmol/L (21-32); Chloride 103 mmol/L (98-107); Creatinine Clr Calc Pharmacy 17.7 ml/min; Est GFR (African American) 21.7 ml/min; Est GFR (Non-African American) 18.8 ml/min; Glucose 66 mg/dl (70-99); Magnesium 1.8 mg/dl (1.8-2.4); Potassium 4.2 mmol/L (3.5-5.1); Sodium 137 mmol/L (136-145)
[2021-02-16 06:30] LABS: Partial Thromboplastin Time 48.9 Seconds (21.0-31.0)
[2021-02-16 06:31] LABS: Albumin Globulin Ratio 0.6 (0.9-2); Alkaline Phosphatase 120 U/L (45-117); Bilirubin,Total 0.4 mg/dl (0.2-1); Globulin 3.7 gm/dl (2.5-4.0); Total Protein 6.1 gm/dl (6.4-8.2)
[2021-02-16] MEDS: METOCLOPRAMIDE HCL 10 MG TABLET PO SCH ×4 (08:13→22:17)
[2021-02-16] MEDS: PANCREAZE (LIPASE 10,500U) CAP PO SCH ×3 (08:14→16:48)
[2021-02-16] MEDS: BUMETANIDE 1 MG TAB PO SCH (08:15)
[2021-02-16] MEDS: MIDODRINE HCL 2.5 MG TAB PO SCH ×3 (09:31→16:49)
[2021-02-16] MEDS: CITALOPRAM 20 MG TAB PO SCH (09:32)
[2021-02-16] MEDS: CARBIDOPA/LEVODOP 10/100MG TAB PO SCH ×3 (09:33→22:17)
[2021-02-16] MEDS: FOLIC ACID 1 MG TAB PO SCH (09:33)
[2021-02-16] MEDS: HEPARIN SODIUM/DEXTROSE 25,000 UNITS/500 ML BAG IV SCH (09:49)
[2021-02-16] MEDS: INSULIN ASPART 100 UNITS/ML 3 ML PEN SC SCH ×4 (09:50→22:19)
[2021-02-16] MEDS: PANTOprazole 40 MG TAB PO SCH (09:51)
--- NOTE | 2021-02-16 10:32 | Nephrology Progress Note ---
Date of Service February 16, 2021 Assessment & Plan (1) ESRD (end stage renal disease): (2) DVT (deep venous thrombosis): (3) Anemia due to chronic kidney disease: (4) AV fistula occlusion: Plan: ESRD on HD MWF, admitted with nonfunctioning AV fistula and missed dialysis. Was also found to have him positive OB test, currently off of isolation. Had AV for tunneled dialysis catheter placement. She was also found to have deep venous thrombosis and central vein and started on heparin drip and had bleeding causing drop in hemoglobin, received blood transfusion. Catheter site bleeding stoped, hemoglobin stable. Currently blood pressure, electrolyte, acceptable. Has been having decent urine output. BP has been lwo and occasionally orthostatic. -- Bumex -- Dialysis TTS -- continued Nephrocaps and renal diet -- dose medications for GFR less than 10 -- Avoid IV fluid Will follow Admission and Anticipated Discharge Date Admission Date: February 03, 2021 Subjective Federica has been overall feeling well, denies any symptoms. Hemoglobin stable. Electrolyte acceptable even though she had short HD yesterday as BP dropped and she became less responsive and tachycardic. Volume status acceptable. Blood pressure well controlled Review of Systems Review of Systems: Detail ROS was otherwise unremarkable. Physical Exam Constitutional: WD/WN, vitals as above + ill appearing; no acute distress ENMT: Ears: no hearing impairment Neck: trachea midline Respiratory: no cough Auscultation: lungs clear to auscultation bilaterally; no crackles and no wheezes Cardiovascular: RRR, no murmur, no edema Extremities: + AV fistula (left BC AVF with no thrill or bruit.) Musculoskeletal: Extremities: extremities normal to inspection Skin: no rashes, warm and dry Neurologic: no focal motor deficits and not confused Psychiatric: A+Ox3, euthymic affect Results & Data ([facility]) Vital Signs (Past 12 Hours) Vital Signs Temp Pulse Pulse Resp BP BP Pulse Ox 02/16/21 07:57 107 H 118/64 02/16/21 07:38 122 H 20 136/70 96 02/16/21 07:04 36.6 C 88 16 127/56 L 94 02/16/21 02:50 123 H 89 L 02/16/21 02:49 106 H 92 02/15/21 22:41 36.6 C 90 16 150/63 H 94 PG Care Time/CCT Total # of Minutes Spent Total Time Spent with Patient: Total time spent is greater than 50% in coordination of care (as documented) at patient's floor/unit and/or counseling patient: Coding Level of Care Code 57013 Subseq Hosp Care Lvl 2 Diagnoses ESRD (end stage renal disease) N18.6 DVT (deep venous thrombosis) I82.409 Anemia due to chronic kidney disease N18.9; D63.1 AV fistula occlusion T82.898A Encounter type: initial encounter (1) AV fistula occlusion Encounter type: initial encounter Qualified Code(s): T82.898A - Other specified complication of vascular prosthetic devices, implants and grafts, initial encounter
--- NOTE | 2021-02-16 11:22 | Hospitalist Progress Note ---
Date of Service February 16, 2021 Assessment & Plan (1) Syncopal episodes: Plan: Has had several, 10-second syncopal episodes here. Regains consciousness quickly and without any confusion afterward. No tonic-clonic behavior. No incontinence. - Likely vasovagal. These are often in the context of position changes or during hemodialysis. No major concern for seizure. - Orthostatics were negative on 02/16. - Hold Bumex as she is now running slightly hypovolemic. Can manage volume status with HD. - Slow, careful transitions. Out of bed with assistance. Could consider compression stockings. (2) DVT (deep venous thrombosis): Plan: Doppler of the bilateral internal jugular veins on 02/10 showed "deep venous thrombus within the mid to distal left internal jugular vein which extends into the left subclavian vein." - Started heparin gtt on 02/10 - Started warfarin on 02/13 (waited 1 extra day due to anemia). Monitor INR. Will need to transition fully while in the hospital because given her poor kidney function, she cannot use Lovenox and no DOACs acceptable (after discussion with hematology and Dr. Shaw). - INR was 1.1 today. Will double today's dose (5 mg), then continue warfarin 2.5 mg PO daily. (3) Acute blood loss anemia: Plan: Hemoglobin ~8 - 9 baseline, likely due to chronic kidney disease and chronic disease. However, between surgery (for her tunneled-line on 02/11) and losing about 500 mL of blood in the dialysis machine on 02/11 when her line clotted, she dropped to 6.4 on 02/12. No melenic or bloody stools, no bruising, no abdominal pain to indicate RP bleed (or reason for an RP bleed) -> No signs of other bleeding. - Transfused 1 unit of PRBCs on 02/12 - Had some fairly mild bleeding around the TLC on 02/13. None since then. - Monitor hgb -> Now 9.1 today. (4) AV fistula occlusion: Plan: AVF Duplex on admission showed occlusion of her LUE fistula. Likely occluded since HD session on Wednesday, 01/31. - Vascular surgery consulted -> Tunneled Permacath done on 02/11. - Had some bleeding at the site on 02/13 after an HD session. Used TXA-soaked gauze and paused heparin which stopped the bleeding nicely. Looks good on 02/16. (5) ESRD (end stage renal disease): Plan: Per patient, she follows with [facility] Neph[facility] in [place]. Only gets HD on Wednesday and Fridays and continues to make urine. - CXR indicated volume overload on admission. - Discussed with nephrology -> HD on 02/15. Looked euvolemic to slightly dry, so she was run "even" on the HD machine. - Continue midodrine - Had been on Bumex 2 mg PO daily on admission (when she looked a bit hyperv olemic). Stopped on 02/16 as she's looks a bit dry now with more frequent HD sessions. (6) COVID-19: Plan: Reports being diagnosed ~01/21/2021 with no symptoms at the time (routine SNF testing). A few days later, developed cough which has persisted. Otherwise, no symptoms. - Finished isolation precautions on 02/10 (7) Diabetes: Plan: A1c was 6.8% this admission. Does not know her regimen at [facility]. - Long-acting dropped to 15 units HS (from either 20 units, 25 units, or 45 units; it is unclear and patient doesn't know). - Sliding scale insulin -> Blood sugars low this morning. We had been tightening sliding scale, but I agreed to pharmacy increasing her glargine from 15 units to 25 units HS on 02/14 without realizing it. (My fault entirely here. Reading through [place] texts too quickly.) She had been fairly steady overnight, so I think the increase in glargine pushed her too low. Will drop her evening glargine back to 15 units HS. Will leave sliding scale alone as I think it is working acceptably well. (8) Parkinson disease: Plan: Presumed diagnosis. - Continue Sinemet (9) GERD (gastroesophageal reflux disease): Plan: - Continue PPI Dispo: Complex arrangement where she was at [facility] ([facility]) -> [facility] -> [facility] (due to her Covid infection) -> [facility]. She would like to explore SNFs closer to home. Note: She does not want her sister given updates and only wants us to call her brother "if we have to." Admission and Anticipated Discharge Date Admission Date: February 03, 2021 Subjective No issues today. No further nausea. Reports no fevers/chills, chest pain, shortness of breath, abdominal pain, nausea, or vomiting. Physical Exam Constitutional: WD/WN, vitals as above Eyes: EOM intact bilaterally; no conjunctival abnormality ENMT: external ear and nose normal, oropharynx normal Neck: trachea midline, no thyromegaly normal visual inspection Respiratory: normal respiratory effort, lungs clear to auscultation no respiratory distress Cardiovascular: RRR, no murmur, no edema Extremities: + AV fistula (No bruit) Chest (Breasts): Chest: + vascular access device or port (Some small clots around the insertion site of the TLC) Gastrointestinal (Abdomen): Inspection/Auscultation: abdomen normal to inspection; abdomen not distended Musculoskeletal: no cyanosis or clubbing, extremities motor strength 5/5 Skin: no rashes, warm and dry Neurologic: moves all extremities and awake Psychiatric: Orientation: alert, oriented to person and cooperative Results & Data Results & Data ([facility]) Vital Signs (Past 12 Hours) Vital Signs Temp Pulse Pulse Resp BP BP Pulse Ox 02/16/21 07:57 107 H 118/64 02/16/21 07:38 122 H 20 136/70 96 02/16/21 07:04 36.6 C 88 16 127/56 L 94 02/16/21 02:50 123 H 89 L 02/16/21 02:49 106 H 92 PG Care Time/CCT Total # of Minutes Spent Total Time Spent with Patient: Total time spent is greater than 50% in coordination of care (as documented) at patient's floor/unit and/or counseling patient: Coding Level of Care Code 36710 Subseq Hosp Care Lvl 3 Diagnoses DVT (deep venous thrombosis) I82.409 Acute blood loss anemia D62 AV fistula occlusion T82.898A Encounter type: initial encounter ESRD (end stage renal disease) N18.6 COVID-19 U07.1 Diabetes E11.9 Parkinson disease G20 GERD (gastroesophageal reflux disease) K21.9 Syncopal episodes R55 (1) AV fistula occlusion Encounter type: initial encounter Qualified Code(s): T82.898A - Other specified complication of vascular prosthetic devices, implants and grafts, initial encounter
[2021-02-16] MEDS ORDERED: WARFARIN SOD 2.5 MG TAB PO ONE (16:00)
[2021-02-16] MEDS: WARFARIN SOD 2.5 MG TAB PO SCH (16:50)
[2021-02-16] MEDS: CARBOHYDRATES FOR HYPOGLYCEMIA PO PRN ×2 (20:58→21:21)
[2021-02-16] MEDS: ATORVASTATIN 20 MG TAB PO SCH (22:16)
[2021-02-16] MEDS: INSULIN GLARGINE SOLOSTAR 100 UNITS/ML 3 ML PEN SQ SCH (22:19)
[2021-02-17 06:29] LABS: Hematocrit (blood only) 26.5 % (37-47); Hemoglobin 8.6 g/dL (12.0-16.0); Mean Corpuscular Hemoglobin 32.3 pg (25-34); Mean Corpuscular Hgb Conc 32.5 g/dL (32-36); Mean Corpuscular Volume 99.6 fL (80-100); Mean Platelet Volume 10.4 fL (7.4-10.4); Platelet Count 142 K/uL (130-400); RDW Standard Deviation 53.4 fL (36.4-46.3); Red Blood Count 2.66 M/uL (4.2-5.4); White Blood Count 8.75 K/uL (4.8-10.8)
[2021-02-17 06:48] LABS: BUN Creatinine Ratio 23.8 (10-20); Calcium 8.5 mg/dl (8.5-10.1); Creatinine Clr Calc Pharmacy 15.3 ml/min; Est GFR (African American) 18.2 ml/min; Est GFR (Non-African American) 15.7 ml/min; Potassium 4.8 mmol/L (3.5-5.1)
[2021-02-17 06:57] LABS: INR 1.2 (0.9-1.1); Prothrombin Time 11.6 Seconds (9.0-12.0)
[2021-02-17 07:03] LABS: Partial Thromboplastin Time 53.2 Seconds (21.0-31.0)
--- NOTE | 2021-02-17 08:23 | Electrocardiogram Report ---
Test Reason : Blood Pressure : / mmHG Vent. Rate : 117 BPM Atrial Rate : 117 BPM P-R Int : 144 ms QRS Dur : 070 ms QT Int : 340 ms P-R-T Axes : 051 -14 005 degrees QTc Int : 474 ms Sinus tachycardia Voltage criteria for left ventricular hypertrophy Abnormal ECG When compared with ECG of 03-FEB-2021 09:11, No significant change was found Confirmed by Carlos Lim ([id number]) on 02/17/2021 8:23:00 AM Referred By: Phan Modidhruv Confirmed By:Carlos Lim
[2021-02-17] MEDS: CARBIDOPA/LEVODOP 10/100MG TAB PO SCH ×3 (08:43→21:24)
[2021-02-17] MEDS: PANCREAZE (LIPASE 10,500U) CAP PO SCH ×3 (08:44→17:05)
[2021-02-17] MEDS: CITALOPRAM 20 MG TAB PO SCH (08:44)
[2021-02-17] MEDS: METOCLOPRAMIDE HCL 10 MG TABLET PO SCH ×4 (08:44→21:24)
[2021-02-17] MEDS: FOLIC ACID 1 MG TAB PO SCH (08:45)
[2021-02-17] MEDS: hydrOXYzine HCl 10 MG TAB PO PRN (08:45)
[2021-02-17] MEDS: MIDODRINE HCL 2.5 MG TAB PO SCH ×3 (08:45→17:06)
[2021-02-17] MEDS: PANTOprazole 40 MG TAB PO SCH (08:45)
[2021-02-17] MEDS: INSULIN ASPART 100 UNITS/ML 3 ML PEN SC SCH ×4 (08:46→21:27)
[2021-02-17] MEDS ORDERED: BUMETANIDE 1 MG TAB PO SCH (09:00)
--- NOTE | 2021-02-17 09:49 | Hospitalist Progress Note ---
Date of Service February 17, 2021 Assessment & Plan (1) Syncopal episodes: Plan: Has had several, 10-second syncopal episodes here. Regains consciousness quickly and without any confusion afterward. No tonic-clonic behavior. No incontinence. - Likely vasovagal. These are often in the context of position changes or during hemodialysis. No major concern for seizure. - Orthostatics were negative on 02/16. - Hold Bumex as she is now running slightly hypovolemic. - Slow, careful transitions. Out of bed with assistance. Hemodialysis to manage her fluid balance (2) DVT (deep venous thrombosis): Plan: Doppler of the bilateral internal jugular veins on 02/10 showed "deep venous thrombus within the mid to distal left internal jugular vein which extends into the left subclavian vein." - Started heparin gtt on 02/10 - Started warfarin on 02/13 (waited 1 extra day due to anemia). Monitor INR. Will need to transition fully while in the hospital because given her poor kidney function, she cannot use Lovenox and no DOACs acceptable (after discussion with hematology and Dr. Shaw). - INR was 1.2 today. (3) Acute blood loss anemia: Plan: Hemoglobin ~8 - 9 baseline, likely due to chronic kidney disease and chronic disease. However, between surgery (for her tunneled-line on 02/11) and losing about 500 mL of blood in the dialysis machine on 02/11 when her line clotted, she dropped to 6.4 on 02/12. No melenic or bloody stools, no bruising, no abdominal pain to indicate RP bleed (or reason for an RP bleed) -> No signs of o ther bleeding. - Transfused 1 unit of PRBCs on 02/12 (4) AV fistula occlusion: Plan: AVF Duplex on admission showed occlusion of her LUE fistula. Likely occluded since HD session on Wednesday, 01/31. - Vascular surgery consulted -> Tunneled Permacath done on 02/11. - Had some bleeding at the site on 02/13 after an HD session. Used TXA-soaked gauze and paused heparin which stopped the bleeding nicely. Looks good on 02/16. (5) ESRD (end stage renal disease): Plan: Per patient, she follows with [facility] in [place]. Only gets HD on Wednesday and Fridays and continues to make urine. - CXR indicated volume overload on admission. - Discussed with nephrology -> HD on 02/15. Looked euvolemic to slightly dry, so she was run "even" on the HD machine. - Continue midodrine - Had been on Bumex 2 mg PO daily on admission (when she looked a bit hypervolemic). Stopped on 02/16 as she's looks a bit dry now with more frequent HD sessions. (6) COVID-19: Plan: Reports being diagnosed ~01/21/2021 with no symptoms at the time (routine SNF testing). A few days later, developed cough which has persisted. Otherwise, no symptoms. - Finished isolation precautions on 02/10 (7) Diabetes: Plan: A1c was 6.8% this admission. Does not know her regimen at [facility]. - Long-acting dropped to 15 units HS (from either 20 units, 25 units, or 45 units; it is unclear and patient doesn't know). - Sliding scale insulin -> Blood sugars low this morning. We had been tightening sliding scale, but I agreed to pharmacy increasing her glargine from 15 units to 25 units HS on 02/14 without realizing it. (My fault entirely here. Reading through [place] texts too quickly.) She had been fairly steady overnight, so I think the increase in glargine pushed her too low. Will drop her evening glargine back to 15 units HS. Will leave sliding scale alone as I think it is working acceptably well. (8) Parkinson disease: Plan: Presumed diagnosis. - Continue Sinemet (9) GERD (gastroesophageal reflux disease): Plan: - Continue PPI Dispo: Complex arrangement where she was at [facility] ([facility]) -> [facility] -> [facility] (due to her Covid infection) -> [facility]. She would like to explore SNFs closer to home. Note: She does not want her sister given updates and only wants us to call her brother "if we have to." Admission and Anticipated Discharge Date Admission Date: February 03, 2021 Subjective pt has no complaints or concerns, trying to coordinate outpt dialysis as did have her mwf scheduled changed to tts. there was a finging of b/l jugular vein thrombosis with some extension to subclavian vein Review of Systems Review of Systems: Mild distress and fatigue no headache, no visual changes no speech or swallowing issues no chest pain, pressure or palpitations improved shortness of breath, cough or wheezes no abdominal pain, nausea or vomiting, diarrhea or constipation no dysuria, hematuria or frequency no focal joint pain or swelling no back pain, CVA tenderness or radicular pain no bruising, bleeding or rashes no focal signs of weakness or numbness or altered sensation no complaints of anxiety or depression. Physical Exam Physical Exam: The patient appeared well nourished and normally developed. Vital signs as documented. Head exam is normocephalic atraumatic Neck is without JVD, thyromegaly, or carotid bruits. Lungs are clear to auscultation, no focal loss of breath sounds Cardiac exam, Rhythm is regular.. No murmurs, rubs or gallops. Abdominal exam reveals normal bowel sounds, soft non tender, no masses Extremities are nonedematous and both pedal pulses are present Neurologic exam is alert and oriented, no focal loss of strength or sensation Skin tunneled cath site is without bleeding Psychologically is without concerns for anxiety or depression Results & Data Results & Data ([facility]) Vital Signs (Past 12 Hours) Vital Signs Temp Pulse Pulse Resp BP Pulse Ox 02/17/21 07:30 98.1 F 116 H 20 137/62 92 02/16/21 23:30 98.2 F 112 H 16 135/67 92 PG Care Time/CCT Total # of Minutes Spent Total Time Spent with Patient: Total time spent is greater than 50% in coordination of care (as documented) at patient's floor/unit and/or counseling patient: Coding Level of Care Code 08130 Subseq Hosp Care Lvl 2 Diagnoses Syncopal episodes R55 DVT (deep venous thrombosis) I82.409 Acute blood loss anemia D62 AV fistula occlusion T82.898A Encounter type: initial encounter ESRD (end stage renal disease) N18.6 COVID-19 U07.1 Diabetes E11.9 Parkinson disease G20 GERD (gastroesophageal reflux disease) K21.9 (1) AV fistula occlusion Encounter type: initial encounter Qualified Code(s): T82.898A - Other specified complication of vascular prosthetic devices, implants and grafts, initial encounter
--- NOTE | 2021-02-17 11:54 | Nephrology Progress Note ---
Date of Service February 17, 2021 Assessment & Plan (1) ESRD (end stage renal disease): (2) DVT (deep venous thrombosis): (3) Anemia due to chronic kidney disease: (4) AV fistula occlusion: Plan: ESRD on HD MWF, admitted with nonfunctioning AV fistula and missed dialysis. Was also found to have him positive OB test, currently off of isolation. Had AV for tunneled dialysis catheter placement. She was also found to have deep venous thrombosis and central vein and started on heparin drip and had bleeding causing drop in hemoglobin, received blood transfusion. Catheter site bleeding stopped, hemoglobin stable. Currently blood pressure, electrolyte, acceptable. Has been having decent urine output. BP stable. -- Dialysis tomorrow as TTS schedule -- continued Nephrocaps and renal diet -- dose medications for GFR less than 10 -- Avoid IV fluid Will follow Admission and Anticipated Discharge Date Admission Date: February 03, 2021 Subjective Federica has been overall feeling well, denies any symptoms. Hemoglobin stable. Electrolyte acceptable. Volume status acceptable. Blood pressure well controlled Review of Systems Review of Systems: Detail ROS was otherwise unremarkable. Physical Exam Constitutional: well developed and well nourished; no acute distress Respiratory: normal respiratory effort, lungs clear to auscultation Cardiovascular: RRR, no murmur, no edema Neurologic: no focal motor deficits and not confused Psychiatric: A+Ox3, euthymic affect Results & Data ([facility]) Vital Signs (Past 12 Hours) Vital Signs Temp Pulse Resp BP Pulse Ox 02/17/21 07:30 36.7 C 116 H 20 137/62 92 PG Care Time/CCT Total # of Minutes Spent Total Time Spent with Patient: Total time spent is greater than 50% in coordination of care (as documented) at patient's floor/unit and/or counseling patient: Coding Level of Care Code 07017 Subseq Hosp Care Lvl 2 Diagnoses ESRD (end stage renal disease) N18.6 DVT (deep venous thrombosis) I82.409 Anemia due to chronic kidney disease N18.9; D63.1 AV fistula occlusion T82.898A Encounter type: initial encounter (1) AV fistula occlusion Encounter type: initial encounter Qualified Code(s): T82.898A - Other specified complication of vascular prosthetic devices, implants and grafts, initial encounter
[2021-02-17] MEDS: WARFARIN SOD 2.5 MG TAB PO SCH (15:27)
[2021-02-17] MEDS: HEPARIN SODIUM/DEXTROSE 25,000 UNITS/500 ML BAG IV SCH (17:28)
[2021-02-17] MEDS ORDERED: WARFARIN SOD 2.5 MG TAB PO ONE (18:42)
[2021-02-17] MEDS: ATORVASTATIN 20 MG TAB PO SCH (21:25)
[2021-02-17] MEDS: INSULIN GLARGINE SOLOSTAR 100 UNITS/ML 3 ML PEN SQ SCH (21:28)
[2021-02-18 07:17] LABS: Partial Thromboplastin Ratio 2.8
[2021-02-18 07:30] LABS: Partial Thromboplastin Time 73.8 Seconds (21.0-31.0)
[2021-02-18] MEDS: PANTOprazole 40 MG TAB PO SCH (09:02)
[2021-02-18] MEDS: PANCREAZE (LIPASE 10,500U) CAP PO SCH ×3 (09:02→16:48)
[2021-02-18] MEDS: METOCLOPRAMIDE HCL 10 MG TABLET PO SCH ×4 (09:02→21:08)
[2021-02-18] MEDS: FOLIC ACID 1 MG TAB PO SCH (09:02)
[2021-02-18] MEDS: CARBIDOPA/LEVODOP 10/100MG TAB PO SCH ×3 (09:03→21:08)
[2021-02-18] MEDS: MIDODRINE HCL 2.5 MG TAB PO SCH ×3 (09:03→16:48)
[2021-02-18] MEDS: CITALOPRAM 20 MG TAB PO SCH (09:03)
[2021-02-18] MEDS: INSULIN ASPART 100 UNITS/ML 3 ML PEN SC SCH ×4 (09:08→21:10)
[2021-02-18 09:39] LABS: INR 1.4 (0.9-1.1)
--- NOTE | 2021-02-18 12:06 | Nephrology Progress Note ---
Date of Service February 18, 2021 Assessment & Plan (1) ESRD (end stage renal disease): (2) DVT (deep venous thrombosis): (3) Anemia due to chronic kidney disease: (4) AV fistula occlusion: Plan: ESRD on HD MWF, admitted with nonfunctioning AV fistula and missed dialysis. Was also found to have him positive OB test, currently off of isolation. Had AV for tunneled dialysis catheter placement. She was also found to have deep venous thrombosis and central vein and started on heparin drip and had bleeding causing drop in hemoglobin, received blood transfusion. Catheter site bleeding stopped, hemoglobin stable. Currently blood pressure, electrolyte, acceptable. Has been having decent urine output. BP stable. Electrolyte acceptable. -- Dialysis today, as TTS schedule, minimum UF as blood pressure well controlled and no sign of volume overload. -- continued Nephrocaps and renal diet -- dose medications for GFR less than 10 -- Avoid IV fluid Will follow Admission and Anticipated Discharge Date Admission Date: February 03, 2021 Subjective Federica was seen this morning, clinically stable, no overnight events. She has been overall feeling well, denies any symptoms. Hemoglobin stable. Electrolyte acceptable. Volume status acceptable. Blood pressure well controlled Review of Systems Review of Systems: Detail ROS was otherwise unremarkable. Physical Exam Constitutional: well developed and well nourished; no acute distress Respiratory: normal respiratory effort, lungs clear to auscultation Cardiovascular: RRR, no murmur, no edema Neurologic: no focal motor deficits and not confused Psychiatric: A+Ox3, euthymic affect Results & Data ([facility]) Vital Signs (Past 12 Hours) Vital Signs Temp Pulse Resp BP Pulse Ox 02/18/21 07:11 36.5 C 112 H 16 118/62 94 PG Care Time/CCT Total # of Minutes Spent Total Time Spent with Patient: Total time spent is greater than 50% in coordination of care (as documented) at patient's floor/unit and/or counseling patient: Coding Level of Care Code 47723 Subseq Hosp Care Lvl 2 Diagnoses ESRD (end stage renal disease) N18.6 DVT (deep venous thrombosis) I82.409 Anemia due to chronic kidney disease N18.9; D63.1 AV fistula occlusion T82.898A Encounter type: initial encounter (1) AV fistula occlusion Encounter type: initial encounter Qualified Code(s): T82.898A - Other specified complication of vascular prosthetic devices, implants and grafts, initial encounter
[2021-02-18 14:45] LABS: Partial Thromboplastin Ratio 2.7
[2021-02-18 14:47] LABS: Partial Thromboplastin Time 71.1 Seconds (21.0-31.0)
[2021-02-18] MEDS: WARFARIN SOD 5 MG TAB PO SCH (16:47)
--- NOTE | 2021-02-18 18:46 | Hospitalist Progress Note ---
Date of Service February 18, 2021 Assessment & Plan (1) Syncopal episodes: Plan: Previously has had several, 10-second syncopal episodes here. Regains consciousness quickly and without any confusion afterward. No tonic-clonic behavior. No incontinence. - Likely vasovagal. These are often in the context of position changes or during hemodialysis. No major concern for seizure. - Orthostatics were negative on 02/16. - HoldING Bumex as she is now running slightly hypovolemic. - Slow, careful transitions. Out of bed with assistance. Hemodialysis to manage her fluid balance (2) DVT (deep venous thrombosis): Plan: Doppler of the bilateral internal jugular veins on 02/10 showed "deep venous thrombus within the mid to distal left internal jugular vein which extends into the left subclavian vein." - Started heparin gtt on 02/10 - Started warfarin on 02/13 (waited 1 extra day due to anemia). Monitor INR. Will need to transition fully while in the hospital because given her poor kidney function, she cannot use Lovenox and no DOACs acceptable (after discussion with hematology and Dr. Shaw). - INR was 1.4 today. (3) Acute blood loss anemia: Plan: Hemoglobin ~8 - 9 baseline, likely due to chronic kidney disease and chronic disease. However, between surgery (for her tunneled-line on 02/11) and losing about 500 mL of blood in the dialysis machine on 02/11 when her line clotted, she dropped to 6.4 on 02/12. No melenic or bloody stools, no bruising, no abdominal pain to indicate RP bleed (or reason for an RP bleed) -> No signs of other bleeding. - Transfused 1 unit of PRBCs on 02/12 (4) AV fistula occlusion: Plan: AVF Duplex on admission showed occlusion of her LUE fistula. Likely occluded since HD session on Wednesday, 01/31. - Vascular surgery consulted -> Tunneled Permacath done on 02/11. - Had some bleeding at the site on 02/13 after an HD session. Used TXA-soaked gauze and paused heparin which stopped the bleeding nicely. Looks good on 02/16. Heparin restarted no additional bleeding at the tunneled catheter site (5) ESRD (end stage renal disease): Plan: Per patient, she follows with [facility] in [place]. Only gets HD on Wednesday and Fridays and continues to make urine. - CXR indicated volume overload on admission. - Discussed with nephrology -> HD on 02/15. Looked euvolemic to slightly dry, so she was run "even" on the HD machine. - Continue midodrine - Had been on Bumex 2 mg PO daily on admission (when she looked a bit hypervolemic). Stopped on 02/16 as she's looks a bit dry now with more frequent HD sessions. (6) COVID-19: Plan: Reports being diagnosed ~01/21/2021 with no symptoms at the time (routine SNF testing). A few days later, developed cough which has persisted. Otherwise, no symptoms. - Finished isolation precautions on 02/10 (7) Diabetes: Plan: A1c was 6.8% this admission. Does not know her regimen at [facility]. - Long-acting dropped to 15 units HS (from either 20 units, 25 units, or 45 units; it is unclear and patient doesn't know). - Sliding scale insulin -> Blood sugars low this morning. We had been tightening sliding scale, but I agreed to pharmacy increasing her glargine from 15 units to 25 units HS on 02/14 without realizing it. (My fault entirely here. Reading through [place] texts too quickly.) She had been fairly steady overnight, so I think the increase in glargine pushed her too low. Will drop her evening glargine back to 15 units HS. Will leave sliding scale alone as I think it is working acceptably well. (8) Parkinson disease: Plan: Presumed diagnosis. - Continue Sinemet (9) GERD (gastroesophageal reflux disease): Plan: - Continue PPI Dispo: Complex arrangement where she was at [facility] ([facility]) -> [facility] -> [facility] (due to her Covid infection) -> [facility]. She would like to explore SNFs closer to home. Note: She does not want her sister given updates and only wants us to call her brother "if we have to." Admission and Anticipated Discharge Date Admission Date: February 03, 2021 Subjective Patient has no complaints or problems is being transitioned to warfarin therapy due to jugular and subclavian thrombosis INR still subtherapeutic. Overall looking to go alf facility closer to home as her disposition Review of Systems Review of Systems: Mild distress and fatigue no headache, no visual changes no speech or swallowing issues no chest pain, pressure or palpitations improved shortness of breath, cough or wheezes no abdominal pain, nausea or vomiting, diarrhea or constipation no dysuria, hematuria or frequency no focal joint pain or swelling no back pain, CVA tenderness or radicular pain no bruising, bleeding or rashes no focal signs of weakness or numbness or altered sensation no complaints of anxiety or depression. Physical Exam Physical Exam: The patient appeared well nourished and normally developed. Vital signs as documented. Head exam is normocephalic atraumatic Neck is without JVD, thyromegaly, or carotid bruits. Lungs are clear to auscultation, no focal loss of breath sounds Cardiac exam, Rhythm is regular.. No murmurs, rubs or gallops. Abdominal exam reveals normal bowel sounds, soft non tender, no masses Extremities are nonedematous and both pedal pulses are present Neurologic exam is alert and oriented, no focal loss of strength or sensation Skin tunneled cath site is without bleeding Psychologically is without concerns for anxiety or depression Results & Data Results & Data ([facility]) Vital Signs (Past 12 Hours) Vital Signs Temp Pulse Pulse Pulse Resp BP BP 02/18/21 16:54 97.5 F L 107 H 16 151/76 H 02/18/21 16:44 97.7 F 101 H 118/52 L 02/18/21 16:25 114 H 89/46 L 02/18/21 16:00 114 H 105/57 L 02/18/21 15:40 106 H 90/50 L 02/18/21 15:20 105 H 101/50 L 02/18/21 15:00 103 H 91/58 L 02/18/21 14:46 124 H 103/48 L 02/18/21 14:40 93 H 77/54 L 02/18/21 14:20 118 H 121/64 02/18/21 14:00 115 H 129/60 02/18/21 13:40 118 H 154/77 H 02/18/21 13:17 111 H 129/71 02/18/21 13:15 97.7 F 102 H 02/18/21 07:11 97.7 F 112 H 16 118/62 Pulse Ox 02/18/21 16:54 99 02/18/21 16:44 02/18/21 16:25 02/18/21 16:00 02/18/21 15:40 02/18/21 15:20 02/18/21 15:00 02/18/21 14:46 02/18/21 14:40 02/18/21 14:20 02/18/21 14:00 02/18/21 13:40 02/18/21 13:17 02/18/21 13:15 02/18/21 07:11 94 PG Care Time/CCT Total # of Minutes Spent Total Time Spent with Patient: Total time spent is greater than 50% in coordination of care (as documented) at patient's floor/unit and/or counseling patient: Coding Level of Care Code 07169 Subseq Hosp Care Lvl 2 Diagnoses Syncopal episodes R55 DVT (deep venous thrombosis) I82.409 Acute blood loss anemia D62 AV fistula occlusion T82.898A Encounter type: initial encounter ESRD (end stage renal disease) N18.6 COVID-19 U07.1 Diabetes E11.9 Parkinson disease G20 GERD (gastroesophageal reflux disease) K21.9 (1) AV fistula occlusion Encounter type: initial encounter Qualified Code(s): T82.898A - Other specified complication of vascular prosthetic devices, implants and grafts, initial encounter
[2021-02-18] MEDS ORDERED: TXA 10% Non-IV Routes 100 MG/ML VIAL TOP ONE (19:57)
[2021-02-18] MEDS: ATORVASTATIN 20 MG TAB PO SCH (21:08)
[2021-02-18] MEDS: INSULIN GLARGINE SOLOSTAR 100 UNITS/ML 3 ML PEN SQ SCH (21:11)
[2021-02-18 21:37] LABS: Partial Thromboplastin Time 79.7 Seconds (21.0-31.0)
[2021-02-18] MEDS: HYDROCORTISONE 2.5% CR 30 GM TUBE EXT PRN (21:51)
[2021-02-19] MEDS: HEPARIN SODIUM/DEXTROSE 25,000 UNITS/500 ML BAG IV SCH (02:54)
[2021-02-19 05:03] LABS: Basophils # (auto) 0.02 K/uL (0-0.2); Basophils % (auto) 0.3 %; Eosinophils # (auto) 0.64 K/uL (0-0.5); Eosinophils % (auto) 8.1 %; Hematocrit (blood only) 23.9 % (37-47); Hemoglobin 7.6 g/dL (12.0-16.0); Immature Granulocytes # (auto) 0.17 K/uL (0.00-0.02); Immature Granulocytes % (auto) 2.1 %; Lymphocytes # (auto) 1.18 K/uL (1.2-3.4); Lymphocytes % (auto) 14.8 %; Mean Corpuscular Hemoglobin 31.4 pg (25-34); Mean Corpuscular Hgb Conc 31.8 g/dL (32-36); Mean Corpuscular Volume 98.8 fL (80-100); Mean Platelet Volume 10.8 fL (7.4-10.4); Monocytes # (auto) 0.68 K/uL (0.11-0.59); Monocytes % (auto) 8.6 %; Neutrophils # (auto) 5.26 K/uL (1.4-6.5); Neutrophils % (auto) 66.1 %; Platelet Count 105 K/uL (130-400); RDW Coefficient of Variation 15.2 % (11.5-14.5); RDW Standard Deviation 54.5 fL (36.4-46.3); Red Blood Count 2.42 M/uL (4.2-5.4); White Blood Count 7.95 K/uL (4.8-10.8)
[2021-02-19 05:25] LABS: INR 1.5 (0.9-1.1); Partial Thromboplastin Ratio 2.4; Prothrombin Time 15.2 Seconds (9.0-12.0)
[2021-02-19 05:27] LABS: Partial Thromboplastin Time 62.9 Seconds (21.0-31.0)
[2021-02-19 05:34] LABS: Polychromasia 1+
[2021-02-19] MEDS: PANCREAZE (LIPASE 10,500U) CAP PO SCH ×3 (08:10→16:39)
[2021-02-19] MEDS: METOCLOPRAMIDE HCL 10 MG TABLET PO SCH ×4 (08:11→21:50)
[2021-02-19] MEDS: CARBIDOPA/LEVODOP 10/100MG TAB PO SCH ×3 (08:12→21:50)
[2021-02-19] MEDS: MIDODRINE HCL 2.5 MG TAB PO SCH ×3 (08:12→16:38)
[2021-02-19] MEDS: PANTOprazole 40 MG TAB PO SCH (08:12)
[2021-02-19] MEDS: CITALOPRAM 20 MG TAB PO SCH (08:12)
[2021-02-19] MEDS: FOLIC ACID 1 MG TAB PO SCH (08:12)
[2021-02-19] MEDS: INSULIN ASPART 100 UNITS/ML 3 ML PEN SC SCH ×4 (08:57→21:53)
--- NOTE | 2021-02-19 10:42 | Nephrology Progress Note ---
Date of Service February 19, 2021 Assessment & Plan (1) ESRD (end stage renal disease): (2) DVT (deep venous thrombosis): (3) Anemia due to chronic kidney disease: (4) AV fistula occlusion: Plan: ESRD on HD MWF, admitted with nonfunctioning AV fistula and missed dialysis. Was also found to have him positive OB test, currently off of isolation. Had AV for tunneled dialysis catheter placement. She was also found to have deep venous thrombosis and central vein and started on heparin drip and had bleeding causing drop in hemoglobin, received blood transfusion. Catheter site bleeding stopped, hemoglobin stable. Currently blood pressure, electrolyte, acceptable. Has been having decent urine output. BP stable. Electrolyte acceptable. -- Dialysis tomorrow, as TTS schedule, minimum UF as blood pressure well controlled and no sign of volume overload. -- continued Nephrocaps and renal diet -- dose medications for GFR less than 10 -- Avoid IV fluid Will follow Admission and Anticipated Discharge Date Admission Date: February 03, 2021 Subjective Federica was seen this morning, clinically stable. Had bleeding form TDC site again last night, dressing changed this am, now dry. She has been overall feeling well, denies any symptoms. Hemoglobin low. On heparin drip, INR 1.5. Electrolyte acceptable. Volume status acceptable. Blood pressure well controlled Review of Systems Review of Systems: Detail ROS was otherwise unremarkable. Physical Exam Constitutional: no acute distress Respiratory: normal respiratory effort, lungs clear to auscultation Cardiovascular: RRR, no murmur, no edema Neurologic: no focal motor deficits and not confused Psychiatric: A+Ox3, euthymic affect Results & Data ([facility]) Vital Signs (Past 12 Hours) Vital Signs Temp Pulse Resp BP Pulse Ox 02/19/21 07:15 36.6 C 100 H 18 135/68 92 02/19/21 05:01 36.4 C L 90 16 144/75 H 95 02/18/21 22:57 36.9 C 86 18 155/75 H 93 PG Care Time/CCT Total # of Minutes Spent Total Time Spent with Patient: Total time spent is greater than 50% in coordination of care (as documented) at patient's floor/unit and/or counseling patient: Coding Level of Care Code 54615 Subseq Hosp Care Lvl 2 Diagnoses ESRD (end stage renal disease) N18.6 DVT (deep venous thrombosis) I82.409 Anemia due to chronic kidney disease N18.9; D63.1 AV fistula occlusion T82.898A Encounter type: initial encounter (1) AV fistula occlusion Encounter type: initial encounter Qualified Code(s): T82.898A - Other specified complication of vascular prosthetic devices, implants and grafts, initial encounter
--- NOTE | 2021-02-19 14:59 | Hospitalist Progress Note ---
Date of Service February 19, 2021 Assessment & Plan (1) Syncopal episodes: Plan: Previously has had several, 10-second syncopal episodes here. No suspicion of seizures - Likely vasovagal. These are often in the context of position changes or during hemodialysis. No major concern for seizure. - Orthostatics were negative on 02/16. - continue to hold Bumex as she is now running slightly hypovolemic. - Slow, careful transitions. Out of bed with assistance. Hemodialysis to manage her fluid balance (2) DVT (deep venous thrombosis): Plan: Doppler of the bilateral internal jugular veins on 02/10 showed "deep venous thrombus within the mid to distal left internal jugular vein which extends into the left subclavian vein." - Started heparin gtt on 02/10 - Started warfarin on 02/13 (waited 1 extra day due to anemia). Monitor INR. Will need to transition fully while in the hospital because given her poor kidney function, she cannot use Lovenox and no DOACs acceptable (after discussion with hematology and Dr. Shaw). - INR was 1.5 today. (3) Acute blood loss anemia: Plan: Hemoglobin ~8 - 9 baseline, likely due to chronic kidney disease and chronic disease. However, between surgery (for her tunneled-line on 02/11) and losing about 500 mL of blood in the dialysis machine on 02/11 when her line clotted, she dropped to 6.4 on 02/12. No melenic or bloody stools, no bruising, no abdominal pain to indicate RP bleed (or reason for an RP bleed) -> No signs of other bleeding. - Transfused 1 unit of PRBCs on 02/12 hgb now in the 7.6 gm range, likely due to renal disease will recheck and if lower may give another unit (4) AV fistula occlusion: Plan: AVF Duplex on admission showed occlusion of her LUE fistula. Likely occluded since HD session on Wednesday, 01/31. - Vascular surgery consulted -> Tunneled Permacath done on 02/11. - Had some bleeding at the site on 02/13 after an HD session. Used TXA-soaked gauze and paused heparin which stopped the bleeding nicely. Looks good on 02/16. Heparin/coimadin restarted no additional bleeding at the tunneled catheter site (5) ESRD (end stage renal disease): Plan: Per patient, she follows with [facility] in [place]. Only gets HD on Wednesday and Fridays and continues to make urine. - CXR indicated volume overload on admission. - Discussed with nephrology -> continue to dialyse - Continue midodrine - Had been on Bumex 2 mg PO daily on admission (when she looked a bit hypervolemic). Stopped on 02/16 as she's looks a bit dry now with more frequent HD sessions. (6) COVID-19: Plan: Reports being diagnosed ~01/21/2021 with no symptoms at the time (routine SNF testing). A few days later, developed cough which has persisted. Otherwise, no symptoms. - Finished isolation precautions on 02/10 (7) Diabetes: Plan: A1c was 6.8% this admission. Does not know her regimen at [facility]. - Long-acting dropped to 15 units HS (from either 20 units, 25 units, or 45 units; it is unclear and patient doesn't know). - Sliding scale insulin -> Blood sugars low this morning. We had been tightening sliding scale, Glycemic management consult in place (8) Parkinson disease: Plan: Presumed diagnosis. - Continue Sinemet (9) GERD (gastroesophageal reflux disease): Plan: - Continue PPI Dispo: Complex arrangement where she was at [facility] ([facility]) -> [facility] -> [facility] (due to her Covid infection) -> [facility]. She would like to explore SNFs closer to home. Note: She does not want her sister given updates and only wants us to call her brother "if we have to." Admission and Anticipated Discharge Date Admission Date: February 03, 2021 Subjective pt states she is getting "stir crazy" from being here, did have a drop in hgb but maybe just re equilibration from initial bleeding, no other obvious source of bleeding at present, hgb is in the 7's and we are slowly allowing inr to increase Review of Systems Review of Systems: Mild distress and fatigue no headache, no visual changes no speech or swallowing issues no chest pain, pressure or palpitations improved shortness of breath, cough or wheezes no abdominal pain, nausea or vomiting, diarrhea or constipation no dysuria, hematuria or frequency no focal joint pain or swelling no back pain, CVA tenderness or radicular pain no bruising, bleeding or rashes no focal signs of weakness or numbness or altered sensation no complaints of anxiety or depression. Physical Exam Physical Exam: The patient appeared well nourished and normally developed. Vital signs as documented. Head exam is normocephalic atraumatic Neck is without JVD, thyromegaly, or carotid bruits. tunnel cath site is not bleeding at present Lungs are clear to auscultation, no focal loss of breath sounds Cardiac exam, Rhythm is regular.. No murmurs, rubs or gallops. Abdominal exam reveals normal bowel sounds, soft non tender, no masses Extremities are nonedematous and both pedal pulses are present Neurologic exam is alert and oriented, no focal loss of strength or sensation Skin tunneled cath site is without bleeding Psychologically is without concerns for anxiety or depression Results & Data Results & Data ([facility]) Vital Signs (Past 12 Hours) Vital Signs Temp Pulse Resp BP Pulse Ox 02/19/21 07:15 97.9 F 100 H 18 135/68 92 02/19/21 05:01 97.5 F L 90 16 144/75 H 95 PG Care Time/CCT Total # of Minutes Spent Total Time Spent with Patient: Total time spent is greater than 50% in coordination of care (as documented) at patient's floor/unit and/or counseling patient: Coding Level of Care Code 13654 Subseq Hosp Care Lvl 2 Diagnoses Syncopal episodes R55 DVT (deep venous thrombosis) I82.409 Acute blood loss anemia D62 AV fistula occlusion T82.898A Encounter type: initial encounter ESRD (end stage renal disease) N18.6 COVID-19 U07.1 Diabetes E11.9 Parkinson disease G20 GERD (gastroesophageal reflux disease) K21.9 (1) AV fistula occlusion Encounter type: initial encounter Qualified Code(s): T82.898A - Other specified complication of vascular prosthetic devices, implants and grafts, initial encounter
[2021-02-19] MEDS: WARFARIN SOD 5 MG TAB PO SCH (16:41)
[2021-02-19] MEDS: ATORVASTATIN 20 MG TAB PO SCH (21:50)
[2021-02-19] MEDS: INSULIN GLARGINE SOLOSTAR 100 UNITS/ML 3 ML PEN SQ SCH (21:50)
[2021-02-19] MEDS: hydrOXYzine HCl 10 MG TAB PO PRN (21:53)
[2021-02-20 06:09] LABS: Hematocrit (blood only) 23.3 % (37-47); Hemoglobin 7.6 g/dL (12.0-16.0); Mean Corpuscular Hemoglobin 32.1 pg (25-34); Mean Corpuscular Hgb Conc 32.6 g/dL (32-36); Mean Corpuscular Volume 98.3 fL (80-100); RDW Coefficient of Variation 15.2 % (11.5-14.5); RDW Standard Deviation 53.9 fL (36.4-46.3); Red Blood Count 2.37 M/uL (4.2-5.4); White Blood Count 8.25 K/uL (4.8-10.8)
[2021-02-20 06:29] LABS: INR 1.8 (0.9-1.1); Partial Thromboplastin Ratio 2.6; Prothrombin Time 17.7 Seconds (9.0-12.0)
[2021-02-20 06:30] LABS: Partial Thromboplastin Time 67.3 Seconds (21.0-31.0)
[2021-02-20 06:35] LABS: Albumin Level 2.3 gm/dl (3.4-5.0); BUN Creatinine Ratio 25.2 (10-20); Calcium 8.1 mg/dl (8.5-10.1); Creatinine Clr Calc Pharmacy 18.2 ml/min; Est GFR (African American) 22.5 ml/min; Est GFR (Non-African American) 19.4 ml/min; Potassium 4.4 mmol/L (3.5-5.1)
[2021-02-20 06:41] LABS: Mean Platelet Volume 10.2 fL (7.4-10.4); Platelet Count 97 K/uL (130-400)
[2021-02-20 06:42] LABS: Platelet Estimate Decreased (Normal)
[2021-02-20] MEDS: PANCREAZE (LIPASE 10,500U) CAP PO SCH ×3 (08:59→16:11)
[2021-02-20] MEDS: CARBIDOPA/LEVODOP 10/100MG TAB PO SCH ×3 (08:59→20:55)
[2021-02-20] MEDS: FOLIC ACID 1 MG TAB PO SCH (08:59)
[2021-02-20] MEDS: METOCLOPRAMIDE HCL 10 MG TABLET PO SCH ×4 (08:59→20:56)
[2021-02-20] MEDS: PANTOprazole 40 MG TAB PO SCH (08:59)
[2021-02-20] MEDS: CITALOPRAM 20 MG TAB PO SCH (08:59)
[2021-02-20] MEDS: MIDODRINE HCL 2.5 MG TAB PO SCH ×3 (09:00→16:11)
[2021-02-20] MEDS: INSULIN ASPART 100 UNITS/ML 3 ML PEN SC SCH ×4 (09:02→20:59)
--- NOTE | 2021-02-20 10:35 | Nephrology Progress Note ---
Date of Service February 20, 2021 Assessment & Plan (1) ESRD (end stage renal disease): (2) DVT (deep venous thrombosis): (3) Anemia due to chronic kidney disease: (4) AV fistula occlusion: Plan: ESRD on HD MWF, admitted with nonfunctioning AV fistula and missed dialysis. Was also found to have him positive OB test, currently off of isolation. Had AV for tunneled dialysis catheter placement. She was also found to have deep venous thrombosis and central vein and started on heparin drip and had bleeding causing drop in hemoglobin, received blood transfusion. Catheter site bleeding stopped, hemoglobin stable. Currently blood pressure, electrolyte, acceptable. Has been having decent urine output. BP stable. Electrolyte acceptable. -- Dialysis tomorrow, minimum UF as blood pressure well controlled and no sign of volume overload. -- continued Nephrocaps and renal diet -- dose medications for GFR less than 10 -- Avoid IV fluid Will follow Admission and Anticipated Discharge Date Admission Date: February 03, 2021 Subjective Federica was seen this morning, clinically stable. Bleeding form TDC site stopped, dressing dry. She has been overall feeling well, denies any symptoms. Hemoglobin low. On heparin drip, INR improved to 1.8. Electrolyte acceptable. Volume status acceptable. Blood pressure well controlled. Review of Systems Review of Systems: Detail ROS was otherwise unremarkable. Physical Exam Physical Exam: direct physical exam was not done today because of COVID isolation status. Constitutional: WD/WN, vitals as above + ill appearing; no acute distress ENMT: Ears: no hearing impairment Neck: trachea midline Respiratory: Auscultation: + diminished lung sounds; no crackles and no wheezes Cardiovascular: RRR, no murmur, no edema Extremities: + AV fistula (left BC AVF with no thrill or bruit.) Musculoskeletal: Extremities: extremities normal to inspection Skin: no rashes, warm and dry Neurologic: no focal motor deficits and not confused Psychiatric: A+Ox3, euthymic affect Results & Data ([facility]) Vital Signs (Past 12 Hours) Vital Signs Temp Pulse Resp BP Pulse Ox 02/20/21 08:58 111 H 127/68 02/20/21 07:16 36.4 C L 99 H 18 151/68 H 93 02/19/21 22:35 36.6 C 86 17 114/62 98 PG Care Time/CCT Total # of Minutes Spent Total Time Spent with Patient: Total time spent is greater than 50% in coordination of care (as documented) at patient's floor/unit and/or counseling patient: Coding Level of Care Code 81246 Subseq Hosp Care Lvl 2 Diagnoses ESRD (end stage renal disease) N18.6 DVT (deep venous thrombosis) I82.409 Anemia due to chronic kidney disease N18.9; D63.1 AV fistula occlusion T82.898A Encounter type: initial encounter (1) AV fistula occlusion Encounter type: initial encounter Qualified Code(s): T82.898A - Other specified complication of vascular prosthetic devices, implants and grafts, initial encounter
[2021-02-20 13:24] LABS: Partial Thromboplastin Ratio 2.1
[2021-02-20 13:46] LABS: Partial Thromboplastin Time 56.5 Seconds (21.0-31.0)
[2021-02-20] MEDS: HEPARIN SODIUM/DEXTROSE 25,000 UNITS/500 ML BAG IV SCH ×2 (14:34→14:39)
[2021-02-20] MEDS: WARFARIN SOD 5 MG TAB PO SCH (16:11)
[2021-02-20] MEDS: hydrOXYzine HCl 10 MG TAB PO PRN (16:12)
[2021-02-20] MEDS ORDERED: PHARMACY GLYCEMIC MGMT CONSULT PRN (17:14)
[2021-02-20] MEDS: ATORVASTATIN 20 MG TAB PO SCH (20:55)
[2021-02-20] MEDS: INSULIN GLARGINE SOLOSTAR 100 UNITS/ML 3 ML PEN SQ SCH (20:56)
--- NOTE | 2021-02-20 21:19 | Hospitalist Progress Note ---
Date of Service February 20, 2021 Assessment & Plan (1) Syncopal episodes: Plan: Previously has had several, 10-second syncopal episodes here. No suspicion of seizures - Likely vasovagal. These are often in the context of position changes or during hemodialysis. No major concern for seizure. - Orthostatics were negative on 02/16. - continue to hold Bumex as she is now running slightly hypovolemic. - Slow, careful transitions. Out of bed with assistance. Hemodialysis to manage her fluid balance (2) DVT (deep venous thrombosis): Plan: Doppler of the bilateral internal jugular veins on 02/10 showed "deep venous thrombus within the mid to distal left internal jugular vein which extends into the left subclavian vein." - Started heparin gtt on 02/10 - Started warfarin on 02/13 (waited 1 extra day due to anemia). Monitor INR. Will need to transition fully while in the hospital because given her poor kidney function, she cannot use Lovenox and no DOACs acceptable (after discussion with hematology and Dr. Shaw). - INR was 1.8 today. Heparin drip discontinued the evening of 02/20 expecting the INR to continue to creep forward (3) Acute blood loss anemia: Plan: Hemoglobin ~8 - 9 baseline, likely due to chronic kidney disease and chronic disease. However, between surgery (for her tunneled-line on 02/11) and losing about 500 mL of blood in the dialysis machine on 02/11 when her line clotted, she dropped to 6.4 on 02/12. No melenic or bloody stools, no bruising, no abdominal pain to indicate RP bleed (or reason for an RP bleed) -> No signs of other bleeding. - Transfused 1 unit of PRBCs on 02/12 hgb now in the 7.6 gm range, likely due to renal disease Checking iron and TIBC in the morning of 02/21 (4) AV fistula occlusion: Plan: AVF Duplex on admission showed occlusion of her LUE fistula. Likely occluded since HD session on Wednesday, 01/31. - Vascular surgery consulted -> Tunneled Permacath done on 02/11. - Had some bleeding at the site on 02/13 after an HD session. Used TXA-soaked gauze and paused heparin which stopped the bleeding nicely. Looks good on 02/16. no additional bleeding at the tunneled catheter site (5) ESRD (end stage renal disease): Plan: Per patient, she follows with [facility] in [place]. Only gets HD on Wednesday and Fridays and continues to make urine. - CXR indicated volume overload on admission. - Discussed with nephrology -> continue to dialyse - Continue midodrine - Had been on Bumex 2 mg PO daily on admission (when she looked a bit hypervolemic). Stopped on 02/16 as she's looks a bit dry now with more frequent HD sessions. (6) COVID-19: Plan: Reports being diagnosed ~01/21/2021 with no symptoms at the time (routine SNF testing). A few days later, developed cough which has persisted. Otherwise, no symptoms. - Finished isolation precautions on 02/10 (7) Diabetes: Plan: A1c was 6.8% this admission. Does not know her regimen at [facility]. - Long-acting dropped to 15 units HS (from either 20 units, 25 units, or 45 units; it is unclear and patient doesn't know). - Sliding scale insulin -> Blood sugars low this morning. We had been tightening sliding scale, Glycemic management consult in place (8) Parkinson disease: Plan: Presumed diagnosis. - Continue Sinemet (9) GERD (gastroesophageal reflux disease): Plan: - Continue PPI Dispo: Complex arrangement where she was at [facility] -> [facility] -> [facility] (due to her Covid infection) -> [facility]. She would like to explore SNFs closer to home. Note: She does not want her sister given updates and only wants us to call her brother "if we have to." Admission and Anticipated Discharge Date Admission Date: February 03, 2021 Subjective Federica was seen this morning, clinically stable. Despite being escalated anticoagulation her hemoglobin low. This is felt to be attributed to from her anemia of chronic disease from renal failure. Previously was on heparin drip, INR improved to 1.8. Now moving to just Coumadin heparin drip discontinued the evening of 02/20/2021. Electrolyte acceptable. Volume status acceptable. Blood pressure well controlled. Review of Systems Review of Systems: Mild distress and fatigue no headache, no visual changes no speech or swallowing issues no chest pain, pressure or palpitations improved shortness of breath, cough or wheezes no abdominal pain, nausea or vomiting, diarrhea or constipation no dysuria, hematuria or frequency no focal joint pain or swelling no back pain, CVA tenderness or radicular pain no bruising, bleeding or rashes no focal signs of weakness or numbness or altered sensation no complaints of anxiety or depression. Physical Exam Physical Exam: The patient appeared well nourished and normally developed. Vital signs as documented. Head exam is normocephalic atraumatic Neck is without JVD, thyromegaly, or carotid bruits. tunnel cath site is not bleeding at present Lungs are clear to auscultation, no focal loss of breath sounds Cardiac exam, Rhythm is regular.. No murmurs, rubs or gallops. Abdominal exam reveals normal bowel sounds, soft non tender, no masses Extremities are nonedematous and both pedal pulses are present Neurologic exam is alert and oriented, no focal loss of strength or sensation Skin tunneled cath site is without bleeding Psychologically is without concerns for anxiety or depression Results & Data Results & Data ([facility]) Vital Signs (Past 12 Hours) Vital Signs Temp Pulse Resp BP Pulse Ox 02/20/21 15:20 98.2 F 87 16 132/66 96 PG Care Time/CCT Total # of Minutes Spent Total Time Spent with Patient: Total time spent is greater than 50% in coordination of care (as documented) at patient's floor/unit and/or counseling patient: Coding Level of Care Code 84568 Subseq Hosp Care Lvl 2 Diagnoses Syncopal episodes R55 DVT (deep venous thrombosis) I82.409 Acute blood loss anemia D62 AV fistula occlusion T82.898A Encounter type: initial encounter ESRD (end stage renal disease) N18.6 COVID-19 U07.1 Diabetes E11.9 Parkinson disease G20 GERD (gastroesophageal reflux disease) K21.9 (1) AV fistula occlusion Encounter type: initial encounter Qualified Code(s): T82.898A - Other specified complication of vascular prosthetic devices, implants and grafts, initial encounter
[2021-02-21] MEDS: INSULIN ASPART 100 UNITS/ML 3 ML PEN SC SCH ×6 (04:03→21:54)
[2021-02-21 08:10] LABS: Hematocrit (blood only) 23.8 % (37-47); Hemoglobin 7.7 g/dL (12.0-16.0); Mean Corpuscular Hemoglobin 31.8 pg (25-34); Mean Corpuscular Hgb Conc 32.4 g/dL (32-36); Mean Corpuscular Volume 98.3 fL (80-100); Mean Platelet Volume 10.5 fL (7.4-10.4); Platelet Count 103 K/uL (130-400); RDW Standard Deviation 53.7 fL (36.4-46.3); Red Blood Count 2.42 M/uL (4.2-5.4); White Blood Count 6.97 K/uL (4.8-10.8)
[2021-02-21] MEDS: PANTOprazole 40 MG TAB PO SCH (08:16)
[2021-02-21] MEDS: PANCREAZE (LIPASE 10,500U) CAP PO SCH ×3 (08:16→18:13)
[2021-02-21] MEDS: CARBIDOPA/LEVODOP 10/100MG TAB PO SCH ×3 (08:16→20:14)
[2021-02-21] MEDS: MIDODRINE HCL 2.5 MG TAB PO SCH ×3 (08:17→18:13)
[2021-02-21] MEDS: CITALOPRAM 20 MG TAB PO SCH (08:17)
[2021-02-21] MEDS: FOLIC ACID 1 MG TAB PO SCH (08:17)
[2021-02-21] MEDS: METOCLOPRAMIDE HCL 10 MG TABLET PO SCH ×4 (08:17→20:14)
[2021-02-21 08:20] LABS: INR 1.7 (0.9-1.1); Prothrombin Time 16.8 Seconds (9.0-12.0)
[2021-02-21 08:41] LABS: BUN Creatinine Ratio 27.4 (10-20); Calcium 8.7 mg/dl (8.5-10.1); Creatinine Clr Calc Pharmacy 15.7 ml/min; Est GFR (African American) 18.8 ml/min; Est GFR (Non-African American) 16.2 ml/min; Potassium 4.4 mmol/L (3.5-5.1)
--- NOTE | 2021-02-21 10:10 | Nephrology Progress Note ---
Date of Service February 21, 2021 Assessment & Plan (1) ESRD (end stage renal disease): (2) DVT (deep venous thrombosis): (3) Anemia due to chronic kidney disease: (4) AV fistula occlusion: Plan: ESRD on HD MWF, admitted with nonfunctioning AV fistula and missed dialysis. Was also found to have him positive OB test, currently off of isolation. Had AV for tunneled dialysis catheter placement. She was also found to have deep venous thrombosis and central vein and started on heparin drip and had bleeding causing drop in hemoglobin, received blood transfusion. Catheter site bleeding stopped, hemoglobin stable. Currently blood pressure, electrolyte, acceptable. Has been having decent urine output. BP stable. Electrolyte acceptable. -- Getting dialysis now as her regular schedule although no sign of volume overload, electrolyte has been acceptable. -- continued Nephrocaps and renal diet -- dose medications for GFR less than 10 -- Avoid IV fluid Will follow Admission and Anticipated Discharge Date Admission Date: February 03, 2021 Subjective Federica was seen during dialysis this morning, she has been tolerating dialysis although she has been tachycardic, blood pressure relatively stable. Tolerating minimum UF, denies any specific symptoms. Review of Systems Review of Systems: Detail ROS was otherwise unremarkable. Physical Exam Constitutional: + frail appearing; no acute distress Respiratory: normal respiratory effort, lungs clear to auscultation Cardiovascular: RRR, no murmur, no edema Neurologic: no focal motor deficits and not confused Psychiatric: A+Ox3, euthymic affect Results & Data ([facility]) Vital Signs (Past 12 Hours) Vital Signs Temp Pulse Pulse Resp BP Pulse Ox 02/21/21 08:08 100 H 137/61 02/21/21 07:35 36.7 C 95 H 18 159/77 H 96 02/20/21 22:12 36.7 C 99 H 18 128/62 95 PG Care Time/CCT Total # of Minutes Spent Total Time Spent with Patient: Total time spent is greater than 50% in coordination of care (as documented) at patient's floor/unit and/or counseling patient: Coding Level of Care Code 52316 Subseq Hosp Care Lvl 2 Diagnoses ESRD (end stage renal disease) N18.6 DVT (deep venous thrombosis) I82.409 Anemia due to chronic kidney disease N18.9; D63.1 AV fistula occlusion T82.898A Encounter type: initial encounter (1) AV fistula occlusion Encounter type: initial encounter Qualified Code(s): T82.898A - Other specified complication of vascular prosthetic devices, implants and grafts, initial encounter
--- NOTE | 2021-02-21 11:03 | Pharmacy Report ---
Pharmacy Glycemic Short Note 2 - Date of Service February 21, 2021 - Glycemic Short BSG Results (Last 24 hours): 02/20/21 02/20/21 02/20/21 12:01 17:04 17:06 Glucose POC Glucose 269 H 329 H* 316 H* 02/20/21 02/20/21 02/20/21 17:35 20:23 23:51 Glucose POC Glucose 312 H* 107 H 70 02/21/21 02/21/21 02/21/21 04:00 07:32 07:44 Glucose 136 H POC Glucose 132 H 143 H OUTPATIENT ANTIDIABETIC REGIMEN: * Lantus 25 units SQ HS * Humalog per scale * A1c = 6.8% on 02/04/21 * However, this result is likely somewhat unreliable in ESRD patients d/t interactions between the A1c analyzing technique and high levels of urea in ESRD, reduced RBC life span, iron deficiency anemia, and EPO administration. HbA1c > 7.5% in ESRD patient may overestimate the extent of hyperglycemia in ESRD patients. ASSESSMENT: * Hyperglycemia last night prior to dinner for unknown reason; may have no had adequate CHO coverage at lunch vs dextrose containing dialysate? * Hyperglycemia resolved with current CF/CR scale; BSG 312 --> 107 mg/dl with 26 units of NovoLog. * AM fasting BSG is in goal range with reduced outpatient insulin dosing. * No changes needed at this time. PLAN FOR INPATIENT GLYCEMIC CONTROL: * Basal insulin * Lantus 15 units SQ HS * Bolus insulin * NovoLog per scale ACHS or Q6hrs while NPO * Goal Range: Low 100 mg/dL - High 140 mg/dL * Correction Factor: 12 mg/dL/unit * Nutritional / Prandial insulin per carb ratio of 1 unit per 5 grams CHO consumed PLAN FOR DISCHARGE: * No changes needed at DC
[2021-02-21] MEDS ORDERED: EPOETIN ALFA 20,000 UNITS/ML VIAL IV STA (12:08)
--- NOTE | 2021-02-21 13:27 | Hospitalist Progress Note ---
Date of Service February 21, 2021 Assessment & Plan (1) Syncopal episodes: Plan: * Previously has had several, 10-second syncopal episodes here. No suspicion of seizures * Thought to be related to the fact that her hemodialysis had been increased. Bumex has since been stopped. Patient remains euvolemic (with nephrology managing hemodialysis sessions) * Orthostatics were negative on 02/16. * Slow, careful transitions. Out of bed with assistance. Hemodialysis to manage her fluid balance (2) DVT (deep venous thrombosis): Plan: * Doppler of the bilateral internal jugular veins on 02/10 showed deep venous thrombus within the mid to distal left internal jugular vein which extends into the left subclavian vein. * Started heparin gtt on 02/10 (which was stopped lastnight with presumption that her INR would be therapeutic) * Started warfarin on 02/13 (waited 1 extra day due to anemia). Monitor INR. Will need to transition fully while in the hospital because given her poor kidney function, she cannot use Lovenox and no DOACs acceptable (after di scussion with hematology and Dr. Shaw). * INR was 1.7 today (1.8 yesterday). * restart heparin Gtt (bridge until INR therapeutic) * had been on Coumadin 5mg daily (with subtherapeutic INR). Will increased to 7.5mg with FU INR to trend. (3) Acute blood loss anemia: Plan: * Hemoglobin ~8 - 9 baseline, likely due to chronic kidney disease and chronic disease. However, between surgery (for her tunneled-line on 02/11) and losing about 500 mL of blood in the dialysis machine on 02/11 when her line clotted, she dropped to 6.4 on 02/12. No melenic or bloody stools, no bruising, no abdominal pain to indicate RP bleed (or reason for an RP bleed) -> No signs of other bleeding. * Transfused 1 unit of PRBCs on 02/12 * Procrit given on 02/11 and 02/13. I have reached out to Nephro regarding continued doses. Per Nephro, they will order if necessary * iron level was ordered and normal (4) AV fistula occlusion: Plan: * AVF Duplex on admission showed occlusion of her LUE fistula. Likely occluded since HD session on 01/31. * Vascular surgery on board -> Tunneled Permacath done on 02/11. * had some bleeding at the site on 02/13 after an HD session. Used TXA-soaked gauze and paused heparin which stopped the bleeding nicely. Looked good on 02/16. no bleeding since * plan is for new Fistula as an OP (5) ESRD (end stage renal disease): Plan: * Per patient, she follows with [facility] in [place]. * dialysis increased from twice a week to 3x/week. Tolerating this well * Continue midodrine * Had been on Bumex 2 mg PO daily on admission (when she looked a bit hypervolemic). Stopped on 02/16 as she's looks a bit dry now with more frequent HD sessions. (6) COVID-19: Plan: Reports being diagnosed ~01/21/2021 with no symptoms at the time (routine SNF testing). A few days later, developed cough which has persisted. Otherwise, no symptoms. - Finished isolation precautions on 02/10 (7) Diabetes: Plan: A1c was 6.8% this admission. Does not know her regimen at [facility]. - Long-acting dropped to 15 units HS (from either 20 units, 25 units, or 45 units; it is unclear and patient doesn't know). - Sliding scale insulin -> Blood sugars low this morning. We had been tightening sliding scale, Glycemic management consult in place (8) Parkinson disease: Plan: Presumed diagnosis. - Continue Sinemet (9) GERD (gastroesophageal reflux disease): Plan: - Continue PPI Dispo: Complex arrangement where she was at [facility] -> [facility] -> [facility] (due to her Covid infection) -> [facility]. Plan is for D/C back to with additional services (home PT/OT and VN): likely on 02/22 pending continued stability Note: She does not want her sister given updates and only wants us to call her brother "if we have to." Plan: plan of care will be D/W Dr. Grady Admission and Anticipated Discharge Date Admission Date: February 03, 2021 Supervising Physician Co-Signing Physician Notes Attending Attestation: Chart reviewed in detail, care plan d/w KRISH Boone. I agree w/ the morales components of her documentation. Pt needs 2 days of overlap therapy with heparin/coumadin once INR is consistently >2. Echo ordered due to loud systolic murmur. Anemia - consider checking b12/folate/ferritin (although transferrin sat was 30% recently). Daily CBC. Nearing transfusion threshold again. Recent syncopal episodes - consider CTA chest to r/o PEs. Also, with subclavian stenosis, could she have subclavian steal phenomenon? Could d/w vascular their opinion. Jerome Grady MD Subjective Patient seen on daily rounds today. She is a 70-year-old white female with a past medical history of end-stage renal disease on dialysis, anemia of chronic disease, IDDM, and GERD. She has had a lengthy hospital course. Admitted 02/03 from [facility] where she was found to have shortness of breath hypoxemia. Pulse ox in the 70s. Patient had prior been diagnosed with Covid on 01/21 but not terribly symptomatic. On 01/31 (3 days [employer]), dialysis missed given flow issues with fistula. Work-up in the ED did show pulmonary vascular congestion. In addition, she was found to have an occluded fistula. Vascular on board and patient is now s/p permacath insertion (Right IJ) with plan for new AV fistula as an outpatient. Nephrology has been on board and dialysis is now 3 times a week (MWF) order as was twice a week (M/F) prior to this hospitalization Inadvertently, during this hospitalization--patient found to have a DVT in the mid distal internal jugular vein to subclavian in addition to an occlusive DVT within the left subclavian vein. She is currently on a heparin drip for bridge therapy following addition of Coumadin. Patient has received Coumadin 5 mg daily X 5 days. Most recent INR is 1.7. Patient does have chronic anemia. Hemoglobin runs 8-9. Was 6.4 on 02/12 for which patient received 1 unit PRBCs. Nephrology on board and patient has received Epogen on 02/11 and 02/13. Last, patient did develop recurrent syncopal events which seemed to be positional. It was thought to be related to overdiuresis (Bumex stopped given increase in dialysis sessions per week) Today, patient is back following her dialysis session. She voices no complaints or concerns. Denies fevers, chills, chest pain, shortness of breath, abdominal pain, nausea or vomiting. Denies dizziness/lightheadedness. Initial plan was for placement to longterm facility; however, patient hopeful to go back to personal care with additional therapy services there. Currently, she is able to ambulate approximately 15 feet with her wheeled walker. She is a contact guard. Her 6 click score is 19. Review of Systems Review of Systems: All systems reviewed and are unremarkable except as noted in HPI and below Denies dizziness, lightheadedness, fevers, chills, headache, nasal congestion, sore throat, cough, chest pain, shortness of breath, abdominal pain, nausea, vomiting, dysuria, hematuria, frequency, skin lesions or rashes. Physical Exam Physical Exam: General: Resting comfortably in her hospital bed. Appears chronically but not acutely ill. NAD. Neck: Difficult to assess for JVD given permacath in right IJ Cardiac: RRR with 3/6 holosystolic murmur Lungs: CTA without W/R/R Abdomen: Normoactive X4. Soft and nontender in all quadrants. Extremities: No peripheral clubbing cyanosis or edema Neuro: A&O X4 cranial nerves II through XII are grossly intact no focal neuro deficits Skin: No obvious skin lesions or rashes Results & Data Results & Data ([facility]) Vital Signs (Past 12 Hours) Vital Signs Temp Pulse Pulse Pulse Resp BP BP 02/21/21 12:48 112 H 18 127/63 02/21/21 11:45 64 134/98 02/21/21 11:30 112 H 116/86 02/21/21 11:15 106 H 88/41 L 02/21/21 11:00 105 H 90/56 L 02/21/21 10:45 109 H 88/43 L 02/21/21 10:30 114 H 66/38 L 02/21/21 10:24 74 110/47 L 02/21/21 10:15 84 77/61 L 02/21/21 10:00 117 H 94/52 L 02/21/21 09:46 115 H 90/49 L 02/21/21 09:40 112 H 57/45 L 02/21/21 09:20 115 H 108/60 02/21/21 09:01 102 H 141/73 H 02/21/21 08:55 36.5 C 105 H 02/21/21 08:08 100 H 137/61 02/21/21 07:35 36.7 C 95 H 18 159/77 H Pulse Ox 02/21/21 12:48 92 02/21/21 11:45 02/21/21 11:30 02/21/21 11:15 02/21/21 11:00 02/21/21 10:45 02/21/21 10:30 02/21/21 10:24 02/21/21 10:15 02/21/21 10:00 02/21/21 09:46 02/21/21 09:40 02/21/21 09:20 02/21/21 09:01 02/21/21 08:55 02/21/21 08:08 02/21/21 07:35 96 Laboratory Results 02/21/21 07:32 02/21/21 07:32 INR 1.7 (0.9-1.1) H 02/21/21 07:32 PG Care Time/CCT Total # of Minutes Spent Total Time Spent with Patient: Total time spent is greater than 50% in coordination of care (as documented) at patient's floor/unit and/or counseling patient: [place] [address] Subseq Hosp Care Lvl 3 Patient Type Established Medical Decision Making Low Complexity Diagnoses Syncopal episodes R55 DVT (deep venous thrombosis) I82.409 Acute blood loss anemia D62 AV fistula occlusion T82.898A Encounter type: initial encounter ESRD (end stage renal disease) N18.6 COVID-19 U07.1 Diabetes E11.9 Parkinson disease G20 GERD (gastroesophageal reflux disease) K21.9 (1) AV fistula occlusion Encounter type: initial encounter Qualified Code(s): T82.898A - Other sp ecified complication of vascular prosthetic devices, implants and grafts, initial encounter
[2021-02-21] MEDS ORDERED: HEPARIN SODIUM/DEXTROSE 25,000 UNITS/500 ML BAG IV SCH (13:45)
[2021-02-21] MEDS ORDERED: Heparin IV Adult Wt-Based Standard WITH Bolus Protocol IV SCH (14:22)
[2021-02-21] MEDS ORDERED: HEPARIN SOD (PORCINE) 1000 UNIT/ML IV ONE (14:36)
[2021-02-21 14:47] LABS: Basophils # (auto) 0.02 K/uL (0-0.2); Basophils % (auto) 0.3 %; Eosinophils # (auto) 0.43 K/uL (0-0.5); Eosinophils % (auto) 7.5 %; Hematocrit (blood only) 23.6 % (37-47); Hemoglobin 7.6 g/dL (12.0-16.0); Immature Granulocytes # (auto) 0.05 K/uL (0.00-0.02); Immature Granulocytes % (auto) 0.9 %; Lymphocytes # (auto) 1.06 K/uL (1.2-3.4); Lymphocytes % (auto) 18.4 %; Mean Corpuscular Hemoglobin 32.2 pg (25-34); Mean Platelet Volume 10.3 fL (7.4-10.4); Monocytes # (auto) 0.48 K/uL (0.11-0.59); Monocytes % (auto) 8.3 %; Neutrophils # (auto) 3.72 K/uL (1.4-6.5); Neutrophils % (auto) 64.6 %; Platelet Count 100 K/uL (130-400); RDW Coefficient of Variation 15.1 % (11.5-14.5); Red Blood Count 2.36 M/uL (4.2-5.4); White Blood Count 5.76 K/uL (4.8-10.8)
[2021-02-21 14:59] LABS: Prothrombin Time 19.1 Seconds (9.0-12.0)
[2021-02-21 15:00] LABS: Mean Corpuscular Hgb Conc 32.2 g/dL (32-36)
[2021-02-21 15:34] LABS: Polychromasia 1+
[2021-02-21] MEDS: HEPARIN SODIUM/DEXTROSE 25,000 UNITS/500 ML BAG IV SCH (15:35)
[2021-02-21] MEDS ORDERED: EPOETIN ALFA 20,000 UNITS/ML VIAL SQ STA (15:39)
--- NOTE | 2021-02-21 17:07 | XCELERA ---
[id number]
[2021-02-21] MEDS: WARFARIN SOD 7.5 MG TAB PO SCH (17:26)
[2021-02-21] MEDS: ATORVASTATIN 20 MG TAB PO SCH (20:13)
[2021-02-21] MEDS ORDERED: INSULIN HUMAN REGULAR PER UNIT 5 UNITS in SYRINGE 4.95 ML IV ONE (21:30)
[2021-02-21] MEDS: INSULIN GLARGINE SOLOSTAR 100 UNITS/ML 3 ML PEN SQ SCH (21:56)
[2021-02-21 22:57] LABS: Partial Thromboplastin Ratio 2.6
[2021-02-21 23:04] LABS: Partial Thromboplastin Time 68.3 Seconds (21.0-31.0)
[2021-02-22] MEDS: INSULIN ASPART 100 UNITS/ML 3 ML PEN SC SCH ×6 (00:08→20:23)
[2021-02-22] MEDS: CARBOHYDRATES FOR HYPOGLYCEMIA PO PRN (04:50)
[2021-02-22 07:10] LABS: Basophils # (auto) 0.01 K/uL (0-0.2); Basophils % (auto) 0.1 %; Eosinophils # (auto) 0.31 K/uL (0-0.5); Eosinophils % (auto) 4.2 %; Hematocrit (blood only) 23.1 % (37-47); Hemoglobin 7.5 g/dL (12.0-16.0); Immature Granulocytes # (auto) 0.07 K/uL (0.00-0.02); Immature Granulocytes % (auto) 0.9 %; Lymphocytes # (auto) 0.81 K/uL (1.2-3.4); Lymphocytes % (auto) 10.9 %; Mean Corpuscular Hemoglobin 32.6 pg (25-34); Mean Corpuscular Hgb Conc 32.5 g/dL (32-36); Mean Corpuscular Volume 100.4 fL (80-100); Mean Platelet Volume 10.4 fL (7.4-10.4); Monocytes # (auto) 0.74 K/uL (0.11-0.59); Neutrophils # (auto) 5.47 K/uL (1.4-6.5); Neutrophils % (auto) 73.9 %; Platelet Count 110 K/uL (130-400); RDW Standard Deviation 54.6 fL (36.4-46.3); White Blood Count 7.41 K/uL (4.8-10.8)
[2021-02-22 07:38] LABS: RBC Morphology Unremarkable
[2021-02-22 07:39] LABS: INR 1.7 (0.9-1.1); Partial Thromboplastin Ratio 1.6; Partial Thromboplastin Time 41.3 Seconds (21.0-31.0); Prothrombin Time 16.5 Seconds (9.0-12.0)
[2021-02-22 07:40] LABS: Partial Thromboplastin Ratio 1.6; Partial Thromboplastin Time 41.3 Seconds (21.0-31.0)
[2021-02-22 07:41] LABS: BUN Creatinine Ratio 20.5 (10-20); Calcium 8.4 mg/dl (8.5-10.1); Creatinine Clr Calc Pharmacy 20.1 ml/min; Est GFR (African American) 25.3 ml/min; Est GFR (Non-African American) 21.8 ml/min; Magnesium 1.5 mg/dl (1.8-2.4); Potassium 4.2 mmol/L (3.5-5.1)
[2021-02-22] MEDS ORDERED: INSULIN GLARGINE SOLOSTAR 100 UNITS/ML 3 ML PEN SC SCH (09:00)
[2021-02-22] MEDS: FOLIC ACID 1 MG TAB PO SCH (09:41)
[2021-02-22] MEDS: PANCREAZE (LIPASE 10,500U) CAP PO SCH ×3 (09:41→17:35)
[2021-02-22] MEDS: CARBIDOPA/LEVODOP 10/100MG TAB PO SCH ×3 (09:41→19:57)
[2021-02-22] MEDS: METOCLOPRAMIDE HCL 10 MG TABLET PO SCH ×4 (09:41→19:56)
[2021-02-22] MEDS: PANTOprazole 40 MG TAB PO SCH (09:41)
[2021-02-22] MEDS: CITALOPRAM 20 MG TAB PO SCH (09:42)
[2021-02-22] MEDS: MIDODRINE HCL 2.5 MG TAB PO SCH ×3 (09:42→17:35)
--- NOTE | 2021-02-22 10:46 | Nephrology Progress Note ---
Date of Service February 22, 2021 Assessment & Plan (1) ESRD (end stage renal disease): Plan: HD MWF. Adequate clearance with treatment yesterday. No UF. BP and volume status acceptable. Next anticipated dialysis on Wednesday. TDC functioning well. Medications are currently appropriately dosed for IHD. (2) AV fistula occlusion: Plan: TDC placed by Dr. Whiting on 02/11. Catheter is functioning well. Will require new AVF as outpatient. Remains on heparin gtt while transition to Coumadin for L IJ -- subclavian thrombosis. (3) Hypotension arterial: Plan: Maintained on Midodrine 5 mg TID. Volume status acceptable. (4) Acute blood loss anemia: Plan: Hgb stable. No signs of active bleeding. s/p PRBC transfusion on 02/12. Epogen to be provided with HD. Admission and Anticipated Discharge Date Admission Date: February 03, 2021 Subjective No acute events overnight. Federica feels well this AM. She denies any shortness of breath. No fevers or chills. Appetite fair. Completed HD yesterday with adequate clearance. No UF due to intradialytic hypotension. TDC functioning well. Review of Systems Review of Systems: All systems reviewed & are unremarkable except as noted in HPI & below Physical Exam Constitutional: well developed and + frail appearing; no acute distress Eyes: no scleral abnormality and no corneal abnormality ENMT: Mouth: + edentulous; no oral mucosal abnormality and oral mucous membranes not dry Neck: normal visual inspection and trachea midline RIJ TDC Respiratory: normal respiratory effort Auscultation: lungs clear to auscultation bilaterally Cardiovascular: Rate/Rhythm: regular rate Heart Sounds: normal S1, normal S2 and + murmur Extremities: + AV fistula (Palpable cord without thrill or bruit LUE BC); no edema Musculoskeletal: Extremities: no cyanosis and no clubbing Skin: + turgor decreased; no lesions Neurologic: Motor/Sensory: no tremor and no asterixis Psychiatric: Orientation: alert and oriented x 3 Results & Data ([facility]) Vital Signs (Past 12 Hours) Vital Signs Temp Pulse Pulse Resp BP Pulse Ox 02/22/21 07:35 36.4 C L 95 H 18 123/53 L 96 02/21/21 23:00 36.6 C 95 H 16 156/50 H 94 Laboratory Results Laboratory Results - last 24 hr 02/21/21 02/21/21 02/21/21 12:32 14:37 14:37 WBC 5.76 RBC 2.36 L Hgb 7.6 L Hct 23.6 L MCV 100.0 MCH 32.2 MCHC 32.2 RDW Std Deviation 55.0 H RDW Coeff of Tin 15.1 H Plt Count 100 L MPV 10.3 Immature Gran % (Auto) 0.9 Neut % (Auto) 64.6 Lymph % (Auto) 18.4 Payne % (Auto) 8.3 Eos % (Auto) 7.5 Baso % (Auto) 0.3 Neut # (Auto) 3.72 Lymph # (Auto) 1.06 L Payne # (Auto) 0.48 Eos # (Auto) 0.43 Baso # (Auto) 0.02 Immature Gran # (Auto) 0.05 H RBC Morphology Polychromasia 1+ PT 19.1 H INR 2.0 H APTT PTT Ratio Sodium Potassium Chloride Carbon Dioxide Anion Gap BUN Creatinine Est Cr Clr Drug Dosing Est GFR ( Amer) Est GFR (Non-Af Amer) BUN/Creatinine Ratio Glucose POC Glucose 131 H Calcium Magnesium 02/21/21 02/21/21 02/21/21 17:19 17:20 20:21 WBC RBC Hgb Hct MCV MCH MCHC RDW Std Deviation RDW Coeff of Tin Plt Count MPV Immature Gran % (Auto) Neut % (Auto) Lymph % (Auto) Payne % (Auto) Eos % (Auto) Baso % (Auto) Neut # (Auto) Lymph # (Auto) Payne # (Auto) Eos # (Auto) Baso # (Auto) Immature Gran # (Auto) RBC Morphology Polychromasia PT INR APTT PTT Ratio Sodium Potassium Chloride Carbon Dioxide Anion Gap BUN Creatinine Est Cr Clr Drug Dosing Est GFR ( Amer) Est GFR (Non-Af Amer) BUN/Creatinine Ratio Glucose POC Glucose 404 H* 383 H* 386 H* Calcium Magnesium 02/21/21 02/21/21 02/21/21 20:33 22:17 23:59 WBC RBC Hgb Hct MCV MCH MCHC RDW Std Deviation RDW Coeff of Tin Plt Count MPV Immature Gran % (Auto) Neut % (Auto) Lymph % (Auto) Payne % (Auto) Eos % (Auto) Baso % (Auto) Neut # (Auto) Lymph # (Auto) Payne # (Auto) Eos # (Auto) Baso # (Auto) Immature Gran # (Auto) RBC Morphology Polychromasia PT INR APTT 68.3 H* PTT Ratio 2.6 Sodium Potassium Chloride Carbon Dioxide Anion Gap BUN Creatinine Est Cr Clr Drug Dosing Est GFR ( Amer) Est GFR (Non-Af Amer) BUN/Creatinine Ratio Glucose POC Glucose 388 H* 117 H Calcium Magnesium 02/22/21 02/22/21 02/22/21 04:40 04:43 05:08 WBC RBC Hgb Hct MCV MCH MCHC RDW Std Deviation RDW Coeff of Tin Plt Count MPV Immature Gran % (Auto) Neut % (Auto) Lymph % (Auto) Payne % (Auto) Eos % (Auto) Baso % (Auto) Neut # (Auto) Lymph # (Auto) Payne # (Auto) Eos # (Auto) Baso # (Auto) Immature Gran # (Auto) RBC Morphology Polychromasia PT INR APTT PTT Ratio Sodium Potassium Chloride Carbon Dioxide Anion Gap BUN Creatinine Est Cr Clr Drug Dosing Est GFR ( Amer) Est GFR (Non-Af Amer) BUN/Creatinine Ratio Glucose POC Glucose 62 L* 63 L* 82 Calcium Magnesium 02/22/21 02/22/21 02/22/21 06:42 06:42 06:42 WBC 7.41 RBC 2.30 L Hgb 7.5 L Hct 23.1 L MCV 100.4 H MCH 32.6 MCHC 32.5 RDW Std Deviation 54.6 H RDW Coeff of Tin 15.0 H Plt Count 110 L MPV 10.4 Immature Gran % (Auto) 0.9 Neut % (Auto) 73.9 Lymph % (Auto) 10.9 Payne % (Auto) 10.0 Eos % (Auto) 4.2 Baso % (Auto) 0.1 Neut # (Auto) 5.47 Lymph # (Auto) 0.81 L Payne # (Auto) 0.74 H Eos # (Auto) 0.31 Baso # (Auto) 0.01 Immature Gran # (Auto) 0.07 H RBC Morphology Unremarkable Polychromasia PT INR APTT 41.3 H PTT Ratio 1.6 Sodium 137 Potassium 4.2 Chloride 103 Carbon Dioxide 29 Anion Gap 5.0 BUN 45 H Creatinine 2.19 H D Est Cr Clr Drug Dosing 20.1 Est GFR ( Amer) 25.3 Est GFR (Non-Af Amer) 21.8 BUN/Creatinine Ratio 20.5 H Glucose 128 H POC Glucose Calcium 8.4 L Magnesium 1.5 L 02/22/21 02/22/21 06:42 08:30 WBC RBC Hgb Hct MCV MCH MCHC RDW Std Deviation RDW Coeff of Tin Plt Count MPV Immature Gran % (Auto) Neut % (Auto) Lymph % (Auto) Payne % (Auto) Eos % (Auto) Baso % (Auto) Neut # (Auto) Lymph # (Auto) Payne # (Auto) Eos # (Auto) Baso # (Auto) Immature Gran # (Auto) RBC Morphology Polychromasia PT 16.5 H INR 1.7 H APTT 41.3 H PTT Ratio 1.6 Sodium Potassium Chloride Carbon Dioxide Anion Gap BUN Creatinine Est Cr Clr Drug Dosing Est GFR ( Amer) Est GFR (Non-Af Amer) BUN/Creatinine Ratio Glucose POC Glucose 186 H Calcium Magnesium PG Care Time/CCT Total # of Minutes Spent Total Time Spent with Patient: Total time spent is greater than 50% in coordination of care (as documented) at patient's floor/unit and/or counseling patient: Coding Level of Care Code 65640 Subseq Hosp Care Lvl 3 Diagnoses ESRD (end stage renal disease) N18.6 AV fistula occlusion T82.898A Encounter type: initial encounter Hypotension arterial I95.9 Acute blood loss anemia D62 (1) AV fistula occlusion Encounter type: initial encounter Qualified Code(s): T82.898A - Other specified complication of vascular prosthetic devices, implants and grafts, initial encounter
--- NOTE | 2021-02-22 11:27 | Pharmacy Report ---
Pharmacy Glycemic Short Note 2 - Date of Service February 22, 2021 - Glycemic Short BSG Results (Last 24 hours): 02/21/21 02/21/21 02/21/21 12:32 17:19 17:20 Glucose POC Glucose 131 H 404 H* 383 H* 02/21/21 02/21/21 02/21/21 20:21 20:33 23:59 Glucose POC Glucose 386 H* 388 H* 117 H 02/22/21 02/22/21 02/22/21 04:40 04:43 05:08 Glucose POC Glucose 62 L* 63 L* 82 02/22/21 02/22/21 06:42 08:30 Glucose 128 H POC Glucose 186 H OUTPATIENT ANTIDIABETIC REGIMEN: * Lantus 25 units SQ HS * Humalog per scale * A1c = 6.8% on 02/04/21 * However, this result is likely somewhat unreliable in ESRD patients d/t interactions between the A1c analyzing technique and high levels of urea in ESRD, reduced RBC life span, iron deficiency anemia, and EPO administration. HbA1c > 7.5% in ESRD patient may overestimate the extent of hyperglycemia in ESRD patients. ASSESSMENT: 02/22 * Patient received 85 units insulin yesterday, 15 units Lantus, 70 units NovoLog * Hyperglycemia again last night prior to dinner, may be d/t insufficient basal insulin on board, increase basal and move to more 50:50 basal/bolus ratio of insulin * No other changes at this time 02/21 * Hyperglycemia last night prior to dinner for unknown reason; may have no had adequate CHO coverage at lunch vs dextrose containing dialysate? * Hyperglycemia resolved with current CF/CR scale; BSG 312 --> 107 mg/dl with 26 units of NovoLog. * AM fasting BSG is in goal range with reduced outpatient insulin dosing. * No changes needed at this time. PLAN FOR INPATIENT GLYCEMIC CONTROL: * Basal insulin * Lantus 20 units SQ AM + 15 units SQ HS * Bolus insulin * NovoLog per scale ACHS or Q6hrs while NPO * Goal Range: Low 100 mg/dL - High 140 mg/dL * Correction Factor: 12 mg/dL/unit * Nutritional / Prandial insulin per carb ratio of 1 unit per 5 grams CHO consumed PLAN FOR DISCHARGE: * [facility]
--- NOTE | 2021-02-22 14:11 | Hospitalist Progress Note ---
Date of Service February 22, 2021 Assessment & Plan (1) Syncopal episodes: Plan: * Previously has had several, 10-second syncopal episodes here. No suspicion of seizures * Thought to be related to the fact that her hemodialysis had been increased. Bumex has since been stopped. Patient remains euvolemic (with nephrology managing hemodialysis sessions) * Orthostatics were negative on 02/16. * Slow, careful transitions. Out of bed with assistance. Hemodialysis to manage her fluid balance * echo done and unremarkable (2) DVT (deep venous thrombosis): Plan: * Doppler of the bilateral internal jugular veins on 02/10 showed deep venous thrombus within the mid to distal left internal jugular vein which extends into the left subclavian vein. * Started heparin gtt on 02/10 (which was stopped lastnight with presumption that her INR would be therapeutic) * Started warfarin on 02/13 (waited 1 extra day due to anemia). Monitor INR. Will need to transition fully while in the hospital because given her poor kidney function, she cannot use Lovenox and no DOACs acceptable (after discussion with hematology and Dr. Shaw). * INR 2.0 last evening. Coumadin increased from 5mg to 7.5mg. INR 1.7 today * back on heparin Gtt (bridge thereapy recommended with overlap x48 hours once therapeutic) (3) Acute blood loss anemia: Plan: * Hemoglobin ~8 - 9 baseline, likely due to chronic kidney disease and chronic disease. However, between surgery (for her tunneled-line on 02/11) and losing about 500 mL of blood in the dialysis machine on 02/11 when her line clotted, she dropped to 6.4 on 02/12. No melenic or bloody stools, no bruising, no abdominal pain to indicate RP bleed (or reason for an RP bleed) -> No signs of other bleeding. * Transfused 1 unit of PRBCs on 02/12 * Procrit given on 02/11 and 02/13. I have reached out to Nephro regarding continued doses. Per Nephro, they will order if necessary * iron level was ordered and normal * stool for occult blood reported as negative. (4) AV fistula occlusion: Plan: * AVF Duplex on admission showed occlusion of her LUE fistula. Likely occluded since HD session on Wednesday, 01/31. * Vascular surgery on board -> Tunneled Permacath done on 02/11. * had some bleeding at the site on 02/13 after an HD session. Used TXA-soaked gauze and paused heparin which stopped the bleeding nicely. Looked good on 02/16. no bleeding since * plan is for new Fistula as an OP (5) ESRD (end stage renal disease): Plan: * Per patient, she follows with [facility] in [place]. * dialysis increased from twice a week to 3x/week. Tolerating this well * Continue midodrine * Had been on Bumex 2 mg PO daily on admission (when she looked a bit hypervolemic). Stopped on 02/16 with increased weekly dialysis (6) COVID-19: Plan: Reports being diagnosed ~01/21/2021 with no symptoms at the time (routine SNF testing). A few days later, developed cough which has persisted. Otherwise, no symptoms. - Finished isolation precautions on 02/10 (7) Diabetes: Plan: A1c was 6.8% this admission. Does not know her regimen at [facility]. - Long-acting dropped to 15 units HS (from either 20 units, 25 units, or 45 units; it is unclear and patient doesn't know). - blood sugars elevated. Aware of this--pharmacy already on board and to manage. (8) Parkinson disease: Plan: Presumed diagnosis. - Continue Sinemet (9) GERD (gastroesophageal reflux disease): Plan: - Continue PPI Dispo: Complex arrangement where she was at [facility] ([facility]) -> [facility] -> [facility] (due to her Covid infection) -> [facility]. Plan is for D/C back to with additional services (home PT/OT and VN): at this point, remains on heparin gtt and coumadin. awaiting therapeutic state. once therapeutic, will need overlap x 48 hours Note: She does not want her sister given updates and only wants us to call her brother "if we have to." Plan: plan of care will be D/W Dr. Grady Admission and Anticipated Discharge Date Admission Date: February 03, 2021 Supervising Physician Co-Signing Physician Notes Attending Attestation: Chart reviewed in detail, care plan d/w RKISH Boone. I agree w/ the morales components of her documentation. INR 1.7 noted - adjustments to coumadin per Ms Boone. Cont heparin drip. 2- days of overlap therapy once INR is >2 needed. Anemia - Hb 7.5 today - check b12/folate/ferritin in am. Check TSH as thyroid dysfunction can contribute to anemia. Tx threshold <7. Echo noted - hyperdynamic LV. Check TSH - r/o hyperthyroid state. Anemia could be contributing. PEs?? (recent COVID, clots in L IJ / L subclavian, etc) Consider CTA chest. Other plans per Ms Boone. Jerome Grady MD Subjective Patient seen on daily rounds today. Vocalizes no complaints or concerns. Remains in house for bridge heparin/Coumadin overlap for left IJ DVT. Per coagulation clinic, Lovenox cannot be used given her renal dysfunction and dialysis (nor can the DOAC's). Ultimately, this leaves heparin/Coumadin bridge therapy. Once therapeutic, will require overlap X 48 hours. INR was 2.0 last evening. Is 1.7 this morning. Patient had been receiving Coumadin 5 mg daily and her INR was subtherapeutic. Increased to 7.5 mg last evening. Otherwise, patient vocalizes no complaints or concerns. Denies fevers, chills, chest pain, shortness of breath, abdominal pain, nausea or vomiting. Has remained hemodynamically stable. Review of Systems Review of Systems: All systems reviewed and are unremarkable except as noted in HPI and below Denies fevers, chills, headache, nasal congestion, sore throat, cough, chest pain, shortness of breath, abdominal pain, nausea, vomiting, dysuria, hematuria, frequency, skin lesions or rashes. Physical Exam Physical Exam: General: Resting comfortably in her hospital bed. Appears chronically but not acutely ill. NAD. Neck: Difficult to assess for JVD given permacath in right IJ Cardiac: RRR with 3/6 holosystolic murmur Lungs: CTA without W/R/R Abdomen: Normoactive X4. Soft and nontender in all quadrants. Extremities: No peripheral clubbing cyanosis or edema Neuro: A&O X4 cranial nerves II through XII are grossly intact no focal neuro deficits Skin: No obvious skin lesions or rashes Results & Data Results & Data ([facility]) Vital Signs (Past 12 Hours) Vital Signs Temp Pulse Resp BP Pulse Ox 02/22/21 07:35 36.4 C L 95 H 18 123/53 L 96 Laboratory Results 02/22/21 06:42 02/22/21 06:42 Diagnostic Findings Echocardiogram shows left ventricle is hyperdynamic. EF 65 to 70%. No significant valvular disease. PG Care Time/CCT Total # of Minutes Spent Total Time Spent with Patient: Total time spent is greater than 50% in co ordination of care (as documented) at patient's floor/unit and/or counseling patient: [place] [address] Subseq Hosp Care Lvl 3 Patient Type Established Medical Decision Making Low Complexity Diagnoses Syncopal episodes R55 DVT (deep venous thrombosis) I82.409 Acute blood loss anemia D62 AV fistula occlusion T82.898A Encounter type: initial encounter ESRD (end stage renal disease) N18.6 COVID-19 U07.1 Diabetes E11.9 Parkinson disease G20 GERD (gastroesophageal reflux disease) K21.9 (1) AV fistula occlusion Encounter type: initial encounter Qualified Code(s): T82.898A - Other specified complication of vascular prosthetic devices, implants and grafts, initial encounter
[2021-02-22] MEDS: MAGNESIUM SULFATE / D5W 1 GM/100 ML BAG IV SCH ×2 (14:29→16:32)
[2021-02-22 14:37] LABS: Partial Thromboplastin Ratio 1.6; Partial Thromboplastin Time 42.5 Seconds (21.0-31.0)
[2021-02-22] MEDS ORDERED: INSULIN HUMAN REGULAR PER UNIT 5 UNITS in SYRINGE 4.95 ML IV ONE (14:45)
[2021-02-22] MEDS: WARFARIN SOD 7.5 MG TAB PO SCH (16:36)
[2021-02-22] MEDS: MAGNESIUM OXIDE 400 MG TAB PO SCH (19:57)
[2021-02-22] MEDS: hydrOXYzine HCl 10 MG TAB PO PRN (19:57)
[2021-02-22] MEDS: ATORVASTATIN 20 MG TAB PO SCH (20:01)
[2021-02-22] MEDS: INSULIN GLARGINE SOLOSTAR 100 UNITS/ML 3 ML PEN SQ SCH (20:22)
[2021-02-22] MEDS: HYDROCORTISONE 2.5% CR 30 GM TUBE EXT PRN (20:28)
[2021-02-22 21:41] LABS: Partial Thromboplastin Time 51.9 Seconds (21.0-31.0)
[2021-02-23] MEDS: CARBOHYDRATES FOR HYPOGLYCEMIA PO PRN ×3 (01:36→16:00)
[2021-02-23] MEDS: HEPARIN SODIUM/DEXTROSE 25,000 UNITS/500 ML BAG IV SCH ×2 (07:07→15:31)
[2021-02-23 07:56] LABS: Basophils # (auto) 0.01 K/uL (0-0.2); Basophils % (auto) 0.2 %; Eosinophils # (auto) 0.51 K/uL (0-0.5); Eosinophils % (auto) 9.8 %; Hematocrit (blood only) 22.4 % (37-47); Hemoglobin 7.2 g/dL (12.0-16.0); Immature Granulocytes # (auto) 0.05 K/uL (0.00-0.02); Lymphocytes # (auto) 0.97 K/uL (1.2-3.4); Lymphocytes % (auto) 18.7 %; Mean Corpuscular Hemoglobin 32.1 pg (25-34); Mean Corpuscular Hgb Conc 32.1 g/dL (32-36); Mean Platelet Volume 10.5 fL (7.4-10.4); Monocytes # (auto) 0.37 K/uL (0.11-0.59); Monocytes % (auto) 7.1 %; Neutrophils # (auto) 3.27 K/uL (1.4-6.5); Neutrophils % (auto) 63.2 %; Platelet Count 112 K/uL (130-400); RDW Standard Deviation 54.6 fL (36.4-46.3); Red Blood Count 2.24 M/uL (4.2-5.4); White Blood Count 5.18 K/uL (4.8-10.8)
[2021-02-23 08:18] LABS: BUN Creatinine Ratio 26.1 (10-20); Calcium 8.4 mg/dl (8.5-10.1); Creatinine Clr Calc Pharmacy 16.8 ml/min; Est GFR (African American) 20.3 ml/min; Est GFR (Non-African American) 17.6 ml/min; Magnesium 1.7 mg/dl (1.8-2.4)
[2021-02-23 08:23] LABS: INR 2.2 (0.9-1.1); Partial Thromboplastin Ratio 2.4; Prothrombin Time 21.3 Seconds (9.0-12.0)
[2021-02-23 08:28] LABS: Thyroid Stimulating Hormone 1.16 uIu/ml (0.300-4.500)
[2021-02-23 08:30] LABS: Polychromasia 1+
[2021-02-23 08:51] LABS: Folate (Folic Acid) > 20.00 ng/ml (>5.38); Vitamin B12 299 pg/ml (193-986)
[2021-02-23] MEDS: CITALOPRAM 20 MG TAB PO SCH (08:51)
[2021-02-23] MEDS: METOCLOPRAMIDE HCL 10 MG TABLET PO SCH ×4 (08:52→20:54)
[2021-02-23] MEDS: FOLIC ACID 1 MG TAB PO SCH (08:52)
[2021-02-23] MEDS: MAGNESIUM OXIDE 400 MG TAB PO SCH ×2 (08:52→20:54)
[2021-02-23] MEDS: CARBIDOPA/LEVODOP 10/100MG TAB PO SCH ×3 (08:52→20:53)
[2021-02-23] MEDS: PANTOprazole 40 MG TAB PO SCH (08:53)
[2021-02-23] MEDS: PANCREAZE (LIPASE 10,500U) CAP PO SCH ×3 (08:53→17:31)
[2021-02-23] MEDS: MIDODRINE HCL 2.5 MG TAB PO SCH ×3 (08:53→17:31)
--- NOTE | 2021-02-23 08:55 | Pharmacy Report ---
Pharmacy Glycemic Short Note 2 - Date of Service February 23, 2021 - Glycemic Short BSG Results (Last 24 hours): 02/22/21 02/22/21 02/22/21 12:30 12:31 14:19 Glucose POC Glucose 363 H* 366 H* 404 H* 02/22/21 02/22/21 02/23/21 16:34 20:20 01:35 Glucose POC Glucose 285 H 291 H 55 L* 02/23/21 02/23/21 02/23/21 01:52 06:46 08:08 Glucose 242 H POC Glucose 95 298 H OUTPATIENT ANTIDIABETIC REGIMEN: * Lantus 25 units SQ HS * Humalog per scale * A1c = 6.8% on 02/04/21 * However, this result is likely somewhat unreliable in ESRD patients d/t interactions between the A1c analyzing technique and high levels of urea in ESRD, reduced RBC life span, iron deficiency anemia, and EPO administration. HbA1c > 7.5% in ESRD patient may overestimate the extent of hyperglycemia in ESRD patients. ASSESSMENT: 02/23 * Patient with hypoglycemia again, this time at 1am, BSG 55mg/dl - change Lantus to NPH since second episode of hypoglycemia overnight/fasting * Blood sugars still high throughout the day, QAM NPH will cover some of this, tighten CF/CR 02/22 * Patient received 85 units insulin yesterday, 15 units Lantus, 70 units NovoLog * Hyperglycemia again last night prior to dinner, may be d/t insufficient basal insulin on board, increase basal and move to more 50:50 basal/bolus ratio of insulin * Hypoglycemia, BSG 62mg/dl this morning likely d/t excess correctional insulin, loosen CF * No other changes at this time 02/21 * Hyperglycemia last night prior to dinner for unknown reason; may have no had adequate CHO coverage at lunch vs dextrose containing dialysate? * Hyperglycemia resolved with current CF/CR scale; BSG 312 --> 107 mg/dl with 26 units of NovoLog. * AM fasting BSG is in goal range with reduced outpatient insulin dosing. * No changes needed at this time. PLAN FOR INPATIENT GLYCEMIC CONTROL: * Basal insulin * DC Lantus * NPH 40 units SQ QAM * Bolus insulin * NovoLog per scale ACHS or Q6hrs while NPO * Goal Range: Low 110 mg/dL - High 140 mg/dL * Correction Factor: 12 mg/dL/unit * Nutritional / Prandial insulin per carb ratio of 1 unit per 3 grams CHO consumed PLAN FOR DISCHARGE: * No changes needed at DC unless experiencing hypoglycemia at home
[2021-02-23] MEDS: INSULIN ASPART 100 UNITS/ML 3 ML PEN SC SCH ×4 (08:57→21:02)
[2021-02-23] MEDS ORDERED: INSULIN HUMAN NPH SC SCH (09:00)
[2021-02-23 09:06] LABS: Partial Thromboplastin Time 62.7 Seconds (21.0-31.0)
--- NOTE | 2021-02-23 10:59 | Nephrology Progress Note ---
Date of Service February 23, 2021 Assessment & Plan (1) ESRD (end stage renal disease): Plan: HD MWF. BP and volume status acceptable. Electrolytes have been controlled. Adequate treatment with HD. HD planned for tomorrow. Medications are currently appropriately dosed for IHD. Receiving magnesium replacement, will monitor. (2) AV fistula occlusion: Plan: TDC placed by Dr. Whiting on 02/11. Catheter is functioning well. Will require new AVF as outpatient. Remains on heparin gtt while transition to Coumadin for L IJ -- subclavian thrombosis. (3) Hypotension arterial: Plan: Maintained on Midodrine 5 mg TID. Volume status acceptable. (4) Acute blood loss anemia: Plan: Hgb stable. No signs of active bleeding. s/p PRBC transfusion on 02/12. Tsat acceptable at 30. Epogen to be provided with HD, 16888 units ordered with HD for tomorrow in addition to 100 mg venofer. Admission and Anticipated Discharge Date Admission Date: February 03, 2021 Subjective Patient seen on daily rounds today. Vocalizes no complaints or concerns. Remains in house for bridge heparin/Coumadin overlap for left IJ DVT. Per coagulation clinic, Lovenox cannot be used given her renal dysfunction and dialysis (nor can the DOAC's). Ultimately, this leaves heparin/Coumadin bridge therapy. Once therapeutic, will require overlap X 48 hours. INR was 2.0 last evening. Is 1.7 this morning. Patient had been receiving Coumadin 5 mg daily and her INR was subtherapeutic. Increased to 7.5 mg last evening. Otherwise, patient vocalizes no complaints or concerns. Denies fevers, chills, chest pain, shortness of breath, abdominal pain, nausea or vomiting. Has remained hemodynamically stable. Review of Systems Review of Systems: All systems reviewed & are unremarkable except as noted in HPI & below Physical Exam Constitutional: well developed and + frail appearing; no acute distress Eyes: no scleral abnormality and no corneal abnormality ENMT: Mouth: + edentulous; no oral mucosal abnormality and oral mucous membranes not dry Neck: normal visual inspection and trachea midline Respiratory: normal respiratory effort Auscultation: lungs clear to auscultation bilaterally Cardiovascular: Rate/Rhythm: regular rate Heart Sounds: normal S1, normal S2 and + murmur Extremities: + AV fistula (Palpable cord without thrill or bruit LUE BC); no edema Musculoskeletal: Extremities: no cyanosis and no clubbing Skin: + turgor decreased; no lesions Neurologic: Motor/Sensory: no tremor and no asterixis Psychiatric: Orientation: alert and oriented x 3 Results & Data ([facility]) Vital Signs (Past 12 Hours) Vital Signs Temp Pulse Resp BP Pulse Ox 02/23/21 07:36 36.7 C 102 H 16 133/62 97 Laboratory Results Laboratory Results - last 24 hr 02/22/21 02/22/21 02/22/21 12:30 12:31 13:48 WBC RBC Hgb Hct MCV MCH MCHC RDW Std Deviation RDW Coeff of Tin Plt Count MPV Immature Gran % (Auto) Neut % (Auto) Lymph % (Auto) [place] % (Auto) Eos % (Auto) Baso % (Auto) Neut # (Auto) Lymph # (Auto) [place] # (Auto) Eos # (Auto) Baso # (Auto) Immature Gran # (Auto) Polychromasia PT INR APTT 42.5 H PTT Ratio 1.6 Sodium Potassium Chloride Carbon Dioxide Anion Gap BUN Creatinine Est Cr Clr Drug Dosing Est GFR ( Amer) Est GFR (Non-Af Amer) BUN/Creatinine Ratio Glucose POC Glucose 363 H* 366 H* Calcium Magnesium Ferritin Vitamin B12 Folate TSH 02/22/21 02/22/21 02/22/21 14:19 16:34 20:20 WBC RBC Hgb Hct MCV MCH MCHC RDW Std Deviation RDW Coeff of Tin Plt Count MPV Immature Gran % (Auto) Neut % (Auto) Lymph % (Auto) [place] % (Auto) Eos % (Auto) Baso % (Auto) Neut # (Auto) Lymph # (Auto) [place] # (Auto) Eos # (Auto) Baso # (Auto) Immature Gran # (Auto) Polychromasia PT INR APTT PTT Ratio Sodium Potassium Chloride Carbon Dioxide Anion Gap BUN Creatinine Est Cr Clr Drug Dosing Est GFR ( Amer) Est GFR (Non-Af Amer) BUN/Creatinine Ratio Glucose POC Glucose 404 H* 285 H 291 H Calcium Magnesium Ferritin Vitamin B12 F[address] [facility] 02/22/21 02/23/21 02/23/21 20:35 01:35 01:52 WBC RBC Hgb Hct MCV MCH MCHC RDW Std Deviation RDW Coeff of Tin Plt Count MPV Immature Gran % (Auto) Neut % (Auto) Lymph % (Auto) [place] % (Auto) Eos % (Auto) Baso % (Auto) Neut # (Auto) Lymph # (Auto) [place] # (Auto) Eos # (Auto) Baso # (Auto) Immature Gran # (Auto) Polychromasia PT INR APTT 51.9 H* PTT Ratio 2.0 Sodium Potassium Chloride Carbon Dioxide Anion Gap BUN Creatinine Est Cr Clr Drug Dosing Est GFR ( Amer) Est GFR (Non-Af Amer) BUN/Creatinine Ratio Glucose POC Glucose 55 L* 95 Calcium Magnesium Ferritin Vitamin B12 Folate TSH 02/23/21 02/23/21 02/23/21 06:46 06:46 06:46 WBC 5.18 RBC 2.24 L Hgb 7.2 L Hct 22.4 L MCV 100.0 MCH 32.1 MCHC 32.1 RDW Std Deviation 54.6 H RDW Coeff of Tin 15.0 H Plt Count 112 L MPV 10.5 H Immature Gran % (Auto) 1.0 Neut % (Auto) 63.2 Lymph % (Auto) 18.7 [place] % (Auto) 7.1 Eos % (Auto) 9.8 Baso % (Auto) 0.2 Neut # (Auto) 3.27 Lymph # (Auto) 0.97 L [place] # (Auto) 0.37 Eos # (Auto) 0.51 H Baso # (Auto) 0.01 Immature Gran # (Auto) 0.05 H Polychromasia 1+ PT 21.3 H INR 2.2 H APTT 62.7 H* PTT Ratio 2.4 Sodium 135 L Potassium 4.0 Chloride 101 Carbon Dioxide 28 Anion Gap 6.0 BUN 69 H D Creatinine 2.62 H D Est Cr Clr Drug Dosing 16.8 Est GFR ( Amer) 20.3 Est GFR (Non-Af Amer) 17.6 BUN/Creatinine Ratio 26.1 H Glucose 242 H POC Glucose Calcium 8.4 L Magnesium 1.7 L Ferritin 994.0 H Vitamin B12 Folate TSH 1.160 02/23/21 02/23/21 06:46 08:08 WBC RBC Hgb Hct MCV MCH MCHC RDW Std Deviation RDW Coeff of Tin Plt Count MPV Immature Gran % (Auto) Neut % (Auto) Lymph % (Auto) [place] % (Auto) Eos % (Auto) Baso % (Auto) Neut # (Auto) Lymph # (Auto) [place] # (Auto) Eos # (Auto) Baso # (Auto) Immature Gran # (Auto) Polychromasia PT INR APTT PTT Ratio Sodium Potassium Chloride Carbon Dioxide Anion Gap BUN Creatinine Est Cr Clr Drug Dosing Est GFR ( Amer) Est GFR (Non-Af Amer) BUN/Creatinine Ratio Glucose POC Glucose 298 H Calcium Magnesium Ferritin Vitamin B12 299 Folate > 20.00 TSH PG Care Time/CCT Total # of Minutes Spent Total Time Spent with Patient: Total time spent is greater than 50% in coordination of care (as documented) at patient's floor/unit and/or counseling patient: Coding Level of Care Code 23554 Subseq Hosp Care Lvl 3 Diagnoses ESRD (end stage renal disease) N18.6 AV fistula occlusion T82.898A Encounter type: initial encounter Hypotension arterial I95.9 Acute blood loss anemia D62 (1) AV fistula occlusion Encounter type: initial encounter Qualified Code(s): T82.898A - Other specified complication of vascular prosthetic devices, implants and grafts, initial encounter
[2021-02-23] MEDS ORDERED: MAGNESIUM SULFATE / D5W 1 GM/100 ML BAG IV STA (12:44)
--- NOTE | 2021-02-23 14:25 | Hospitalist Progress Note ---
Date of Service February 23, 2021 Assessment & Plan (1) Syncopal episodes: Plan: * Previously has had several, 10-second syncopal episodes here. No suspicion of seizures * Thought to be related to the fact that her hemodialysis had been increased. Bumex has since been stopped. Patient remains euvolemic (with nephrology managing hemodialysis sessions) * Orthostatics were negative on 02/16. * Slow, careful transitions. Out of bed with assistance. Hemodialysis to manage her fluid balance * echo done and unremarkable * No changes to treatment plan today. Continue on telemetry until discharge. Medically stable to be discharged (2) DVT (deep venous thrombosis): Plan: * Doppler of the bilateral internal jugular veins on 02/10 showed deep venous thrombus within the mid to distal left internal jugular vein which extends into the left subclavian vein. * Started heparin gtt on 02/10 (which was stopped lastnight with presumption that her INR would be therapeutic) * Started warfarin on 02/13 (waited 1 extra day due to anemia). Monitor INR. Will need to transition fully while in the hospital because given her poor kidney function, she cannot use Lovenox and no DOACs acceptable (after discussion with hematology and Dr. Shaw). * INR now therapeutic at 2.2 . Continue Coumadin at 7.5mg. * Bridge therapy with overlap x48 hours. If INR remains therapeutic, can discontinue heparin drip on Wednesday morning 02/25/2021 (3) Acute blood loss anemia: Plan: * Hemoglobin is now 7.2 g/Abelardo. This is stable. Patient is also hemodynamically stable. Will discuss transfusion with dialysis for tomorrow * Hemoglobin ~8 - 9 baseline, likely due to chronic kidney disease and chronic disease. However, between surgery (for her tunneled-line on 02/11) and losing about 500 mL of blood in the dialysis machine on 02/11 when her line clotted, she dropped to 6.4 on 02/12. No melenic or bloody stools, no bruising, no abdominal pain to indicate RP bleed (or reason for an RP bleed) -> No signs of other bleeding. * Transfused 1 unit of PRBCs on 02/12 * Procrit given on 02/11 and 02/13. Nephrology will order additional doses of Procrit as needed * iron level was ordered and normal * stool for occult blood reported as negative. (4) AV fistula occlusion: Plan: * AVF Duplex on admission showed occlusion of her LUE fistula. Likely occluded since HD session on Wednesday, 01/31. * Vascular surgery on board -> Tunneled Permacath done on 02/11. * had some bleeding at the site on 02/13 after an HD session. Used TXA-soaked gauze and paused heparin which stopped the bleeding nicely. Looked good on 02/16. no bleeding since * plan is for new Fistula as an OP (5) ESRD (end stage renal disease): Plan: * Per patient, she follows with [facility] in [place]. * dialysis increased from twice a week to 3x/week. Tolerating well * Continue midodrine * Had been on Bumex 2 mg PO daily on admission (when she looked a bit hypervolemic). Stopped on 02/16 with increased weekly dialysis (6) COVID-19: Plan: Reports being diagnosed ~01/21/2021 with no symptoms at the time (routine SNF testing). A few days later, developed cough which has persisted. Otherwise, no symptoms. - Finished isolation precautions on 02/10 (7) Diabetes: Plan: A1c was 6.8% this admission. Does not know her regimen at [facility]. - Long-acting dropped to 15 units HS (from either 20 units, 25 units, or 45 units; it is unclear and patient doesn't know). -Continue management with pharmacy glycemic control consult. Their input appreciated Basal insulin Lantus discontinued NPH 40 units SQ QAM Bolus insulin NovoLog per scale ACHS or Q6hrs while NPO Goal Range: Low 110 mg/dL - High 140 mg/dL Correction Factor: 12 mg/dL/unit Nutritional / Prandial insulin per carb ratio of 1 unit per 3 grams CHO consumed (8) Parkinson disease: Plan: Presumed diagnosis. - Continue Sinemet (9) GERD (gastroesophageal reflux disease): Plan: - Continue PPI Dispo: Complex arrangement where she was at [facility] ([facility] -> [facility] -> [facility] (due to her Covid infection) -> [facility]. Plan is for D/C back to with additional services (home PT/OT and VN): at this point, remains on heparin gtt and coumadin. awaiting therapeutic state. once therapeutic, will need overlap x 48 hours. If patient remains therapeutic on Coumadin, should be ready for discharge on 02/25/2021 Note: She does not want her sister given updates and only wants us to call her brother "if we have to." Plan: plan of care will be D/W Dr. Grady Admission and Anticipated Discharge Date Admission Date: February 03, 2021 Supervising Physician Co-Signing Physician Notes Attending Attestation: Chart reviewed in detail, care plan d/w KRISH Grimes. I agree w/ the morales components of his documentation. INR today 2.2. Cont heparin drip with coumadin; 2-days of overlap therapy needed. Left subclavian and IJ DVTs discovered earlier this stay. Anemia - Hb 7.2 today - b12 level 299 - technically "normal" but this is low for a senior. Would supplement with 1000mcg daily, with goal of 400-500. folate wnl. ferritin high. recent transferrin sat >30%. Fe studies c/w ACD. TSH wnl. Agree w/ consideration for 1 unit of PRBCs on HD tomorrow. Echo noted - hyperdynamic LV. Anemia could be contributing. PEs?? (recent COVID, clots in L IJ / L subclavian, etc) Strongly consider CTA chest. Could coordinate this with HD tomorrow. Syncope at admission - etiology?? If we perform CTA and PEs are discovered PEs could have contributed. Jerome Grady MD Subjective Patient seen and examined at bedside. She denies any current pain. She has no shortness of breath. She denies any chest pain or tightness. Review of Systems Review of Systems: All systems reviewed & are unremarkable except as noted in Subjective Physical Exam Physical Exam: GENERAL : No acute distress EYES: No icterus, gaze conjugate NOSE: No evidence of epistaxis MOUTH: No lesions or candidiasis NECK: Supple LUNGS: CTA B/L, no wheezes, rales or rhonchi HEART: Regular, rate controlled ABDOMEN: Soft, NT, ND, BS Present EXTREMITIES: No LE edema, pedal pulses intact NEURO: A&OX3 Results & Data Results & Data ([facility] [place]) Vital Signs (Past 12 Hours) Vital Signs Temp Pulse Resp BP Pulse Ox 02/23/21 13:10 111 H 117/63 02/23/21 07:36 36.7 C 102 H 16 133/62 97 Laboratory Results 02/23/21 06:46 02/23/21 06:46 Laboratory Tests 02/23/21 06:46 INR 2.2 H Medications Administered Current Inpatient Medications Acetaminophen (Acetaminophen 325 Mg Tab) 650 mg PO Q4H PRN PRN Reason: pain/fever Stop: 03/05/21 15:29 Last Admin: 02/15/21 17:50 Dose: 650 mg Documented by: Lipase/Protease/Amylase (Pancreaze (Lipase 10,500u) Cap) 2 cap PO TIDM HANNAH Stop: 03/05/21 16:59 Last Admin: 02/23/21 17:31 Dose: 2 cap Documented by: Atorvastatin Calcium (Atorvastatin 20 Mg Tab) 20 mg PO HS HANNAH Stop: 03/05/21 20:59 Last Admin: 02/22/21 20:01 Dose: 20 mg Documented by: Carbidopa/Levodopa (Carbidopa/Levodop 10/100mg Tab) 1 tab PO TID HANNAH Stop: 03/05/21 15:29 Last Admin: 02/23/21 15:23 Dose: 1 tab Documented by: Citalopram Hydrobromide (Citalopram 20 Mg Tab) 10 mg PO QAM [facility] Stop: 03/06/21 08:59 Last Admin: 02/23/21 08:51 Dose: 10 mg Documented by: Dextrose (Dextrose 50% 50 Ml Syringe) 25 - 50 ml IV UD PRN; Protocol PRN Reason: Hypoglycemia Protocol Stop: 03/05/21 15:29 Epoetin Tera (Epoetin Tera 10,000 Units/Ml Vial) 10,000 units IV 0700 [facility] Stop: 02/24/21 16:00 Folic Acid (Folic Acid 1 Mg Tab) 1 mg PO QAM HANNAH Stop: 03/06/21 08:59 Last Admin: 02/23/21 08:52 Dose: 1 mg Documented by: Glucagon (Glucagon For Inj 1 Mg Vial) 1 mg SQ UD PRN; Protocol PRN Reason: Hypoglycemia Protocol Stop: 03/05/21 15:29 Glucose (Glucose 10 Tabs/Tube) 4 - 8 tabs PO UD PRN; Protocol PRN Reason: Hypoglycemia Protocol Stop: 03/05/21 15:29 Glucose (Glucose 40% Gel 15 Gm Tube) 15 - 30 gm PO UD PRN; Protocol PRN Reason: Hypoglycemia Protocol Stop: 03/05/21 15:29 Hydrocortisone (Hydrocortisone 2.5% Cr 30 Gm Tube) 1 appln EXT BID PRN PRN Reason: itching Stop: 03/15/21 22:07 Last Admin: 02/22/21 20:28 Dose: 1 appln Documented by: Hydroxyzine HCl (Hydroxyzine Hcl 10 Mg Tab) 10 mg PO TID PRN PRN Reason: Itching Stop: 03/05/21 15:29 Last Admin: 02/22/21 19:57 Dose: 10 mg Documented by: Heparin Sodium/Dextrose (Heparin Sodium/Dextrose) 25,000 units in 500 mls @ 13 mls/hr IV .Q24H [facility]; Protocol Stop: 03/23/21 14:44 Last Admin: 02/23/21 15:31 Dose: Not Given Documented by: Sodium Chloride (Nss 1000ml) 1,000 mls @ 0 mls/hr IV .Q0M PRN PRN Reason: For Hemodialysis Use ONLY Stop: 02/24/21 12:59 Iron Sucrose 100 mg/ Syringe 5 mls @ 1 mls/min IV TODAY@0700 [facility] Stop: 02/24/21 16:00 Magnesium Sulfate/Dextrose (Magnesium Sulfate / D5w) 1 gm in 100 mls @ 50 mls/hr IV Q2H [facility] Stop: 02/23/21 18:59 Last Admin: 02/23/21 17:33 Dose: 50 mls/hr Documented by: Insulin Aspart (Insulin Aspart 100 Units/Ml 3 Ml Pen) 0 units SC ACHS [facility]; Protocol Stop: 03/05/21 16:29 Last Admin: 02/23/21 17:36 Dose: 6 units Documented by: Insulin Human NPH (Insulin Human Nph) 40 units SC DAILY [facility] Stop: 03/25/21 08:59 Last Admin: 02/23/21 08:54 Dose: 40 units Documented by: Magnesium Oxide (Magnesium Oxide 400 Mg Tab) 400 mg PO BID [facility] Stop: 03/24/21 20:59 Last Admin: 02/23/21 08:52 Dose: 400 mg Documented by: Metoclopramide HCl (Metoclopramide Hcl 10 Mg Tablet) 10 mg PO ACHS [facility] Stop: 03/05/21 16:29 Last Admin: 02/23/21 17:31 Dose: 10 mg Documented by: Midodrine (Midodrine Hcl 2.5 Mg Tab) 5 mg PO TID@0900,1200,1700 [facility] Stop: 03/05/21 16:59 Last Admin: 02/23/21 17:31 Dose: 5 mg Documented by: Miscellaneous (Carbohydrates For Hypoglycemia ) 15 - 30 gm PO UD PRN PRN Reason: Hypoglycemia Protocol Stop: 03/05/21 15:29 Last Admin: 02/23/21 16:00 Dose: 15 gm Documented by: Mo Information (Pharmacy Glycemic Mgmt Consult) 1 ea N/A UD PRN PRN Reason: Consult Stop: 03/22/21 17:13 Ondansetron HCl (Ondansetron Inj 2 Mg/Ml 2 Ml Vial) 4 mg IV Q4H PRN PRN Reason: Nausea Stop: 03/05/21 15:29 Last Admin: 02/13/21 14:10 Dose: 4 mg Documented by: Pantoprazole Sodium (Pantoprazole 40 Mg Tab) 40 mg PO DAILY [facility] Stop: 03/06/21 08:59 Last Admin: 02/23/21 08:53 Dose: 40 mg Documented by: Warfarin Sodium (Warfarin Sod 7.5 Mg Tab) 7.5 mg PO DAILY@1600 [facility] Stop: 03/23/21 15:59 Last Admin: 02/23/21 15:36 Dose: 7.5 mg Documented by: PG Care Time/CCT Total # of Minutes Spent Total Time Spent with Patient: Total time spent is greater than 50% in co ordination of care (as documented) at patient's floor/unit and/or counseling patient: Coding Level of Care Code 56921 Subseq Hosp Care Lvl 3 Diagnoses Syncopal episodes R55 DVT (deep venous thrombosis) I82.409 Acute blood loss anemia D62 AV fistula occlusion T82.898A Encounter type: initial encounter ESRD (end stage renal disease) N18.6 COVID-19 U07.1 Diabetes E11.9 Parkinson disease G20 GERD (gastroesophageal reflux disease) K21.9 (1) AV fistula occlusion Encounter type: initial encounter Qualified Code(s): T82.898A - Other specified complication of vascular prosthetic devices, implants and grafts, initial encounter
[2021-02-23] MEDS: MAGNESIUM SULFATE / D5W 1 GM/100 ML BAG IV SCH ×2 (15:22→17:33)
[2021-02-23] MEDS: WARFARIN SOD 7.5 MG TAB PO SCH (15:36)
[2021-02-23] MEDS: ATORVASTATIN 20 MG TAB PO SCH (20:53)
[2021-02-24] MEDS: HYDROCORTISONE 2.5% CR 30 GM TUBE EXT PRN ×2 (01:56→07:15)
[2021-02-24 06:01] LABS: Hematocrit (blood only) 23.2 % (37-47); Hemoglobin 7.3 g/dL (12.0-16.0); Mean Corpuscular Hgb Conc 31.5 g/dL (32-36); Mean Corpuscular Volume 101.8 fL (80-100); Mean Platelet Volume 10.2 fL (7.4-10.4); Platelet Count 140 K/uL (130-400); RDW Standard Deviation 55.2 fL (36.4-46.3); Red Blood Count 2.28 M/uL (4.2-5.4); White Blood Count 6.73 K/uL (4.8-10.8)
[2021-02-24 06:22] LABS: Partial Thromboplastin Ratio 3.1
[2021-02-24 06:33] LABS: BUN Creatinine Ratio 28.2 (10-20); Calcium 8.6 mg/dl (8.5-10.1); Creatinine Clr Calc Pharmacy 14.5 ml/min; Est GFR (African American) 17.1 ml/min; Est GFR (Non-African American) 14.8 ml/min
[2021-02-24] MEDS ORDERED: SODIUM CHLORIDE 0.9% 1000ML 1,000 ML IV PRN (07:00)
[2021-02-24] MEDS ORDERED: EPOETIN ALFA 10,000 UNITS/ML VIAL IV SCH (07:00)
[2021-02-24] MEDS ORDERED: IRON SUCROSE 100 MG in SYRINGE 0 ML IV SCH (07:00)
[2021-02-24] MEDS: METOCLOPRAMIDE HCL 10 MG TABLET PO SCH ×4 (07:13→20:48)
[2021-02-24] MEDS: PANCREAZE (LIPASE 10,500U) CAP PO SCH ×3 (07:13→16:58)
[2021-02-24 07:17] LABS: Partial Thromboplastin Time 80.9 Seconds (21.0-31.0)
[2021-02-24] MEDS: CITALOPRAM 20 MG TAB PO SCH (08:07)
[2021-02-24] MEDS: FOLIC ACID 1 MG TAB PO SCH (08:07)
[2021-02-24] MEDS: MIDODRINE HCL 2.5 MG TAB PO SCH ×3 (08:07→16:56)
[2021-02-24] MEDS: CARBIDOPA/LEVODOP 10/100MG TAB PO SCH ×3 (08:07→20:47)
[2021-02-24] MEDS: PANTOprazole 40 MG TAB PO SCH (08:08)
[2021-02-24] MEDS: MAGNESIUM OXIDE 400 MG TAB PO SCH ×2 (08:11→20:48)
[2021-02-24] MEDS: INSULIN ASPART 100 UNITS/ML 3 ML PEN SC SCH ×4 (08:56→20:49)
[2021-02-24] MEDS: INSULIN HUMAN NPH SC SCH (08:58)
[2021-02-24 09:49] LABS: INR 2.8 (0.9-1.1); Prothrombin Time 26.4 Seconds (9.0-12.0)
--- NOTE | 2021-02-24 10:27 | Nephrology Progress Note ---
Date of Service February 24, 2021 Assessment & Plan (1) ESRD (end stage renal disease): Plan: HD MWF. BP and volume status acceptable. Electrolytes have been controlled. Adequate clearance with HD. HD planned for today but due to staffing may postpone treatment until tomorrow as needed. Medications are currently appropriately dosed for IHD. (2) AV fistula occlusion: Plan: TDC placed by Dr. Whiting on 02/11. Catheter is functioning well. Will require new AVF as outpatient. Remains on heparin gtt while transition to Coumadin for L IJ -- subclavian thrombosis. (3) Hypotension arterial: Plan: Maintained on Midodrine 5 mg TID. Volume status acceptable. (4) Acute blood loss anemia: Plan: Hgb stable. No signs of active bleeding. s/p PRBC transfusion on 02/12. Tsat acceptable at 30. Epogen to be provided with HD, 26883 units ordered with HD in addition to 100 mg venofer. Admission and Anticipated Discharge Date Admission Date: February 03, 2021 Subjective No acute events overnight. Federica feels well this AM. Denies pain. No shortness of breath. No fevers or chills. . Review of Systems Constitutional: no weight loss, no weight gain and no problem reported Eyes: no problem reported Ear, Nose, Mouth, Throat: no problem reported Respiratory: no problem reported Cardiovascular: no problem reported Gastrointestinal: no problem reported Musculoskeletal: no problem reported Integumentary: no problem reported Neurologic: no problem reported Psychiatric: no problem reported Endocrine: no problem reported Hematologic / Lymphatic: no problem reported Physical Exam Constitutional: well developed and + frail appearing; no acute distress Eyes: no scleral abnormality and no corneal abnormality ENMT: Mouth: + edentulous; no oral mucosal abnormality and oral mucous membranes not dry Neck: normal visual inspection and trachea midline Respiratory: normal respiratory effort Auscultation: lungs clear to auscultation bilaterally Cardiovascular: Rate/Rhythm: regular rate Heart Sounds: normal S1, normal S2 and + murmur Extremities: + AV fistula (Palpable cord without thrill or bruit LUE BC); no edema Musculoskeletal: Extremities: no cyanosis and no clubbing Skin: + turgor decreased; no lesions Neurologic: Motor/Sensory: no tremor and no asterixis Psychiatric: Orientation: alert and oriented x 3 Results & Data ([facility]) Vital Signs (Past 12 Hours) Vital Signs Temp Pulse Resp BP Pulse Ox 02/24/21 08:12 36.3 C L 93 H 19 132/68 95 02/24/21 07:33 36.2 C L 93 H 16 161/78 H 91 Laboratory Results Laboratory Results - last 24 hr 02/23/21 02/23/21 02/23/21 12:07 15:41 15:43 WBC RBC Hgb Hct MCV MCH MCHC RDW Std Deviation RDW Coeff of Tin Plt Count MPV PT INR APTT PTT Ratio Sodium Potassium Chloride Carbon Dioxide Anion Gap BUN Creatinine Est Cr Clr Drug Dosing Est GFR ( Amer) Est GFR (Non-Af Amer) BUN/Creatinine Ratio Glucose POC Glucose 81 47 L* 56 L* Calcium 02/23/21 02/23/21 02/23/21 16:02 16:18 17:13 WBC RBC Hgb Hct MCV MCH MCHC RDW Std Deviation RDW Coeff of Tin Plt Count MPV PT INR APTT PTT Ratio Sodium Potassium Chloride Carbon Dioxide Anion Gap BUN Creatinine Est Cr Clr Drug Dosing Est GFR ( Amer) Est GFR (Non-Af Amer) BUN/Creatinine Ratio Glucose POC Glucose 61 L* 80 68 L* Calcium 02/23/21 02/23/21 02/24/21 17:14 20:44 02:02 WBC RBC Hgb Hct MCV MCH MCHC RDW Std Deviation RDW Coeff of Tin Plt Count MPV PT INR APTT PTT Ratio Sodium Potassium Chloride Carbon Dioxide Anion Gap BUN Creatinine Est Cr Clr Drug Dosing Est GFR ( Amer) Est GFR (Non-Af Amer) BUN/Creatinine Ratio Glucose POC Glucose 82 75 135 H Calcium 02/24/21 02/24/21 02/24/21 05:40 05:40 05:40 WBC 6.73 RBC 2.28 L Hgb 7.3 L Hct 23.2 L MCV 101.8 H MCH 32.0 MCHC 31.5 L RDW Std Deviation 55.2 H RDW Coeff of Tin 15.0 H Plt Count 140 MPV 10.2 PT INR APTT 80.9 H* PTT Ratio 3.1 Sodium 134 L Potassium 5.0 D Chloride 100 Carbon Dioxide 27 Anion Gap 7.0 BUN 85 H Creatinine 3.02 H D Est Cr Clr Drug Dosing 14.5 Est GFR ( Amer) 17.1 Est GFR (Non-Af Amer) 14.8 BUN/Creatinine Ratio 28.2 H Glucose 174 H POC Glucose Calcium 8.6 02/24/21 02/24/21 05:40 08:25 WBC RBC Hgb Hct MCV MCH MCHC RDW Std Deviation RDW Coeff of Tin Plt Count MPV PT 26.4 H INR 2.8 H APTT PTT Ratio Sodium Potassium Chloride Carbon Dioxide Anion Gap BUN Creatinine Est Cr Clr Drug Dosing Est GFR ( Amer) Est GFR (Non-Af Amer) BUN/Creatinine Ratio Glucose POC Glucose 205 H Calcium PG Care Time/CCT Total # of Minutes Spent Total Time Spent with Patient: Total time spent is greater than 50% in coordination of care (as documented) at patient's floor/unit and/or counseling patient: Coding Level of Care Code 40094 Subseq Hosp Care Lvl 3 Diagnoses ESRD (end stage renal disease) N18.6 AV fistula occlusion T82.898A Encounter type: initial encounter Hypotension arterial I95.9 Acute blood loss anemia D62 (1) AV fistula occlusion Encounter type: initial encounter Qualified Code(s): T82.898A - Other specified complication of vascular prosthetic devices, implants and grafts, initial encounter
--- NOTE | 2021-02-24 11:34 | Pharmacy Report ---
Pharmacy Glycemic Short Note 2 - Date of Service February 24, 2021 - Glycemic Short BSG Results (Last 24 hours): 02/23/21 02/23/21 02/23/21 12:07 15:41 15:43 Glucose POC Glucose 81 47 L* 56 L* 02/23/21 02/23/21 02/23/21 16:02 16:18 17:13 Glucose POC Glucose 61 L* 80 68 L* 02/23/21 02/23/21 02/24/21 17:14 20:44 02:02 Glucose POC Glucose 82 75 135 H 02/24/21 02/24/21 05:40 08:25 Glucose 174 H POC Glucose 205 H OUTPATIENT ANTIDIABETIC REGIMEN: * Lantus 25 units SQ HS * Humalog per scale * A1c = 6.8% on 02/04/21 * However, this result is likely somewhat unreliable in ESRD patients d/t in teractions between the A1c analyzing technique and high levels of urea in ESRD, reduced RBC life span, iron deficiency anemia, and EPO administration. HbA1c > 7.5% in ESRD patient may overestimate the extent of hyperglycemia in ESRD patients. ASSESSMENT: 02/24 * Patient's BSGs yesterday were [id number]. Fasting today was 205 mg/dL. * Patient received 94 units of insulin yesterday (40 units of basal and 54 units of bolus). * Patient had hypoglycemic episode at dinner which may have been due to combo of large doses of Novolog and NPH. * Will reduce NPH to 30 units. Give 10 units at dinnertime tonight. Overnight hypoglycemia may have been due to large doses of Novolog at HS. Patient's fasting is improved today but still elevated. NPH does not typically last 24 hours. * It appears that the patient requires tight carbohydrate coverage but little correctional as patient tends to overcorrect when hyperglycemic. 02/23 * Patient with hypoglycemia again, this time at 1am, BSG 55mg/dl - change Lantus to NPH since second episode of hypoglycemia overnight/fasting * Blood sugars still high throughout the day, QAM NPH will cover some of this, tighten CF/CR 02/22 * Patient received 85 units insulin yesterday, 15 units Lantus, 70 units NovoLog * Hyperglycemia again last night prior to dinner, may be d/t insufficient basal insulin on board, increase basal and move to more 50:50 basal/bolus ratio of insulin * Hypoglycemia, BSG 62mg/dl this morning likely d/t excess correctional insulin, loosen CF * No other changes at this time 02/21 * Hyperglycemia last night prior to dinner for unknown reason; may have no had adequate CHO coverage at lunch vs dextrose containing dialysate? * Hyperglycemia resolved with current CF/CR scale; BSG 312 --> 107 mg/dl with 26 units of NovoLog. * AM fasting BSG is in goal range with reduced outpatient insulin dosing. * No changes needed at this time. PLAN FOR INPATIENT GLYCEMIC CONTROL: * Basal insulin * DC Lantus * NPH 30 units SQ QAM and 10 units SQ qPM * Bolus insulin * NovoLog per scale ACHS or Q6hrs while NPO * Goal Range: Low 110 mg/dL - High 140 mg/dL * Correction Factor: 25 mg/dL/unit * Nutritional / Prandial insulin per carb ratio of 1 unit per 4 grams CHO consumed PLAN FOR DISCHARGE: * No changes needed at DC unless experiencing hypoglycemia at home
[2021-02-24] MEDS: hydrOXYzine HCl 10 MG TAB PO PRN (13:06)
[2021-02-24 13:49] LABS: Partial Thromboplastin Ratio 1.9
[2021-02-24 13:51] LABS: Partial Thromboplastin Time 50.8 Seconds (21.0-31.0)
[2021-02-24] MEDS ORDERED: INSULIN HUMAN NPH SC SCH (16:30)
[2021-02-24] MEDS: WARFARIN SOD 7.5 MG TAB PO SCH (16:57)
--- NOTE | 2021-02-24 17:29 | Hospitalist Progress Note ---
Date of Service February 24, 2021 Assessment & Plan (1) Syncopal episodes: Plan: * Previously has had several, 10-second syncopal episodes here. No suspicion of seizures * Thought to be related to the fact that her hemodialysis had been increased. Bumex has since been stopped. Patient remains euvolemic (with nephrology managing hemodialysis sessions) * Orthostatics were negative on 02/16. * Slow, careful transitions. Out of bed with assistance. Hemodialysis to manage her fluid balance * echo done and unremarkable * No changes to treatment plan today. Continue on telemetry until discharge. Medically stable to be discharged (2) DVT (deep venous thrombosis): Plan: * Doppler of the bilateral internal jugular veins on 02/10 showed deep venous thrombus within the mid to distal left internal jugular vein which extends into the left subclavian vein. * Started heparin gtt on 02/10 (which was stopped lastnight with presumption that her INR would be therapeutic). Resumed on 02/21 * Started warfarin on 02/13 (waited 1 extra day due to anemia). Monitor INR. Will need to transition fully while in the hospital because given her poor kidney function, she cannot use Lovenox and no DOACs acceptable (after discussion with hematology and Dr. Shaw). * INR now therapeutic at 2.2 . Continue Coumadin at 7.5mg. * Bridge therapy with overlap x48 hours. If INR remains therapeutic, can discontinue heparin drip on Wednesday02/25/2021 (3) Acute blood loss anemia: Plan: * Hemoglobin is now 7.2 g/Abelardo. This is stable. Patient is also hemodynamically stable. In addition, she is asymptomatic. Did discuss with Dr. Moreno hold off on transfusion for now with follow-up labs in a.m. * Hemoglobin ~8 - 9 baseline, likely due to chronic kidney disease and chronic disease. However, between surgery (for her tunneled-line on 02/11) and losing about 500 mL of blood in the dialysis machine on 02/11 when her line clotted, she dropped to 6.4 on 02/12. No melenic or bloody stools, no bruising, no abdominal pain to indicate RP bleed (or reason for an RP bleed) -> No signs of other bleeding. * Transfused 1 unit of PRBCs on 02/12 * Procrit given on 02/11 and 02/13. Nephrology will order additional doses of Procrit as needed * iron level was ordered and normal * stool for occult blood reported as negative. (4) AV fistula occlusion: Plan: * AVF Duplex on admission showed occlusion of her LUE fistula. Likely occluded since HD session on Wednesday, 01/31. * Vascular surgery on board -> Tunneled Permacath done on 02/11. * had some bleeding at the site on 02/13 after an HD session. Used TXA-soaked gauze and paused heparin which stopped the bleeding nicely. Looked good on 02/16. no bleeding since * plan is for new Fistula as an OP (5) ESRD (end stage renal disease): Plan: * Per patient, she follows with [facility] in [place]. * dialysis increased from twice a week to 3x/week. Tolerating well * Continue midodrine * Had been on Bumex 2 mg PO daily on admission (when she looked a bit hypervolemic). Stopped on 02/16 with increased weekly dialysis (6) COVID-19: Plan: Reports being diagnosed ~01/21/2021 with no symptoms at the time (routine SNF testing). A few days later, developed cough which has persisted. Otherwise, no symptoms. - Finished isolation precautions on 02/10 (7) Diabetes: Plan: A1c was 6.8% this admission. Does not know her regimen at [facility]. - Long-acting dropped to 15 units HS (from either 20 units, 25 units, or 45 units; it is unclear and patient doesn't know). -Continue management with pharmacy glycemic control consult. Their input appreciated Basal insulin Lantus discontinued NPH 40 units SQ QAM Bolus insulin NovoLog per scale ACHS or Q6hrs while NPO Goal Range: Low 110 mg/dL - High 140 mg/dL Correction Factor: 12 mg/dL/unit Nutritional / Prandial insulin per carb ratio of 1 unit per 3 grams CHO consumed (8) Parkinson disease: Plan: Presumed diagnosis. - Continue Sinemet (9) GERD (gastroesophageal reflux disease): Plan: - Continue PPI Dispo: Complex arrangement where she was at [facility] ([facility]) -> [facility] -> [facility] (due to her Covid infection) -> [facility]. Plan is for D/C back to pc with additional services (home PT/OT and VN): at this point, remains on heparin gtt and coumadin. awaiting therapeutic state. once therapeutic, will need overlap x 48 hours. If patient remains therapeutic on Coumadin, should be ready for discharge on 02/25/2021 Note: She does not want her sister given updates and only wants us to call her brother "if we have to." Plan: plan of care will be D/W Dr. Grady Admission and Anticipated Discharge Date Admission Date: February 03, 2021 Subjective Patient seen on daily rounds today. Vocalizes no significant complaints or concerns. Remains on heparin with Coumadin (INR therapeutic as of 02/23). H&H remains stable (hemoglobin 7.3). Hemoglobin 8-9 at baseline. Has been in the mid sevens since 02/19. Nephrology on board to manage fluid balance. For hemodialysis tomorrow. Otherwise, patient denies fevers, chills, chest pain, shortness of breath, abdominal pain, nausea or vomiting. Review of Systems Review of Systems: All systems reviewed and are unremarkable except as noted in HPI and below Denies fevers, chills, headache, nasal congestion, sore throat, cough, chest pain, shortness of breath, abdominal pain, nausea, vomiting, dysuria, hematuria, frequency, skin lesions or rashes. Physical Exam Physical Exam: General: Resting comfortably in her hospital bed. NAD. Neck: No JVD. Negative hepatojugular reflex Cardiac: RRR with 1/6 to 2/6 CHRISTOPHER Lungs: CTA without W/R/R Abdomen: Normoactive X4. Soft and nontender in all quadrants. Extremities: No peripheral clubbing cyanosis or edema Neuro: A&O X4 cranial nerves II through XII are grossly intact no focal neuro deficits Skin: No obvious skin lesions or rashes Results & Data Results & Data ([facility]) Vital Signs (Past 12 Hours) Vital Signs Temp Pulse Pulse Resp BP Pulse Ox 02/24/21 15:21 36.8 C 104 H 16 138/55 L 95 02/24/21 08:12 36.3 C L 93 H 19 132/68 95 02/24/21 07:33 36.2 C L 93 H 16 161/78 H 91 Laboratory Results 02/24/21 05:40 02/24/21 05:40 INR 2.8 (0.9-1.1) H 02/24/21 05:40 PG Care Time/CCT Total # of Minutes Spent Total Time Spent with Patient: Total time spent is greater than 50% in coordination of care (as documented) at patient's floor/unit and/or counseling patient: [place] [address] Subseq Hosp Care Lvl 1 Patient Type Established History Problem Focused Exam Problem Focused Diagnoses Syncopal episodes R55 DVT (deep venous thrombosis) I82.409 Acute blood loss anemia D62 AV fistula occlusion T82.898A Encounter type: initial encounter ESRD (end stage renal disease) N18.6 COVID-19 U07.1 Diabetes E11.9 Parkinson disease G20 GERD (gastroesophageal reflux disease) K21.9 (1) AV fistula occlusion Encounter type: initial encounter Qualified Code(s): T82.898A - Other sp ecified complication of vascular prosthetic devices, implants and grafts, initial encounter
[2021-02-24] MEDS: HEPARIN SODIUM/DEXTROSE 25,000 UNITS/500 ML BAG IV SCH (19:09)
[2021-02-24] MEDS: ATORVASTATIN 20 MG TAB PO SCH (20:47)
[2021-02-25] MEDS: HYDROCORTISONE 2.5% CR 30 GM TUBE EXT PRN (04:11)
[2021-02-25] MEDS: hydrOXYzine HCl 10 MG TAB PO PRN ×2 (04:11→13:03)
[2021-02-25 06:30] LABS: Basophils # (auto) 0.01 K/uL (0-0.2); Basophils % (auto) 0.2 %; Eosinophils # (auto) 0.65 K/uL (0-0.5); Eosinophils % (auto) 10.2 %; Hemoglobin 7.7 g/dL (12.0-16.0); Immature Granulocytes # (auto) 0.06 K/uL (0.00-0.02); Immature Granulocytes % (auto) 0.9 %; Lymphocytes # (auto) 1.16 K/uL (1.2-3.4); Lymphocytes % (auto) 18.2 %; Mean Corpuscular Hemoglobin 32.2 pg (25-34); Mean Corpuscular Hgb Conc 32.1 g/dL (32-36); Mean Corpuscular Volume 100.4 fL (80-100); Mean Platelet Volume 10.1 fL (7.4-10.4); Monocytes # (auto) 0.59 K/uL (0.11-0.59); Monocytes % (auto) 9.3 %; Neutrophils % (auto) 61.2 %; Platelet Count 169 K/uL (130-400); RDW Coefficient of Variation 15.2 % (11.5-14.5); RDW Standard Deviation 55.2 fL (36.4-46.3); Red Blood Count 2.39 M/uL (4.2-5.4); White Blood Count 6.37 K/uL (4.8-10.8)
[2021-02-25 06:53] LABS: Partial Thromboplastin Ratio 3.2; Prothrombin Time 28.2 Seconds (9.0-12.0)
[2021-02-25 07:06] LABS: Basophilic Stippling 1+; Poikilocytosis Present; Polychromasia 1+; Toxic Granulation 1+; Toxic Vacuolation 2+
[2021-02-25] MEDS: CARBIDOPA/LEVODOP 10/100MG TAB PO SCH ×2 (08:09→13:03)
[2021-02-25] MEDS: MAGNESIUM OXIDE 400 MG TAB PO SCH (08:09)
[2021-02-25] MEDS: PANCREAZE (LIPASE 10,500U) CAP PO SCH ×2 (08:09→13:03)
[2021-02-25] MEDS: FOLIC ACID 1 MG TAB PO SCH (08:10)
[2021-02-25] MEDS: METOCLOPRAMIDE HCL 10 MG TABLET PO SCH ×2 (08:10→13:03)
[2021-02-25] MEDS: MIDODRINE HCL 2.5 MG TAB PO SCH ×2 (08:10→11:58)
[2021-02-25] MEDS: INSULIN HUMAN NPH SC SCH (08:10)
[2021-02-25] MEDS: PANTOprazole 40 MG TAB PO SCH (08:10)
[2021-02-25] MEDS: CITALOPRAM 20 MG TAB PO SCH (08:10)
[2021-02-25] MEDS: INSULIN ASPART 100 UNITS/ML 3 ML PEN SC SCH ×2 (08:44→13:07)
--- NOTE | 2021-02-25 10:43 | Pharmacy Report ---
Pharmacy Glycemic Short Note 2 - Date of Service February 25, 2021 - Glycemic Short BSG Results (Last 24 hours): 02/24/21 02/24/21 02/24/21 12:23 17:16 20:32 POC Glucose 298 H 99 180 H 02/25/21 08:02 POC Glucose 182 H OUTPATIENT ANTIDIABETIC REGIMEN: * Lantus 25 units SQ HS * Humalog per scale * A1c = 6.8% on 02/04/21 * However, this result is likely somewhat unreliable in ESRD patients d/t interactions between the A1c analyzing technique and high levels of urea in ESRD, reduced RBC life span, iron deficiency anemia, and EPO administration. HbA1c > 7.5% in ESRD patient may overestimate the extent of hyperglycemia in ESRD patients. ASSESSMENT: 02/25: * Patient received total of 68 units of insulin yesterday; 30 units of basal + 28 units bolus. * Fasting BSG today = 182 mg/dl. Post prandial BSGs well controlled last night. NPH dose for dinner was cancelled. * Novolog CR was loosened to 8 yesterday. Tightened this back to 6 this AM. * Pt did not receive dialysis as expected yesterday. He is to get HD today instead. * Expect BSG to trend down after dialysis, so discontinued the NPH insulin with dinner today. 02/24 * Patient's BSGs yesterday were [id number]. Fasting today was 205 mg/dL. * Patient received 94 units of insulin yesterday (40 units of basal and 54 units of bolus). * Patient had hypoglycemic episode at dinner which may have been due to combo of large doses of Novolog and NPH. * Will reduce NPH to 30 units. Give 10 units at dinnertime tonight. Overnight hypoglycemia may have been due to large doses of Novolog at HS. Patient's fasting is improved today but still elevated. NPH does not typically last 24 hours. * It appears that the patient requires tight carbohydrate coverage but little correctional as patient tends to overcorrect when hyperglycemic. 02/23 * Patient with hypoglycemia again, this time at 1am, BSG 55mg/dl - change Lantus to NPH since second episode of hypoglycemia overnight/fasting * Blood sugars still high throughout the day, QAM NPH will cover some of this, tighten CF/CR 02/22 * Patient received 85 units insulin yesterday, 15 units Lantus, 70 units NovoLog * Hyperglycemia again last night prior to dinner, may be d/t insufficient basal insulin on board, increase basal and move to more 50:50 basal/bolus ratio of insulin * Hypoglycemia, BSG 62mg/dl this morning likely d/t excess correctional insulin, loosen CF * No other changes at this time 02/21 * Hyperglycemia last night prior to dinner for unknown reason; may have no had adequate CHO coverage at lunch vs dextrose containing dialysate? * Hyperglycemia resolved with current CF/CR scale; BSG 312 --> 107 mg/dl with 26 units of NovoLog. * AM fasting BSG is in goal range with reduced outpatient insulin dosing. * No changes needed at this time. PLAN FOR INPATIENT GLYCEMIC CONTROL: * Basal insulin * DC Lantus * NPH 30 units SQ QAM; d/c NPH with dinner * Bolus insulin * NovoLog per scale ACHS or Q6hrs while NPO * Goal Range: Low 110 mg/dL - High 140 mg/dL * Correction Factor: 25 mg/dL/unit * Nutritional / Prandial insulin per carb ratio of 1 unit per 6 grams CHO consumed PLAN FOR DISCHARGE: * No changes needed at DC unless experiencing hypoglycemia at home
--- NOTE | 2021-02-25 12:38 | Nephrology Progress Note ---
Date of Service February 25, 2021 Assessment & Plan (1) ESRD (end stage renal disease): Plan: HD MWF. Orders for HD today entered into EMR and reviewed with dialysis nurse. Federica was seen and evaluated during hemodialysis. Tolerating treatment well with adequate Qb. BP and volume status acceptable. Medications are currently appropriately dosed for IHD. (2) AV fistula occlusion: Plan: TDC placed by Dr. Whiting on 02/11. Catheter is functioning well. Will require new AVF as outpatient. (3) Hypotension arterial: Plan: Maintained on Midodrine 5 mg TID. Volume status acceptable. (4) Acute blood loss anemia: Plan: Hgb stable. No signs of active bleeding. s/p PRBC transfusion on 02/12. Tsat acceptable at 30. Epogen to be provided with HD, 65166 units in addition to 100 mg venofer. Admission and Anticipated Discharge Date Admission Date: February 03, 2021 Subjective No acute events overnight. No complaints this morning. Federica was seen prior to and during hemodialysis. She was tolerating HD well. Qb at goal. No complications with treatment. Review of Systems Constitutional: no weight loss, no weight gain and no problem reported Eyes: no problem reported Ear, Nose, Mouth, Throat: no problem reported Respiratory: no problem reported Cardiovascular: no problem reported Gastrointestinal: no problem reported Musculoskeletal: no problem reported Integumentary: no problem reported Neurologic: no problem reported Psychiatric: no problem reported Endocrine: no problem reported Hematologic / Lymphatic: no problem reported Physical Exam Constitutional: well developed and + frail appearing; no acute distress Eyes: no scleral abnormality and no corneal abnormality ENMT: Mouth: + edentulous; no oral mucosal abnormality and oral mucous membranes not dry Neck: normal visual inspection and trachea midline Respiratory: normal respiratory effort Auscultation: lungs clear to auscultation bilaterally Cardiovascular: Rate/Rhythm: regular rate Heart Sounds: normal S1, normal S2 and + murmur Extremities: + AV fistula (Palpable cord without thrill or bruit LUE BC); no edema Musculoskeletal: Extremities: no cyanosis and no clubbing Skin: + turgor decreased; no lesions Neurologic: Motor/Sensory: no tremor and no asterixis Psychiatric: Orientation: alert and oriented x 3 Results & Data ([facility]) Vital Signs (Past 12 Hours) Vital Signs Temp Pulse Pulse Pulse Resp BP BP 02/25/21 12:20 93 H 95/48 L 02/25/21 12:00 100 H 95/76 L 02/25/21 11:40 103 H 63/48 L 02/25/21 11:20 100 H 82/42 L 02/25/21 11:00 101 H 71/34 L 02/25/21 10:40 47 L 113/96 02/25/21 10:00 94 H 124/98 02/25/21 09:42 51 L 91/65 L 02/25/21 09:20 106 H 82/42 L 02/25/21 09:05 102 H 123/97 02/25/21 09:00 37.3 C 96 H 02/25/21 07:24 36.8 C 107 H 16 113/66 Pulse Ox 02/25/21 12:20 02/25/21 12:00 02/25/21 11:40 02/25/21 11:20 02/25/21 11:00 02/25/21 10:40 02/25/21 10:00 02/25/21 09:42 02/25/21 09:20 02/25/21 09:05 02/25/21 09:00 02/25/21 07:24 96 Laboratory Results Laboratory Results - last 24 hr 02/24/21 02/24/21 02/24/21 13:15 17:16 20:32 WBC RBC Hgb Hct MCV MCH MCHC RDW Std Deviation RDW Coeff of Tin Plt Count MPV Immature Gran % (Auto) Neut % (Auto) Lymph % (Auto) [place] % (Auto) Eos % (Auto) Baso % (Auto) Neut # (Auto) Lymph # (Auto) [place] # (Auto) Eos # (Auto) Baso # (Auto) Immature Gran # (Auto) Toxic Granulation Toxic Vacuolation Polychromasia Poikilocytosis Basophilic Stippling PT INR APTT 50.8 H* PTT Ratio 1.9 POC Glucose 99 180 H 02/25/21 02/25/21 02/25/21 06:08 06:08 08:02 WBC 6.37 RBC 2.39 L Hgb 7.7 L Hct 24.0 L MCV 100.4 H MCH 32.2 MCHC 32.1 RDW Std Deviation 55.2 H RDW Coeff of Tin 15.2 H Plt Count 169 MPV 10.1 Immature Gran % (Auto) 0.9 Neut % (Auto) 61.2 Lymph % (Auto) 18.2 [place] % (Auto) 9.3 Eos % (Auto) 10.2 Baso % (Auto) 0.2 Neut # (Auto) 3.90 Lymph # (Auto) 1.16 L [place] # (Auto) 0.59 Eos # (Auto) 0.65 H Baso # (Auto) 0.01 Immature Gran # (Auto) 0.06 H Toxic Granulation 1+ Toxic Vacuolation 2+ Polychromasia 1+ Poikilocytosis Present Basophilic Stippling 1+ PT 28.2 H INR 3.0 H APTT 83.0 H* PTT Ratio 3.2 POC Glucose 182 H PG Care Time/CCT Total # of Minutes Spent Total Time Spent with Patient: Total time spent is greater than 50% in coordination of care (as documented) at patient's floor/unit and/or counseling patient: Coding Level of Care Code 71835 Subseq Hosp Care Lvl 3 Diagnoses ESRD (end stage renal disease) N18.6 AV fistula occlusion T82.898A Encounter type: initial encounter Hypotension arterial I95.9 Acute blood loss anemia D62 (1) AV fistula occlusion Encounter type: initial encounter Qualified Code(s): T82.898A - Other specified complication of vascular prosthetic devices, implants and grafts, initial encounter
--- NOTE | 2021-02-25 17:52 | Discharge Summary ---
Date of Service February 25, 2021 Admission HPI Per Admitting Provider 70yo F w/ hx of DM and ESRD who presents to the hospital with hypoxemia from her SNF. She reports that she got routine testing for Covid around 01/21/2021 at [facility]. A few days after that, she reports she developed a cough that has continued to today. Otherwise, she denies fevers/chills/sweats, nasal congestion, shortness of breath, diarrhea, constipation or other issues from the Covid. On Wednesday, she was at her HD session, and they were unable to run her session due to flow issues. She was sent back to [facility] without her session. Today, she was noted to be hypoxemic and was sent to the ED for evaluation. She denies any worsening of her cough today and denies shortness of breath during my inteview. Principal Diagnosis 1. Acute on compensated CHFcurrently compensated 2. End-stage renal diseasedialysis increased to 3 times a week 3. AV fistula occlusionnow with tunneled permacath 4. Acute on chronic anemia 5. DVT involving the left IJ which extends to the subclavian vein 6. Syncopal eventsuspect related to volume contraction with increased dialysis. Bumex subsequently stopped 7. Remote history of Covid01/21/21no reported symptoms Discharge Exam General: Resting comfortably in her hospital bed. NAD. Neck: No JVD. Negative hepatojugular reflex Cardiac: RRR with 1/6 to 2/6 CHRISTOPHER Lungs: CTA without W/R/R Abdomen: Normoactive X4. Soft and nontender in all quadrants. Extremities: No peripheral clubbing cyanosis or edema Neuro: A&O X4 cranial nerves II through XII are grossly intact no focal neuro deficits Skin: No obvious skin lesions or rashes Discharge Data Allergies Allergy/AdvReac Type Severity Reaction Status Date / Time aspirin Allergy Unknown as Per Unverified 02/03/21 10:59 [facility] ibuprofen Allergy Unknown as Per Unverified 02/03/21 10:59 [facility] Iodinated Contrast Media Allergy Unknown as Per Unverified 02/03/21 10:59 [facility] DECLAN Consultations 02/03/21 12:10 ED Decision to Admit Stat 02/03/21 13:23 Consult Nephrology Routine Assessment & Plan (1) ESRD (end stage renal disease): Plan: HD MWF. Orders for HD today entered into EMR and reviewed with dialysis nurse. Federica was seen and evaluated during hemodialysis. Tolerating treatment well with adequate Qb. BP and volume status acceptable. Medications are currently appropriately dosed for IHD. (2) AV fistula occlusion: Plan: TDC placed by Dr. Whiting on 02/11. Catheter is functioning well. Will require new AVF as outpatient. (3) Hypotension arterial: Plan: Maintained on Midodrine 5 mg TID. Volume status acceptable. (4) Acute blood loss anemia: Plan: Hgb stable. No signs of active bleeding. s/p PRBC transfusion on 02/12. Tsat acceptable at 30. Epogen to be provided with HD, 03470 units in addition to 100 mg venofer. Consult Vascular Surgery Routine 02/10: Assessment & Plan (1) ESRD (end stage renal disease): Pt discussed with Dr Whiting. L IJ line will need to be removed today after HD in order to possibly place permcath there tomorrow. D/T difficulties production line welder encountered upon attempting to place temp HD cath eter in R IJ, as well as presence of L IK temp line, will obtain venous US of BL IJ's prior to placing permcath in OR tomorrow. US to be done AFTER L IJ removal today. Planning on permcath insertion tomorrow AM. Pt agreeable. Patient for permcath insertion today. USN showed thrombosis of left int jug vein and patent right internal jugular vein with distal narrowing. I have discussed the risks options and benefits of the procedure with the patient. The patient understands the risks options and benefits and agrees to the procedure. I have examined the patient, reviewed the History & Physical and in the interval since the performance of the History & Physical I have noted the following changes of clinical significance: no changes noted on 02/11: Insertion of Perm Catheter, Right Internal Jugular Approach, Ultrasound Localization of Right Internal Jugular Vein, Fluoroscopy for positioning 02/04/21 10:42 Consult Light Industrial Supervisor Routine Note Procedure date: Noted above Procedure: Temporary hemodialysis catheter Pre-procedure indication: Need for temporary hemodialysis access Post-procedure Diagnosis: same as above Procedures Performed Operation Date: 02/11/21 08:00 Actual Procedures p Insertion of Perm Catheter, Right Internal Jugular Approach, Ultrasound Localization of Right Internal Jugular Vein, Fluoroscopy for positioning, Moderate sedation [id number](Right) - Les Whiting MD Ordered Studies 02/03/21 09:58 US hemodialysis access Stat FINDINGS: A left upper AV fistula is noted. This likely extends from the brachial artery to basilic vein. There is flow within the proximal anastomosis. Peak systolic velocity is 128 cm/s. However, no flow is identified within the remainder of the left upper extremity AV fistula. This represents fistula occlusion. IMPRESSION: Occluded left upper extremity AV fistula. 02/10/21 14:00 US venous doppler UE BI Routine IMPRESSION: 1. Nonocclusive deep venous thrombus within the mid to distal left internal jugular vein which extends into the left subclavian vein. Occlusive deep venous thrombus within the left subclavian vein. 2. Right internal jugular vein patent although narrowed distally. 02/11/21 07:28 EV cvc insrt tnnl with prt/ruling technician Urgent US EV guide vascular access Urgent Hospital Course (1) CHF (congestive heart failure): * Patient initially presented with shortness of breath and hypoxemia related to uncompensated CHF given the fact that she had missed hemodialysis sessions from occluded fistula * She acutely had a temporary site and ultimately dialysis provided * Was getting dialysis twice a week prior to presentation but nephrology recommended increasing to 3 times weekly which was carried out throughout her hospital stay * Patient did have syncopal events which was thought to be due to subtle volume depletion. Her Bumex subsequently stopped given increase in dialysis sessions. No subsequent syncopal events. * Fluid status managed by nephrology while in house. Clinically compensated * Did have a dialysis session on 02/25. Was scheduled for 02/24; however, no availability. She was hemodynamically stable to wait until 02/25. Patient discharged on the day of hemodialysis as she had been eagerly awaiting discharge to home. * Patient's hemodialysis schedule is Wednesday, Wednesday, Wednesday. Since she had a dialysis session today, I did reach out to nephrology to ensure that patient can wait until Wednesday for her next dialysis session. Nephrology agreeable to this plan as no need for repeat dialysis session tomorrow. (2) AV fistula occlusion: * AVF Duplex on admission showed occlusion of her LUE fistula. Likely occluded since HD session on Wednesday, 01/31. * Vascular surgery on board -> Tunneled Permacath done on 02/11. * had some bleeding at the site on 02/13 after an HD session. Used TXA-soaked gauze and paused heparin which stopped the bleeding nicely. Looked good on 02/16. no bleeding since * plan is for new Fistula as an OP (3) DVT (deep venous thrombosis): * Doppler of the bilateral internal jugular veins on 02/10 showed deep venous thrombus within the mid to distal left internal jugular vein which extends into the left subclavian vein. * Could not use Lovenox or DOAC's given end-stage renal disease * Started heparin gtt on 02/10 (which was stopped lastnight with presumption radha t her INR would be therapeutic). Resumed on 02/21 * Started warfarin on 02/13 (waited 1 extra day due to anemia). Monitor INR. Will need to transition fully while in the hospital because given her poor kidney function, she cannot use Lovenox and no DOACs acceptable (after discussion with hematology and Dr. Shaw). * INR therapeutic as of 02/23. * Overlap of heparin/Coumadin continued X 48 hours * Patient's INR was slightly subtherapeutic at 1.8 with Coumadin 5 mg daily. This was increased to 7.5 mg and after 3 doses, INR is 3.0. Would advise 5 mg on all days except for 7.5 mg on Tuesdays and . Patient should have a follow-up INR in 1 week. Further titration at discretion of PCP. * Lengthy discussion with patient regarding importance of consistency in vitamin K rich foods as this will affect INR. In addition, lengthy discussion with patient regarding importance of discussing with PCP before addition of any new medications (including [id number]) as many medications can interact with Coumadin. (4) Acute blood loss anemia: * Hemoglobin is now 7.7 g/Abelardo. This is stable. Patient is also he modynamically stable. In addition, she is asymptomatic. Did discuss with Dr. Moreno hold off on transfusion for now * Hemoglobin ~8 - 9 baseline, likely due to chronic kidney disease and chronic disease. However, between surgery (for her tunneled-line on 02/11) and losing about 500 mL of blood in the dialysis machine on 02/11 when her line clotted, she dropped to 6.4 on 02/12. No melenic or bloody stools, no bruising, no abdominal pain to indicate RP bleed (or reason for an RP bleed) -> No signs of other bleeding. * Transfused 1 unit of PRBCs on 02/12 * Procrit given on 02/11 and 02/13 and 02/25. Nephrology will order additional doses of Procrit as needed * iron level was ordered and normal * stool for occult blood reported as negative. (5) ESRD (end stage renal disease): * Per patient, she follows with [facility] in [place]. * dialysis increased from twice a week to 3x/week. Tolerating well * Continue midodrine * Had been on Bumex 2 mg PO daily on admission (when she looked a bit hypervolemic). Stopped on 02/16 with increased weekly dialysis (6) Syncopal episodes: * Previously has had several, 10-second syncopal episodes here. No suspicion of seizures * Thought to be related to the fact that her hemodialysis had been increased. Bumex has since been stopped. Patient remains euvolemic (with nephrology managing hemodialysis sessions) * Orthostatics were negative on 02/16. * Slow, careful transitions. Out of bed with assistance. Hemodialysis to manage her fluid balance * echo done and unremarkable * No changes to treatment plan today. Continue on telemetry until discharge. Medically stable to be discharged (7) COVID-19: Reports being diagnosed ~01/21/2021 with no symptoms at the time (routine SNF testing). A few days later, developed cough which has persisted. Otherwise, no symptoms. - Finished isolation precautions on 02/10 (8) Diabetes: A1c was 6.8% this admission. resume lantus/log (9) Parkinson disease: Presumed diagnosis. - Continue Sinemet (10) GERD (gastroesophageal reflux disease): - Continue PPI Dispo: Complex arrangement where she was at [facility] ([facility] -> [facility] -> [facility] (due to her Covid infection) -> [facility]. Plan is for D/C back to with additional services (home PT/OT and VN): Note: She does not want her sister given updates and only wants us to call her brother "if we have to." plan of care will be D/W Dr. Denise Total Time Total Time Spent Total Time Spent (In Minutes): 60 Discharge Plan Discharge Items Patient Disposition: Personal Longterm Reason For Visit: AV FISTULA FIALURE HYPOXEMIA, COVID Discharge Diagnosis: 1. AV Fistula Occlusion 2. ESRD-- dialysis increased to 3x/week 3. Left Internal Jugular DVT-- now on anticoagulation therapy 4. Anemia- stable 5. Presyncope- resolved with discontinuation of Bumex Activity: Resume your previous activity Non-emergency contact: Primary Care Provider and Proof Sorter Call non-emergency contact if: you have any medication questions and your symptoms worsen Follow-up/Referrals: Phan Ruiz [Primary Care Provider] - Diet: Low Potassium (2gm) Addtl Attending Provider Instructions: Patient with indwelling permacath to Right IJ - You were hospitalized given some volume overload related to AV fistuala not working (occlusion) which postponed you getting a dialysis session prior to arrival - Your dialysis sessions have been increased to 3x/week (Wed/Wed/Wed) - Given the increase in your Dialysis, it was felt that you no longer needed the Bumex so this has been stopped - you were found to have a blood clot in the vein in the left side of your neck. This requires blood thinner (Coumadin). Coumadin 5mg on Wed, Wed, Wednesday, Sat and Sun Coumadin 7.5mg on and - you need to have a repeat INR (which is a "coumadin level") drawn in 1 week. Goal range is 2.0-3.0. You are 3.0 today (02/25/21). Further titration of coumadin at discretion of your PCP - Coumadin is a blood thinner and thus, will pose increased risk of bleeing with minor cuts/scratches. For minor injury- apply direct pressure for 10 min. If unable to stop bleeding, seek medical attention. For major injury, go to nearest emergency dept. - without treatment of this blood clot, it can potentially move to the lung (which can be ) so the benefit of treatment greatly outweighs the risk - you need to maintain a CONSISTENT diet as foods rich in vitamin K can interfere with the coumadin. - Also, it is important to check with your Family Doctor before starting any new medication or taking anything over the counter (as certain medications can also interfere with coumadin) - Note that your Magnesium supplementation has been increased(for low magnesium level) - follow up with PCP: 7-10 days - follow up with nephrology: 2 weeks - you need to follow up with a vascular surgeon to discuss a NEW AV FISTULA for continued dilaysis - maintain dialysis sessions as outlined above. Since you had a session today, your next session will be due on Wednesday (THEN IT WILL BE Wed/Wed/Wed moving foward) - return to the ED for new or worsening symptoms Pending Studies at Discharge: No Stand-Alone Forms: My Zik[employer], Smoking Cessation Skilled Items Patient informed of condition?: Yes DNR: Yes Discharge Level of Care: Other Communicable Disease: No Discharge Prognosis: Stable Lines: None Urinary Catheter: No Medications and DC Order Prescriptions: New warfarin [Jantoven] 7.5 mg Tablet 7.5 mg PO .wednesday and Qty: 10 RF: 0 warfarin 5 mg tablet 5 mg PO DAILY Qty: 30 RF: 0 magnesium oxide 400 mg (241.3 mg magnesium) Tablet 400 mg PO BID Qty: 60 RF: 0 Continued multivitamin Tablet 1 tab PO PM RF: 0 omega-3 fatty acids [Fish Oil Concentrate] 1,000 mg Capsule 1,000 mg PO BID RF: 0 citalopram 10 mg tablet 10 mg PO QAM RF: 0 hydrocodone-acetaminophen 5-325 mg tablet 1 tab PO Q6H PRN (Reason: Pain) RF: 0 midodrine 5 mg tablet 5 mg PO TID RF: 0 permethrin 5 % cream 1 applic TOPICAL HS RF: 0 lansoprazole 30 mg capsule,delayed release(DR/EC) 30 mg PO QAM RF: 0 carbidopa-levodopa 10-100 mg tablet 1 tab PO TID RF: 0 folic acid 1 mg tablet 1 mg PO QAM RF: 0 ergocalciferol (vitamin D2) 1,250 mcg (50,000 unit) capsule 1,250 mcg PO Q14D RF: 0 hydroxyzine HCl 10 mg tablet 10 mg PO TID PRN (Reason: Itching) RF: 0 metoclopramide HCl 10 mg tablet 10 mg PO ACHS RF: 0 insulin lispro [Humalog KwikPen Insulin] 100 unit/mL Insulin Pen 0 unit SUBCUT ACHS RF: 0 cranberry extract 250 mg Tablet 125 mg PO BID RF: 0 Basaglar KwikPen U-100 Insulin 100 unit/mL (3 mL) Insulin Pen 25 unit SUBCUT HS RF: 0 Basaglar ThaddeusikPen U-100 Insulin 100 unit/mL (3 mL) Insulin Pen 20 unit SUBCUT HS RF: 0 Creon 12,000-38,000 -60,000 unit capsule,delayed release(DR/EC) 2 cap PO TIDM RF: 0 atorvastatin 20 mg Tablet 20 mg PO HS RF: 0 Discontinued magnesium oxide 400 mg (241.3 mg magnesium) tablet 400 mg PO QAM RF: 0 Discharge Orders: Discharge Order (Routine); Ordered 02/25/21 Ordered By: Dorinda Rowland/Other Patient Handouts: A1C Admission Data Admit Date/Time: 02/03/21 13:23 Attending Provider: Beau Denise Admit Provider: Kerwin Herrera Primary Care Provider: Phan Ruiz Other Providers: Les Whiting ; Joseph, ; Kerwin Herrera ; Vielka Ayala ; Ashkan Sandhu ; Lars Mcdonald Other Interventions: Discharge Summary Assessment (RN) Last Done: 02/25/21 13:32 Supervising Physician Co-Signing Physician Notes Patient seen and examined on the day of discharge. I agree with the discharge summary by Dorinda RUTHERFORD. I have reviewed the chart including labs, imaging and plans for discharge. patient doing much better, understands plan for discharge, INR is therapeutic - Acute CHF, volume overload secondary to missing HD treatment due to malfunctioning AV fistula now with tunneled HD catheter fluid was removed by HD, breathing much better found to have DVT, left subclavian vein, on Coumadin, INR therapeutic Coding Level of Care Code Established Pt D/C DAY MANAGEMENT >30 MINS Patient Type Established Diagnoses Syncopal episodes R55 DVT (deep venous thrombosis) I82.409 Acute blood loss anemia D62 AV fistula occlusion T82.898A Encounter type: initial encounter ESRD (end stage renal disease) N18.6 COVID-19 U07.1 Diabetes E11.9 Parkinson disease G20 GERD (gastroesophageal reflux disease) K21.9 CHF (congestive heart failure) I50.9 Time Spent (min) 60
== END 2021-02-25 15:36 | disposition home or self-care (01) | DRG 314 ==
LOC: ED 09:04 → SUATTDRO 13:23 → 2E 13:23 → 2W 02-08 09:58 → 3W 02-15 08:35
DX: E87.79 Other fluid overload; I82.890 Acute embolism and thrombosis of other specified veins; Z79.82 Long term (current) use of aspirin; U07.1 COVID-19; I50.9 Heart failure, unspecified; K21.9 Gastro-esophageal reflux disease without esophagitis; Z79.4 Long term (current) use of insulin; Z99.2 Dependence on renal dialysis; Z83.3 Family history of diabetes mellitus; D62 Acute posthemorrhagic anemia; Z87.891 Personal history of nicotine dependence; G20 Parkinson's disease; R09.02 Hypoxemia; N18.6 End stage renal disease; E11.22 Type 2 diabetes mellitus with diabetic chronic kidney disease; Y92.89 Other specified places as the place of occurrence of the external cause; Y92.239 Unspecified place in hospital as the place of occurrence of the external cause; Y84.1 Kidney dialysis as the cause of abnormal reaction of the patient, or of later complication, without mention of misadventure at the time of the procedure; R55 Syncope and collapse; T82.868A Thrombosis due to vascular prosthetic devices, implants and grafts, initial encounter; D63.1 Anemia in chronic kidney disease